=== PATIENT | male | born 1945 | race Caucasian/White ===

== ENCOUNTER 2016-07-21 07:38 | Emergency (ER) | payer MEDICARE, BC ==
[2016-07-21] MEDS ORDERED: OXYMETAZOLINE 0.05% NASL SPRAY 15 ML NASAL STA (08:21)
[2016-07-21] MEDS ORDERED: METOPROLOL TARTRATE 25 MG TAB PO STA (08:21)
[2016-07-21] MEDS: LIDOCAINE/EPINEPHR/TETRACAINE 5 ML BOTTLE TOPICAL ONE ×2 (08:22→08:25)
--- NOTE | 2016-07-21 08:29 | ED ---
ENT HPI - General Chief complaint: ENT Stated complaint: Nosebleed Time Seen by Provider: 07/21/16 08:16 Source: patient, RN notes reviewed Mode of arrival: wheelchair - History of Present Illness Initial comments: 71-year-old male presents to the emergency Department chief complaint epistaxis. Patient states he woke up this morning after starting hischest started bleeding. Mostly from the left they are. Patient denies any falls traumas or injuries. Patient states he had a bloody nose about a week ago but it stopped on its own. Patient states he didn't take his medications morning. Patient denies any pain. Patient denies any lightheadedness or dizziness. Patient states it is not currently having any other symptoms at this time. Patient denies any recent fever, chills, shortness of breath, chest pain, back pain, abdominal pain, nausea vomiting, numbness or tingling, dysuria or hematuria, constipation or diarrhea, headaches or visual changes, or any other current symptoms. - Related Data Home Medications Medication Instructions Recorded Confirmed Amitriptyline HCl [Elavil] 25 mg PO HS 05/12/14 07/21/16 Gabapentin [Neurontin] 400 mg PO BID 05/12/14 07/21/16 HYDROcodone/APAP 7.5-325MG [[place] 1 tab PO TID 05/12/14 07/21/16 7.5-325] Metoprolol Tartrate [Lopressor] 25 mg PO DAILY 05/12/14 07/21/16 Salsalate 750 mg PO BID 05/12/14 07/21/16 Sertraline [Zoloft] 100 mg PO DAILY 05/12/14 07/21/16 Mometasone Furoate [Mometasone 1 applic BOTH EARS DAILY PRN 07/21/16 07/21/16 Furoate 0.1%] Multivitamins, Thera [Multivitamin 1 tab PO DAILY 07/21/16 07/21/16 (formulary)] Previous Rx's Medication Instructions Recorded Amoxicillin/Potassium Clav 1 tab PO Q12HR #6 tab 07/21/16 [Augmentin 875-125 Tablet] Allergies Allergy/AdvReac Type Severity Reaction Status Date / Time No Known Allergies Allergy Verified 07/21/16 08:18 Review of Systems ROS Statement: Those systems with pertinent positive or pertinent negative responses have been documented in the HPI. ROS Other: All systems not noted in ROS Statement are negative. Past Medical History Past Medical History: Cancer, Hypertension, Osteoarthritis (OA) Additional Past Medical History / Comment(s): CHRONIC BACK PAIN, NEUROPATHY, HX OF RADIATION TO PROSTATE History of Any Multi-Drug Resistant Organisms: None Reported Past Surgical History: Hernia Repair, Prostate Surgery Additional Past Surgical History / Comment(s): UMBILICAL AND INGUINAL HERNIA, Past Anesthesia/Blood Transfusion Reactions: No Reported Reaction Past Psychological History: Anxiety Smoking Status: Current every day smoker Past Alcohol Use History: None Reported Additional Past Alcohol Use History / Comment(s): FORMER CIGARETTE SMOKER, DOES CHEW TOBACCO CURRENTLY Past Drug Use History: None Reported General Exam General appearance: alert, in no apparent distress Head exam: Present: atraumatic, normocephalic, normal inspection Eye exam: Present: normal appearance, PERRL, EOMI. Absent: scleral icterus, conjunctival injection, periorbital swelling ENT exam: Present: normal oropharynx, mucous membranes moist, other (Epistaxis noted from left naris) Neck exam: Present: normal inspection. Absent: tenderness, meningismus, lymphadenopathy Respiratory exam: Present: normal lung sounds bilaterally. Absent: respiratory distress, wheezes, rales, rhonchi, stridor Cardiovascular Exam: Present: regular rate, normal rhythm, normal heart sounds. Absent: systolic murmur, diastolic murmur, rubs, gallop, clicks Neurological exam: Present: alert, oriented X3, CN II-XII intact. Absent: motor sensory deficit Psychiatric exam: Present: normal affect, normal mood Skin exam: Present: warm, dry, intact, normal color. Absent: rash Course Vital Signs 07/21/16 07/21/16 07/21/16 07:43 07:59 08:46 Temperature 95.4 F L Pulse Rate 94 73 Respiratory 18 16 Rate Blood Pressure 188/95 162/92 144/91 O2 Sat by Pulse 97 97 Oximetry Medical Decision Making - Medical Decision Making 71-year-old male presents emergency Department chief complaint of epistaxis. At this time patient's nose was cleared and Afrin was sprayed into it. We was applied to the area. At this time the patient continued to have bleeding. Patient was double patch with Murocel. Patient tolerated this well. We discussed follow-up with ENT and given the number. We discussed return 3 days for packing removal if he cannot get in to ENT. Patient is in agreement with plan and questions have been answered. Disposition Clinical Impression: Anterior epistaxis Disposition: HOME SELF-CARE Condition: Stable Instructions: Nosebleed (ED) Additional Instructions: Please use medication as discussed. Please follow up with family doctor if symptoms have not improved over the next two days. Please return to the emergency room if your symptoms increase or worsen or for any other concerns. Patient needs to return the emergency room if packing has not been removed in 3 days. Use antibiotics to help prevent infection due to packing Prescriptions: Amoxicillin/Potassium Clav [Augmentin 875-125 Tablet] 1 tab PO Q12HR #6 tab Referrals: Kris Her MD [Primary Care Provider] - 1-2 days Chris Clemons MD [STAFF PHYSICIAN] - 1-2 days Time of Disposition: 10:06
[2016-07-21 09:18] VITALS: RESP 16
[2016-07-21 10:16] VITALS: BP 135/78; PULSE 60; TEMP 97.7
== END 2016-07-21 10:15 | disposition home or self-care (01) ==
LOC: EC 07:38
DX: R04.0 Epistaxis (principal); I10 Essential (primary) hypertension; F41.9 Anxiety disorder, unspecified; F17.200 Nicotine dependence, unspecified, uncomplicated; M19.90 Unspecified osteoarthritis, unspecified site; F17.220 Nicotine dependence, chewing tobacco, uncomplicated; Z85.9 Personal history of malignant neoplasm, unspecified; Z79.899 Other long term (current) drug therapy
CPT/HCPCS: 30901; 99283

== ENCOUNTER 2016-07-21 20:59 | Emergency (ER) | payer MEDICARE, BC ==
[2016-07-21 21:16] VITALS: RESP 18; TEMP 97.8
[2016-07-21] MEDS ORDERED: OXYMETAZOLINE 0.05% NASL SPRAY 15 ML NASAL STA (22:02)
--- NOTE | 2016-07-21 22:06 | ED ---
General Adult HPI - General Chief complaint: ENT Stated complaint: nose bleed Time Seen by Provider: 07/21/16 21:30 Source: patient, family, RN notes reviewed, old records reviewed Mode of arrival: wheelchair Limitations: no limitations - History of Present Illness Initial comments: Chief complaint and history of present illness a 71-year-old male who is here in the morning for left nares epistaxis. Was controlled that time with a Merocel tampon. He had one placed in both Nares. He was doing fine all day until this evening when he sneezed hard and started to bleed around the packing. No posterior bleeding. - Related Data Home Medications Medication Instructions Recorded Confirmed Amitriptyline HCl [Elavil] 25 mg PO HS 05/12/14 07/21/16 Gabapentin [Neurontin] 400 mg PO BID 05/12/14 07/21/16 HYDROcodone/APAP 7.5-325MG [[place] 1 tab PO TID 05/12/14 07/21/16 7.5-325] Metoprolol Tartrate [Lopressor] 25 mg PO DAILY 05/12/14 07/21/16 Salsalate 750 mg PO BID 05/12/14 07/21/16 Sertraline [Zoloft] 100 mg PO DAILY 05/12/14 07/21/16 Mometasone Furoate [Mometasone 1 applic BOTH EARS DAILY PRN 07/21/16 07/21/16 Furoate 0.1%] Multivitamins, Thera [Multivitamin 1 tab PO DAILY 07/21/16 07/21/16 (formulary)] Previous Rx's Medication Instructions Recorded Amoxicillin/Potassium Clav 1 tab PO Q12HR #6 tab 07/21/16 [Augmentin 875-125 Tablet] Allergies Allergy/AdvReac Type Severity Reaction Status Date / Time No Known Allergies Allergy Verified 07/21/16 21:56 Review of Systems ROS Statement: Those systems with pertinent positive or pertinent negative responses have been documented in the HPI. Review of systems patient denying any headache he is hard of hearing. He did have some blood coming out of the tear ducts of his eyes. This started after he sneezed. No nausea no vomiting no chest pain. All systems reviewed. Past medical problems significant for prostate cancer. Hypertension osteoarthritis. Also has a history of chronic back pain and chronic neuropathy. The patient' s surgeries include prostate surgery and hernia repair, patient has a past history psychological history of anxiety. Used to be a smoker stop his smoking does chew tobacco now. ROS Other: All systems not noted in ROS Statement are negative. Past Medical History Past Medical History: Cancer, Hypertension, Osteoarthritis (OA) Additional Past Medical History / Comment(s): CHRONIC BACK PAIN, NEUROPATHY, HX OF RADIATION TO PROSTATE History of Any Multi-Drug Resistant Organisms: None Reported Past Surgical History: Hernia Repair, Prostate Surgery Additional Past Surgical History / Comment(s): UMBILICAL AND INGUINAL HERNIA, Past Anesthesia/Blood Transfusion Reactions: No Reported Reaction Past Psychological History: Anxiety Smoking Status: Current every day smoker Past Alcohol Use History: None Reported Additional Past Alcohol Use History / Comment(s): FORMER CIGARETTE SMOKER, DOES CHEW TOBACCO CURRENTLY Past Drug Use History: None Reported General Exam - General Exam Comments Initial Comments: General: The patient is awake and alert, hard of hearing, bleeding from both nares. Patient had both nares packed this morning because of a left-sided epistaxis. Temp 97.8 pulse 97 respiratory rate 18 pulse ox 96% room air blood pressure 146/ 80. Eye: Pupils are equal, round and reactive to light, extra-ocular movements are intact ; there is normal conjunctiva bilaterally. No signs of icterus. She does have blood coming through the tear ducts because of obstruction caused by his nasal tampons for epistaxis. The blood stopped coming through the tear ducts when the tampons were removed from the nose. Ears, nose, mouth and throat: Epistaxis. Nasal tampons removed. Replaced with shorter marrow cells that were then soaked with Afrin nasal spray. Bleeding controlled. Neck: The neck is supple, there is no tenderness . Cardiovascular: There is a regular rate and rhythm. No murmur, rub or gallop is appreciated. Respiratory: Lungs are clear to auscultation, respirations are non-labored, breath sounds are equal. No wheezes, stridor, rales, or rhonchi. No complaint nausea vomiting or diarrhea. Limitations: no limitations Course Vital Signs 07/21/16 21:14 Temperature 97.8 F Pulse Rate 97 Respiratory 18 Rate Blood Pressure 146/80 O2 Sat by Pulse 96 Oximetry Procedures - Procedures Initial comment: Procedure; the 2 Merocel sponges had been placed this morning were dislodged by the patient's knees. He is bleeding around the sponges. They're both removed patient then blew his nose until all clots removed fresh blood was coming out. And then 2 shorter Merocel sponges were placed in the left and right nares. They're within so with Afrin nasal spray and the bleeding stopped. There is no evidence of any time a posterior bleeding. No anterior bleeding this time either. The patient be observed and then discharged home to continue with his antibiotics and then also advised to put several drops of the provided nasal spray on the sponges every several hours to keep them moist. If at any time the patient has posterior bleeding his return emergency room. Patient vital signs are stable blood pressure upon arrival was 146/80. Also noted the patient is taking an aspirin product to be told not to take this with the next several days. Dr. Mahajan Medical Decision Making - Medical Decision Making Medical decision-making. As noted in the procedure the patient's Merocel tampons or removed 2 more were replaced after being coated with bacitracin they were then saturated with Afrin nasal spray. Patient was also told not take his aspirin products until he talks his family physician in the next several days. Disposition Clinical Impression: Anterior epistaxis Disposition: HOME SELF-CARE Condition: Stable Instructions: Nosebleed (ED) Referrals: Kris Her MD [Primary Care Provider] - 1-2 days Time of Disposition: 22:57
[2016-07-21] MEDS ORDERED: cloNIDine HCL 0.1 MG TAB PO STA (23:10)
[2016-07-21 23:46] VITALS: BP 162/95; PULSE 79
== END 2016-07-21 23:45 | disposition home or self-care (01) ==
LOC: EC 20:59
DX: R04.0 Epistaxis (principal); I10 Essential (primary) hypertension; M19.90 Unspecified osteoarthritis, unspecified site; F41.9 Anxiety disorder, unspecified; F17.220 Nicotine dependence, chewing tobacco, uncomplicated; Z85.46 Personal history of malignant neoplasm of prostate; Z79.891 Long term (current) use of opiate analgesic
CPT/HCPCS: 30901; 99283

== ENCOUNTER → 2016-08-04 | Outpatient (CLI) | payer MEDICARE, BC ==
[2016-08-04 14:24] LABS: Basophils # (A) 0.1 k/uL (0-0.2); Basophils % (A) 1 %; CH 33.1; CHCM 33.6; Eosinophils # (A) 0.5 k/uL (0-0.7); Eosinophils % (A) 5 %; HCT 47.6 % (39.0-53.0); HDW 2.44; HGB 15.4 gm/dL (13.0-17.5); Luc # (Auto) 0.18; Luc % (Auto) 2; Lymphocytes # (A) 1.4 k/uL (1.0-4.8); Lymphocytes % (A) 15 %; MCH 32.1 pg (25.0-35.0); MCHC 32.4 g/dL (31.0-37.0); Mean Platelet Volume 9.8; Monocytes # (A) 0.7 k/uL (0-1.0); Monocytes % (A) 7 %; Neutrophils # (A) 6.8 k/uL (1.3-7.7); Neutrophils % (A) 71 %; RBC 4.81 m/uL (4.30-5.90); RDW 12.6 % (11.5-15.5); WBC 9.6 k/uL (3.8-10.6); WBC (Perox) 9.27
[2016-08-04 14:31] LABS: Partial Thromboplastin Time 23.4 sec (22.0-30.0); Prothrombin Time 10.5 sec (9.0-12.0)
--- NOTE | 2016-08-04 15:12 | CT ---
EXAMINATION TYPE: CT sinus wo con DATE OF EXAM: 08/04/2016 1:50 PM COMPARISON: NONE HISTORY: 71-year-old male sudden onset nose bleeds CT DLP: 219 mGycm Automated exposure control for dose reduction was used. TECHNIQUE: Noncontrast axial views of the paranasal sinuses were obtained. Coronal reconstructions pe rformed. FINDINGS: Moderate mucosal thickening scattered throughout the ethmoid air cells. Polyp or mucosal cysts along the inferior right maxillary sinus. Larger irregular area of partial opa cification in the left maxillary sinus could represent a polyp. There is no air-fluid level. Reactive royal- osteogenesis is not seen. There is no destruction of the osseous aggarwal of the paranasal sinuses. The osteomeatal complexes are patent. Prominent leftward nasal septal deviation The imaged brain shows mild generalized volume loss. Orbits are normal in appearance. Mastoid air cells and middle ear cavities are well pneumatized. Reformatted images confirm above findings. IMPRESSION: 1. Prominent leftward nasal septal deviation. 2. Moderate chronic ethmoid and maxillary sinus disease. 3. An irregular area of partial opacification within the left maxillary sinus could represent a polyp .
== END | disposition home or self-care (01) ==
LOC: RADCTMAIN 13:06
PROVIDERS: ATTEND Otolaryngology
DX: J32.0 Chronic maxillary sinusitis (principal); J32.2 Chronic ethmoidal sinusitis; J34.2 Deviated nasal septum; R04.0 Epistaxis
CPT/HCPCS: 36415; 70486; 85025; 85610; 85730

== ENCOUNTER → 2016-09-03 | Outpatient (CLI) | payer MEDICARE, BC ==
[2016-09-03 16:04] LABS: Basophils # (A) 0.1 k/uL (0-0.2); Basophils % (A) 0 %; CH 31.6; CHCM 32.5; Eosinophils # (A) 0.4 k/uL (0-0.7); Eosinophils % (A) 3 %; HCT 42.7 % (39.0-53.0); HDW 2.51; Luc # (Auto) 0.21; Luc % (Auto) 1; Lymphocytes # (A) 1.5 k/uL (1.0-4.8); Lymphocytes % (A) 10 %; MCHC 32.8 g/dL (31.0-37.0); MCV 97.7 fL (80.0-100.0); Mean Platelet Volume 9.4; Monocytes # (A) 0.8 k/uL (0-1.0); Monocytes % (A) 5 %; Neutrophils # (A) 12.2 k/uL (1.3-7.7); Neutrophils % (A) 81 %; RBC 4.37 m/uL (4.30-5.90); WBC 15.1 k/uL (3.8-10.6); WBC (Perox) 14.91
[2016-09-03 16:14] LABS: ALT 30 U/L (21-72); AST 37 U/L (17-59); Alkaline Phosphatase 136 U/L (38-126); Amylase 43 U/L (30-110); Anion Gap 12 mmol/L; Blood Urea Nitrogen 17 mg/dL (9-20); Calcium 9.5 mg/dL (8.4-10.2); Carbon Dioxide 26 mmol/L (22-30); Chloride 101 mmol/L (98-107); Glucose 164 mg/dL (74-99); Non-African American GFR(MDRD) >60 (>60 ml/min/1.73 sqM); Potassium 4.5 mmol/L (3.5-5.1); Sodium 139 mmol/L (137-145); Total Bilirubin 0.6 mg/dL (0.2-1.3)
--- NOTE | 2016-09-03 18:18 | CT ---
EXAMINATION TYPE: CT abdomen pelvis w con DATE OF EXAM: 09/03/2016 5:53 PM COMPARISON: 03/13/2016 HISTORY: Pain, food not going down CT DLP: 1882 mGycm Automated exposure control for dose reduction was used. TECHNIQUE: Helical acquisition of images was performed from the lung bases through the pelvis. CONTRAST: Performed with Oral Contrast and with IV Contrast, patient injected with 100 mL of Omnipaque 300. FINDINGS: There is mild subsegmental atelectasis at the left lung base. There is no pleural effusion. There are multiple subtle hypodense foci in the liver that measure up to the most 2 cm. Bile ducts are not dil ated. Gallbladder appears normal. There is no pancreatic mass. There are small calcified splenic gran ulomata. There are bilateral renal cortical cysts and the largest is on the upper pole left kidney po steriorly and measures 5 cm. There is no hydronephrosis. There is a 3 mm calcification in the lower p ole left kidney. There is a 1 cm splenic cyst. There is no adrenal mass. There is no retroperitoneal adenopathy. There is no ascites. There is a 9 x 3 cm fluid collection on the anterior abdominal wall in the midline consistent with a seroma. I see no pelvic mass. There are surgical clips at the floor the pelvis. There is mild thickening of the uri nary bladder wall and more noticeable on the anterior floor of the bladder on the left side of midlin e. There is no free fluid in the pelvis. Appendix appears normal. I see no bony destructive process. There is no compression fracture. IMPRESSION: SINCE THE LAST CT SCAN THERE IS APPEARANCE OF MULTIPLE SUBTLE HYPODENSE LIVER LESIONS THAT ARE SUSPIC IOUS FOR METASTATIC DISEASE. STABLE BILATERAL RENAL CORTICAL CYSTS. NONOBSTRUCTING SMALL LEFT RENAL CALCULUS. STABLE SUBCUTANEOUS FLUID COLLECTION OVER THE ANTERIOR LOWER ABDOMEN CONSISTENT WITH CHRONIC HEMATOMA OR SEROMA. ATHEROSCLEROTIC VASCULAR DISEASE. STABLE 4.6 CM LOWER ABDOMINAL AORTIC ANEURYSM. STABLE MILD ANEURYSM OF THE COMMON ILIAC ARTERIES. NORMAL APPENDIX. THERE IS NEW MILD SUBSEGMENTAL ATELECTASIS AT THE LEF T LUNG BASE. Surgery noted at the floor the pelvis consistent with prostate surgery. There is some bl adder wall thickening on the left side and recurrent tumor or primary bladder tumor cannot be exclude d.
== END | disposition home or self-care (01) ==
LOC: RADCTMAIN 15:24
PROVIDERS: ATTEND Family Medicine
DX: N20.0 Calculus of kidney (principal); I71.4 Abdominal aortic aneurysm, without rupture; N28.1 Cyst of kidney, acquired; I72.3 Aneurysm of iliac artery; K76.9 Liver disease, unspecified; I70.90 Unspecified atherosclerosis; R18.8 Other ascites; Z98.890 Other specified postprocedural states
CPT/HCPCS: 80053; 82150; 83690; 85025; 74177; Q9967

== ENCOUNTER 2016-09-16 12:05 | Day surgery (SDC) | payer MEDICARE, BC ==
[2016-09-12 11:17] VITALS: BMI 32.7
[~2016-09-16 12:05] MED LIST: LACTATED RINGERS 1,000 ML IV SCH
[2016-09-16] MEDS ORDERED: LIDOCAINE 1% 20 ML VIAL (10MG/ML) FOR IV START INTRADERMA ONE (13:01)
[2016-09-16 13:03] VITALS: RESP 16; TEMP 98.1
[2016-09-16] MEDS ORDERED: PROPOFOL 10 MG/ML 20 ML VIAL IV ONE (13:25)
[2016-09-16] MEDS ORDERED: LIDOCAINE 1% INJ 10MG/ML (20 ML MDV) ONE (13:25)
[2016-09-16 14:09] VITALS: BP 139/80; PULSE 74
--- NOTE | 2016-09-16 14:52 | P.PCN ---
Date of Procedure: 09/16/16 Preoperative Diagnosis: Postoperative Diagnosis: Procedure(s) Performed: Procedure: Esophagogastroduodenoscopy and biopsy. Preoperative diagnosis: Epigastric pain and weight loss. Postoperative diagnosis: 1. Ulcerated mass in the distal esophagus/cardia with some degree of obstruction, biopsies obtained. 2. Mild gastritis and duodenitis , biopsies obtained. Preparation and sedation: Was provided by anesthesia. Brief clinical history: The patient is a 71-year-old male who has been experiencing epigastric pain and early satiety and fullness after eating a few bites only and weight loss of around 30 pounds over the last month. CT of the abdomen performed last month showed hypodense lesions in the liver consistent with metastatic disease. This evaluation is requested to rule out esophageal or gastric pathology. Procedure: With the patient on his left lateral decubitus position and after informed consent and adequate sedation, I passed the Olympus-GIF 160 video upper endoscope through the cricopharyngeus down the esophagus. The esophagus did not show any proximal abnormalities. In the distal esophagus and extending into the cardia there was an ulcerated mass consistent with cancer. This was causing some degree obstruction but I was able to pass the endoscope without difficulty across the distal esophagus into the stomach. In the retroflex view in the cardia I could see the abnormal mass as well. GE junction was around 41 cm from the incisors and there was a hiatal hernia but no obvious Vanegas's esophagus. Pictures were taken in both the forward and retroflex view and I obtained biopsies in that area, in the distal esophagus/cardia, at the conclusion of the exam. The stomach was insufflated with air then the endoscope was passed through the pylorus into the duodenum. There was minimal mottling and erythema in the antrum and duodenum but no ulcers, bleeding, gastric outlet obstruction or other pathology. I obtained biopsies from the antrum then I obtained multiple biopsies from the esophageal/cardia mass then the endoscope was withdrawn. The patient tolerated the procedure well. Plan: I summarized the findings to the patient. He is scheduled for a liver biopsy on . I understand he will be following up with you after that. Further plans can be made based on his course and biopsy results. Implants: Indications for Procedure: Operative Findings: Description of Procedure:
== END 2016-09-16 14:21 | disposition home or self-care (01) ==
LOC: ORWHC2ENDO 12:05
DX: C16.0 Malignant neoplasm of cardia (principal); K29.50 Unspecified chronic gastritis without bleeding; K29.80 Duodenitis without bleeding; K76.9 Liver disease, unspecified; K44.9 Diaphragmatic hernia without obstruction or gangrene; I10 Essential (primary) hypertension; C61 Malignant neoplasm of prostate; Z88.1 Allergy status to other antibiotic agents; Z79.891 Long term (current) use of opiate analgesic; Z79.899 Other long term (current) drug therapy
CPT/HCPCS: 88305; 88342; 88341; 43239; J2001; J2704

== ENCOUNTER 2016-09-18 09:10 | Day surgery (SDC) | payer MEDICARE, BC ==
[2016-09-18 09:53] VITALS: RESP 14; TEMP 98.2
[2016-09-18 09:54] LABS: Mean Platelet Volume 9.6
[2016-09-18] MEDS ORDERED: ALPRAZolam 0.25 MG TAB PO STA (09:56)
[2016-09-18] MEDS ORDERED: HYDROmorphone 1 MG/ML 1 ML SYRINGE IVP STA (09:56)
[2016-09-18 09:58] LABS: INR 1.2 (<1.1)
--- NOTE | 2016-09-18 11:22 | US ---
EXAMINATION TYPE: US biopsy liver DATE OF EXAM: 09/18/2016 HISTORY: Liver masses. FINDINGS: Maximal barrier technique was utilized. The skin overlying a suitable path to the patient' s mass in the right lobe was localized with ultrasound and the overlying skin prepped and draped. Ul trasound was utilized with sterile technique. Lidocaine was used for local anesthesia. A skin leann was made with a scalpel. An 18-gauge needle was advanced under direct ultrasound guidance and core s pecimen obtained of the mass. Specimen submitted in formalin to Pathology. Following the procedure, hemostasis achieved and the patient is discharged in stable condition without complication. Impression: status POST ULTRASOUND GUIDED CORE BIOPSY OF right lobe liver MASS, PATHOLOGY IS PENDING. THIS PROCEDURE IS PERFORMED BY THE UNDERSIGNED. Multiple liver masses are present.
[2016-09-18 15:21] VITALS: BP 100/53; PULSE 62
== END 2016-09-18 15:10 | disposition home or self-care (01) ==
LOC: RADPROMAIN 09:10
PROVIDERS: ATTEND Internal Medicine Hematology & Oncology
DX: C78.7 Secondary malignant neoplasm of liver and intrahepatic bile duct (principal); C61 Malignant neoplasm of prostate
CPT/HCPCS: 85049; 85610; 88342; 88307; 88341; 96374; 47000; 76942; J1170

== ENCOUNTER 2016-09-25 14:36 | Inpatient (IN) | payer MEDICARE, BC ==
[2016-09-25] MEDS ORDERED: MOMETASONE FUROATE BOTH EARS PRN (15:43)
[2016-09-25] MEDS ORDERED: AMITRIPTYLINE HCL 25 MG TAB PO PRN (15:43)
[2016-09-25] MEDS ORDERED: ONDANSETRON 4 MG/2 ML VIAL IVP PRN (15:57)
[2016-09-25 16:29] LABS: Basophils % (A) 0 %; CH 30.8; CHCM 32.3; Eosinophils # (A) 0.2 k/uL (0-0.7); Eosinophils % (A) 1 %; HCT 37.9 % (39.0-53.0); HDW 2.39; Luc # (Auto) 0.26; Luc % (Auto) 1; Lymphocytes # (A) 0.9 k/uL (1.0-4.8); Lymphocytes % (A) 4 %; MCH 30.2 pg (25.0-35.0); MCHC 31.6 g/dL (31.0-37.0); MCV 95.6 fL (80.0-100.0); Mean Platelet Volume 9.8; Monocytes # (A) 1.3 k/uL (0-1.0); Monocytes % (A) 6 %; Neutrophils # (A) 18.7 k/uL (1.3-7.7); Neutrophils % (A) 88 %; RBC 3.96 m/uL (4.30-5.90); RDW 12.4 % (11.5-15.5); WBC 21.4 k/uL (3.8-10.6); WBC (Perox) 22.21
[2016-09-25 16:36] LABS: ALT 47 U/L (21-72); AST 56 U/L (17-59); Alkaline Phosphatase 309 U/L (38-126); Anion Gap 9 mmol/L; Blood Urea Nitrogen 18 mg/dL (9-20); Calcium 8.9 mg/dL (8.4-10.2); Carbon Dioxide 28 mmol/L (22-30); Chloride 97 mmol/L (98-107); Glucose 149 mg/dL (74-99); Non-African American GFR(MDRD) >60 (>60 ml/min/1.73 sqM); Potassium 4.6 mmol/L (3.5-5.1); Sodium 134 mmol/L (137-145); Total Bilirubin 0.8 mg/dL (0.2-1.3)
[2016-09-25 16:40] LABS: INR 1.2 (<1.1); Prothrombin Time 12.2 sec (9.0-12.0)
[2016-09-25] MEDS: HYDROcodone/APAP 7.5-325MG 1 EACH TAB PO PRN (17:06)
[2016-09-25] MEDS: SODIUM CHLORIDE 0.9% 1,000 ML IV SCH (17:07)
--- NOTE | 2016-09-25 17:08 | P.PN ---
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 He was being seen in office today and was evaluated as being dehydrated with significant dysphagia and odynophagia. He was admitted directly from office for hydration, consult Dr. Goldberg for PEG tube insertion and port placement-Dr. Millan spoke with him. Consults for Dietitian and PT. Orders entered, spoke with nursing. Formal H&P in AM. Objective - Vital Signs Vital signs: Vital Signs Temp 98.3 F 09/25/16 15:00 Pulse 85 09/25/16 15:00 Resp 20 09/25/16 15:00 BP 128/68 09/25/16 15:00 Pulse Ox 95 09/25/16 15:00 Intake & Output 09/24/16 09/25/16 09/25/16 18:59 06:59 18:59 Weight 106.594 kg - Labs CBC & Chem 7: 09/25/16 16:12 09/25/16 16:12 Labs: Abnormal Lab Results - Last 24 Hours (Table) 09/25/16 09/25/16 09/25/16 Range/Units 16:12 16:12 16:12 WBC 21.4 H (3.8-10.6) k/uL RBC 3.96 L (4.30-5.90) m/uL Hgb 12.0 L (13.0-17.5) gm/dL Hct 37.9 L (39.0-53.0) % Neutrophils # 18.7 H (1.3-7.7) k/uL Lymphocytes # 0.9 L (1.0-4.8) k/uL Monocytes # 1.3 H (0-1.0) k/uL PT 12.2 H (9.0-12.0) sec Sodium 134 L (137-145) mmol/L Chloride 97 L (98-107) mmol/L Glucose 149 H (74-99) mg/dL Alkaline Phosphatase 309 H (38-126) U/L Total Protein 6.0 L (6.3-8.2) g/dL Albumin 2.9 L (3.5-5.0) g/dL Assessment and Plan (1) Dehydration Narrative/Plan: IVF resuscitation initiated. Clear liquid diet until Sppech Therapy eval Status: Acute (2) Metastatic adenocarcinoma Narrative/Plan: New diagnosis, Port being placed for chemo Status: Acute (3) Dysphagia Status: Acute (4) Odynophagia Status: Acute Plan: PEG being placed for nutrition while on chemo. Surgery and Dietitian consulted. SCDs for DVT prophylaxis GI prophylaxis Pt seen in office, will see pt in hospital in AM Orders reviewed with nursing
[2016-09-25] MEDS: GABAPENTIN 400 MG CAP PO SCH (20:57)
[2016-09-26] MEDS: SODIUM CHLORIDE 0.9% 1,000 ML IV SCH ×3 (06:15→16:35)
[2016-09-26] MEDS: GABAPENTIN 400 MG CAP PO SCH ×2 (09:18→21:38)
[2016-09-26] MEDS: PANTOPRAZOLE 40 MG/10 ML VIAL IVP SCH (09:18)
[2016-09-26] MEDS: MULTIVITAMINS, THERA 1 EACH TAB PO SCH (09:18)
[2016-09-26] MEDS: METOPROLOL TARTRATE 25 MG TAB PO SCH (09:18)
[2016-09-26] MEDS: SERTRALINE 100 MG TAB PO SCH (09:18)
[2016-09-26] MEDS ORDERED: IV FLUID CONTINUATION 1,000 ML IV ONE (12:00)
[2016-09-26] MEDS ORDERED: DEXAMETHASONE SOD PHOSPHATE 10 MG/ML 1 ML VIAL IV ONE (12:31)
[2016-09-26] MEDS ORDERED: ONDANSETRON 4 MG/2 ML VIAL IVP ONE (12:32)
[2016-09-26] MEDS ORDERED: LIDOCAINE (PF) 10 MG/ML 2 ML VIAL SQ ONE (13:27)
[2016-09-26] MEDS ORDERED: HEPARIN SODIUM,PORCINE 100 UNIT/ML 5 ML VIAL IV ONE ×2 (13:27→14:30)
--- NOTE | 2016-09-26 13:40 | P.GSCN ---
History of Present Illness Consult date: 09/26/16 Reason for Consult: Esophageal cancer History of present illness: Patient was admitted yesterday with complaints of dysphagia and malnutrition. We were asked to see this patient for PEG tube placement and Port-A-Cath placement. He is to begin chemotherapy in the next several days. Describes progressive dysphasia over the last 2 months or so. He had an upper endoscopy performed by Dr. Limon showing a obstructing lesion. Workup has shown multiple liver metastasis. Past Medical History Past Medical History: Cancer, Hypertension, Osteoarthritis (OA) Additional Past Medical History / Comment(s): CHRONIC BACK PAIN, Hx prostate cancer 1995 HAD SX And radiation-pt incont of urien wears a pad.hepatitis as child. 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 "recently dx w esopaheal ca and mets to liver. History of Any Multi-Drug Resistant Organisms: None Reported Past Surgical History: Hernia Repair, Prostate Surgery Additional Past Surgical History / Comment(s): UMBILICAL AND INGUINAL HERNIA, surgery for nose bleeds, egd w/ bx, liver bx, prostatectomy Past Anesthesia/Blood Transfusion Reactions: No Reported Reaction Smoking Status: Former smoker - Past Family History Mother Family Medical History: CVA/TIA Additional Family Medical History / Comment(s): mom from a stroke when pt was 4 years old. Father Family Medical History: No Reported History Medications and Allergies Home Medications Medication Instructions Recorded Confirmed Type Amitriptyline HCl [Elavil] 25 mg PO HS PRN 05/12/14 09/25/16 History Gabapentin [Neurontin] 400 mg PO BID 05/12/14 09/25/16 History HYDROcodone/APAP 7.5-325MG [[place] 1 tab PO TID PRN 05/12/14 09/25/16 History 7.5-325] Metoprolol Tartrate [Lopressor] 25 mg PO DAILY 05/12/14 09/25/16 History Sertraline [Zoloft] 100 mg PO DAILY 05/12/14 09/25/16 History Mometasone Furoate [Mometasone 1 applic BOTH EARS DAILY PRN 07/21/16 09/25/16 History Furoate 0.1%] Multivitamins, Thera [Multivitamin 1 tab PO DAILY 07/21/16 09/25/16 History (formulary)] Allergies Allergy/AdvReac Type Severity Reaction Status Date / Time cephalexin [From Keflex] Allergy Rash/Hives Verified 09/25/16 15:31 Surgical - Exam Vital Signs Temp Pulse Resp BP Pulse Ox 98.3 F 85 20 128/68 95 09/25/16 15:00 09/25/16 15:00 09/25/16 15:00 09/25/16 15:00 09/25/16 15:00 Physical exam: General: Well-developed, well-nourished HEENT: Normocephalic, sclerae nonicteric Abdomen: Nontender, nondistended Extremities: No edema Neuro: Alert and oriented Results - Labs 09/25/16 16:12 09/25/16 16:12 Abnormal Lab Results - Last 24 Hours (Table) 09/25/16 09/25/16 09/25/16 Range/Units 16:12 16:12 16:12 WBC 21.4 H (3.8-10.6) k/uL RBC 3.96 L (4.30-5.90) m/uL Hgb 12.0 L (13.0-17.5) gm/dL Hct 37.9 L (39.0-53.0) % Neutrophils # 18.7 H (1.3-7.7) k/uL Lymphocytes # 0.9 L (1.0-4.8) k/uL Monocytes # 1.3 H (0-1.0) k/uL PT 12.2 H (9.0-12.0) sec Sodium 134 L (137-145) mmol/L Chloride 97 L (98-107) mmol/L Glucose 149 H (74-99) mg/dL Alkaline Phosphatase 309 H (38-126) U/L Total Protein 6.0 L (6.3-8.2) g/dL Albumin 2.9 L (3.5-5.0) g/dL Diabetes panel 09/25/16 Range/Units 16:12 Sodium 134 L (137-145) mmol/L Potassium 4.6 (3.5-5.1) mmol/L Chloride 97 L (98-107) mmol/L Carbon Dioxide 28 (22-30) mmol/L BUN 18 (9-20) mg/dL Creatinine 0.78 (0.66-1.25) mg/dL Glucose 149 H (74-99) mg/dL Calcium 8.9 (8.4-10.2) mg/dL AST 56 (17-59) U/L ALT 47 (21-72) U/L Alkaline Phosphatase 309 H (38-126) U/L Total Protein 6.0 L (6.3-8.2) g/dL Albumin 2.9 L (3.5-5.0) g/dL Calcium panel 09/25/16 Range/Units 16:12 Calcium 8.9 (8.4-10.2) mg/dL Albumin 2.9 L (3.5-5.0) g/dL Pituitary panel 09/25/16 Range/Units 16:12 Sodium 134 L (137-145) mmol/L Potassium 4.6 (3.5-5.1) mmol/L Chloride 97 L (98-107) mmol/L Carbon Dioxide 28 (22-30) mmol/L BUN 18 (9-20) mg/dL Creatinine 0.78 (0.66-1.25) mg/dL Glucose 149 H (74-99) mg/dL Calcium 8.9 (8.4-10.2) mg/dL Adrenal panel 09/25/16 Range/Units 16:12 Sodium 134 L (137-145) mmol/L Potassium 4.6 (3.5-5.1) mmol/L Chloride 97 L (98-107) mmol/L Carbon Dioxide 28 (22-30) mmol/L BUN 18 (9-20) mg/dL Creatinine 0.78 (0.66-1.25) mg/dL Glucose 149 H (74-99) mg/dL Calcium 8.9 (8.4-10.2) mg/dL Total Bilirubin 0.8 (0.2-1.3) mg/dL AST 56 (17-59) U/L ALT 47 (21-72) U/L Alkaline Phosphatase 309 H (38-126) U/L Total Protein 6.0 L (6.3-8.2) g/dL Albumin 2.9 L (3.5-5.0) g/dL Assessment and Plan (1) Metastatic adenocarcinoma Narrative/Plan: Port-A-Cath placement and EGD with PEG tube placement today. Risks of bleeding infection and catheter malfunction discussed. They understand and wish to proceed. Status: Acute
[2016-09-26] MEDS ORDERED: fentaNYL (PF) 50 MCG/ML 2 ML AMP ONE (14:09)
[2016-09-26] MEDS ORDERED: PROPOFOL 10 MG/ML 20 ML VIAL IV ONE (14:09)
[2016-09-26] MEDS ORDERED: MIDAZOLAM 2 MG/2 ML VIAL ONE (14:09)
[2016-09-26] MEDS ORDERED: LIDOCAINE 1% (PF) 10MG/ML VIAL SQ ONE (14:30)
[2016-09-26] MEDS ORDERED: LACTATED RINGERS 1,000 ML IV ONE (14:47)
--- NOTE | 2016-09-26 15:04 | P.PCN ---
Date of Procedure: 09/26/16 Preoperative Diagnosis: Postoperative Diagnosis: Procedure(s) Performed: PREOPERATIVE DIAGNOSIS: Esophageal cancer POSTOPERATIVE DIAGNOSIS: Same PROCEDURE: Port-A-Cath placement, EGD with PEG tube placement SURGEON: Ashlyn EBL: Minimal ANESTHESIA: Sedation COMPLICATIONS: None OPERATIVE PROCEDURE: Patient was brought and placed on the operative table in the supine position. The patient was sedated per anesthesia that time. The chest and neck were prepped and draped in usual sterile fashion. The ultrasound probe was used to identify the location of the right internal jugular vein. The skin was localized with lidocaine. The Seldinger needle was advanced into the IJ under ultrasound guidance. The wire was advanced through the needle under fluoroscopic guidance into the superior vena cava. A port pocket was created in the right infraclavicular location. The catheter was tunneled from the wire entrance site to the port pocket. The port was then connected to the catheter. The dilator introducer was threaded over the guidewire. The guidewire and dilator were then removed. The catheter was advanced through the introducer and introducer was then removed. The tip was seen to be in the right atrial junction. Port was flushed with both saline and a Hep-Lock solution. There was good flow both in and out of the port. The port was sutured in underlying tissues using 3-0 silk sutures. The subcutaneous tissues were reapproximated using 3-0 Vicryl sutures and the skin at both locations using 4-0 Monocryl sutures. Steri-Strips and sterile dressings then applied. The Olympus gastroscope was inserted into the oropharynx and passed under direct visualization to the region of the duodenum. The patient's esophageal mass did not obstruct the passage of our scope. The pylorus was widely patent. The stomach was carefully inspected. The stomach was fully insufflated with air. The abdominal wall was inspected. The light was seen shining through the abdominal wall in the left upper quadrant. This site was chosen for PEG tube placement. The area was prepped in the usual sterile fashion. This area was then localized with lidocaine. A small vertical incision was made using the scalpel. The Seldinger needle was advanced into the lumen of the stomach the wire was advanced. The wire was grasped with an endoscopic snare. The wire was pulled through the oropharynx. The catheter was then threaded over the guidewire and the guidewire and catheter were pulled anteriorly until the hub of the PEG tube catheter was seated against the anterior wall the stomach. The circular bolster was applied and tightened down. The endoscope was then readvanced into the stomach. There was no evidence of any bleeding and there was appropriate tightness on the bolster. The catheter was cut appropriately. The dual port feeding adapter was applied. DISPOSITION: Stable to recovery room Implants: Indications for Procedure: Operative Findings: Description of Procedure:
--- NOTE | 2016-09-26 15:28 | XR ---
EXAMINATION TYPE: XR chest 1V confirm line [facility] DATE OF EXAM: 09/26/2016 COMPARISON: NONE HISTORY: Status post central venous catheter placement TECHNIQUE: Single frontal view of the chest is obtained. FINDINGS: Right-sided central venous catheter is present via jugular approach, distal tip is overlyi ng the region of the cavoatrial junction, port is in the right pectoral region. There is no evident p neumothorax or pleural effusion. IMPRESSION: No evident complication status post central venous catheter placement.
[2016-09-26] MEDS: HYDROcodone/APAP 7.5-325MG 1 EACH TAB PO PRN ×2 (15:57→21:37)
--- NOTE | 2016-09-26 15:59 | FL ---
Fluoroscopy HISTORY: Pain 4 seconds fluoroscopy time supplied to the referring clinician. 1 intraoperative C-arm images docume nt the procedure. See dictated report from general surgery.
--- NOTE | 2016-09-26 17:10 | P.HPIM ---
History of Present Illness H&P Date: 09/26/16 Chief Complaint: anorexia Mr. Luke is a very pleasant male pt of Dr. Millan who was referred by Dr. Her for evaluation of possible malignancy, 1st seen 09/10/16. Pt had c/ o progressive epigastric pain, onset 10-20 min after meals resulting in nausea, rare vomiting, symptoms alleviated by laying in supine position X 30 min. He had negative Colonoscopy by Dr. Arnold in May 2016 other then a cecal polyp. CT AP 09/03 revealed multiple small liver lesions that were new compared to study of Feb 2016. CBC revealed leukocytosis and minimally increased ALK-P. Pt has been progressively anorexic and lost 26 LBS in last 3 months. Pt had EGD with biopsy with Dr. 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 Pt was seen in office for results and plan of care on 09/25/16 when he noted to be progressively declining , pt in general not feeling well, progressive dysphagia, inability to sustain any solids/liquids. Decision was made to admit pt for hydration, PEG insertion for nutrition and port placement as pt is interested in palliative chemotherapy. Pt seen today post op, he is tired and sore but otherwise he is tolerating sips of water, no nausea, SOB, need to go to the bathroom, pt is ambulating. Review of Systems All systems: negative Constitutional: Reports as per HPI Past Medical History Past Medical History: Cancer, Hypertension, Osteoarthritis (OA) Additional Past Medical History / Comment(s): CHRONIC BACK PAIN, Hx prostate cancer 1995 HAD SX And radiation-pt incont of urien wears a pad.hepatitis as child. 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 "recently dx w esopaheal ca and mets to liver. History of Any Multi-Drug Resistant Organisms: None Reported Past Surgical History: Hernia Repair, Prostate Surgery Additional Past Surgical History / Comment(s): UMBILICAL AND INGUINAL HERNIA, surgery for nose bleeds, egd w/ bx, liver bx, prostatectomy Past Anesthesia/Blood Transfusion Reactions: No Reported Reaction Smoking Status: Former smoker - Past Family History Mother Family Medical History: CVA/TIA Additional Family Medical History / Comment(s): mom from a stroke when pt was 4 years old. Father Family Medical History: No Reported History Medications and Allergies Home Medications Medication Instructions Recorded Confirmed Type Amitriptyline HCl [Elavil] 25 mg PO HS PRN 05/12/14 09/25/16 History Gabapentin [Neurontin] 400 mg PO BID 05/12/14 09/25/16 History HYDROcodone/APAP 7.5-325MG [[place] 1 tab PO TID PRN 05/12/14 09/25/16 History 7.5-325] Metoprolol Tartrate [Lopressor] 25 mg PO DAILY 05/12/14 09/25/16 History Sertraline [Zoloft] 100 mg PO DAILY 05/12/14 09/25/16 History Mometasone Furoate [Mometasone 1 applic BOTH EARS DAILY PRN 07/21/16 09/25/16 History Furoate 0.1%] Multivitamins, Thera [Multivitamin 1 tab PO DAILY 07/21/16 09/25/16 History (formulary)] Allergies Allergy/AdvReac Type Severity Reaction Status Date / Time cephalexin [From Keflex] Allergy Rash/Hives Verified 09/25/16 15:31 Physical Exam Vitals: Vital Signs Temp Pulse Resp BP Pulse Ox 09/26/16 12:14 98.2 F 58 L 16 124/67 94 L 09/26/16 07:00 98.3 F 61 20 117/66 96 09/26/16 00:00 66 18 09/25/16 22:36 98.5 F 66 18 96/53 92 L 09/25/16 15:00 98.3 F 85 20 128/68 95 Intake and Output 09/25/16 09/26/16 09/26/16 22:59 06:59 14:59 Intake Total 490 Balance 490 Intake: Intake, IV Titration 250 Amount Sodium Chloride 0.9% 1, 250 000 ml @ 125 mls/hr IV . Q8H [facility] Rx#:[id number] Oral 240 Other: Voiding Method Toilet Toilet # Voids 2 Weight 106.594 kg - Constitutional General appearance: cooperative, no acute distress, obese - EENT Eyes: anicteric sclerae, EOMI, PERRLA, normal appearance ENT: hearing grossly normal, normal oropharynx - Neck Neck: no lymphadenopathy - Respiratory Respiratory: bilateral: CTA - Cardiovascular Rhythm: regular Heart sounds: normal: S1, S2 leg Peripheral Edema: bilateral: None - Gastrointestinal left abd PEG tube noted General gastrointestinal: normal bowel sounds, soft - Integumentary Integumentary: pale - Neurologic Neurologic: CNII-XII intact - Musculoskeletal Musculoskeletal: strength equal bilaterally - Psychiatric Psychiatric: A&O x's 3, appropriate affect, intact judgment & insight Results CBC & Chem 7: 09/25/16 16:12 09/25/16 16:12 Labs: Abnormal Lab Results - Last 24 Hours (Table) 09/25/16 09/25/16 09/25/16 Range/Units 16:12 16:12 16:12 WBC 21.4 H (3.8-10.6) k/uL RBC 3.96 L (4.30-5.90) m/uL Hgb 12.0 L (13.0-17.5) gm/dL Hct 37.9 L (39.0-53.0) % Neutrophils # 18.7 H (1.3-7.7) k/uL Lymphocytes # 0.9 L (1.0-4.8) k/uL Monocytes # 1.3 H (0-1.0) k/uL PT 12.2 H (9.0-12.0) sec Sodium 134 L (137-145) mmol/L Chloride 97 L (98-107) mmol/L Glucose 149 H (74-99) mg/dL Alkaline Phosphatase 309 H (38-126) U/L Total Protein 6.0 L (6.3-8.2) g/dL Albumin 2.9 L (3.5-5.0) g/dL Chest x-ray: report reviewed Thrombosis Risk Factor Assmnt - DVT/VTE Prophylaxis DVT/VTE Prophylaxis: Mechanical Prophylaxis ordered - Choose All That Apply Each Factor Represents 1 point: Obesity (BMI >25) Other Risk Factors: Yes Each Risk Factor Represents 2 Points: Age 61-74 years, Malignancy Other congenital or acquired thrombophilia - If yes, enter type in comment: No Thrombosis Risk Factor Assessment Total Risk Factor Score: 5 Thrombosis Risk Factor Assessment Level: High Risk Assessment and Plan (1) Dehydration Narrative/Plan: Awaiting Speech Therapy eval and recommendations for oral intake, clear liquids to tolerance for now Status: Acute (2) Metastatic adenocarcinoma Narrative/Plan: Port has been placed with intention for chemotherapy, plan is to start out patient. Pt and family informed of plan Status: Acute (3) Dysphagia Narrative/Plan: PEG placed to supplement nutrition, awaiting swallow eval as we encourage pt to continue oral intake as tolerated. Dietitian consulted for type of feeding and number of cans for nutritional needs Status: Acute (4) Odynophagia Narrative/Plan: PEG tube inserted. Status: Acute Plan: SCDs for DVT prophylaxis GI prophylaxis
[2016-09-27] MEDS: SODIUM CHLORIDE 0.9% 1,000 ML IV SCH ×4 (05:00→23:10)
[2016-09-27] MEDS: MULTIVITAMINS, THERA 1 EACH TAB PO SCH (08:25)
[2016-09-27] MEDS: METOPROLOL TARTRATE 25 MG TAB PO SCH (08:25)
[2016-09-27] MEDS: SERTRALINE 100 MG TAB PO SCH (08:25)
[2016-09-27] MEDS: GABAPENTIN 400 MG CAP PO SCH ×2 (08:25→21:12)
[2016-09-27] MEDS: PANTOPRAZOLE 40 MG/10 ML VIAL IVP SCH (08:25)
[2016-09-27] MEDS: HYDROcodone/APAP 7.5-325MG 1 EACH TAB PO PRN ×4 (08:31→23:10)
--- NOTE | 2016-09-27 09:48 | P.PN ---
Progress Note - Text Patient had the placement of PEG tube yesterday. Stable from that standpoint. No excessive abdominal pain. On examination he is afebrile and in no acute distress. Abdomen is soft with no significant tenderness. PEG tube is in place and intact. Her graft impression stable postop per. History of esophageal CA. Re Commendation : patient is to be started on tube feeding today.
--- NOTE | 2016-09-27 12:51 | P.PN ---
Subjective Principal diagnosis: Dehydration, due to dysphagia The patient to feel has been started. So far he is tolerating it well. He is having some soreness at the insertion site, which is tolerable Objective - Vital Signs Vital signs: Vital Signs Temp 97.7 F 09/27/16 07:00 Pulse 64 09/27/16 07:00 Resp 18 09/27/16 07:00 BP 121/71 09/27/16 07:00 Pulse Ox 96 09/27/16 07:00 Intake & Output 09/26/16 09/27/16 09/27/16 18:59 06:59 18:59 Intake Total 1900 1250 50 Output Total 3 Balance 1897 1250 50 Weight 106.594 kg 106.594 kg Intake: IV 1150 Intake, IV Titration 750 1250 Amount Sodium Chloride 0.9% 1, 750 1250 000 ml @ 125 mls/hr IV . Q8H [facility] Rx#:[id number] Tube Feeding 50 Output: Estimated Blood Loss 3 Other: Voiding Method Toilet Toilet Toilet # Voids 2 2 1 - Constitutional General appearance: Present: no acute distress - EENT Eyes: Present: EOMI, PERRLA ENT: Present: hearing grossly normal, normal oropharynx - Respiratory Respiratory: bilateral: CTA - Cardiovascular Rhythm: regular - Gastrointestinal Gastrointestinal Comment(s): PEG site appears clean General gastrointestinal: Present: normal bowel sounds, soft - Integumentary Integumentary: Present: normal - Neurologic Neurologic: Present: CNII-XII intact - Musculoskeletal Musculoskeletal: Present: strength equal bilaterally - Psychiatric Psychiatric: Present: A&O x's 3, appropriate affect - Labs CBC & Chem 7: 09/25/16 16:12 09/25/16 16:12 Assessment and Plan (1) Dysphagia Narrative/Plan: The patient is status post PEG placement. He has started to phase in his so far tolerating it well. Advanced tube feeds per surgery. Status: Acute (2) Dehydration Narrative/Plan: Clinically improved with IV hydration. As noted, tube feeds have also been started. Status: Acute Plan: Check labs
[2016-09-27] MEDS: ENOXAPARIN 40 MG/0.4 ML SYRINGE SQ SCH (14:06)
--- NOTE | 2016-09-27 15:08 | CONS ---
DATE OF CONSULTATION: REASON FOR ADMISSION: Odynophagia. 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 Patient has been losing weight. Patient was brought into the hospital for IV hydration. Thereafter, a discussion was made and a PEG tube placement was discussed. Patient also had a Mediport placed for palliative chemotherapy. The patient is status post PEG tube placement. Currently started on tube feeding. States that he has some tenderness at the site of the PEG tube insertion, however, denies having fevers, chills, nausea, vomiting, diarrhea, abdominal pain or chest pain. REVIEW OF SYSTEMS: Fourteen-point review of system was done; none pertinent other than what was mentioned above. Past medical history includes: 1. Prostate cancer, status post surgical resection and radiation. 2. Hypertension. 3. Osteoarthritis. 4. Umbilical hernia repair. 5. Prostate surgery. 6. Hernia repair. SOCIAL HISTORY: Former smoker. Denies alcohol or illicit drug use. FAMILY HISTORY: Not pertinent to the current admission. Home medications were reviewed on H&P. ALLERGIES: KEFLEX. PHYSICAL EXAM: VITALS: Temperature 97.4, heart rate 72, respiratory rate 17, blood pressure 130/70, saturating 96% on room air. GENERAL APPEARANCE: Alert and oriented x3. He is a pleasant gentleman. Neck is supple. No JVD. CHEST: A right-sided Med-a-Port is noted. S1, S2, regular rate and rhythm. No murmurs appreciated. LUNGS: Clear to auscultation. No rhonchi, wheezing or crackles. ABDOMEN: PEG tube insertion site is noted on the left henrry-abdomen, appears appropriate. No associated erythema. Bowel sounds are intact. LOWER EXTREMITIES: No edema noted. NEURO: No focal motor or sensory deficits noted. Laboratory data on day of admission was noted. ASSESSMENT AND PLAN: 1. Dysphagia and odynophagia secondary to metastatic, poorly differentiated cancer of the gastroesophageal origin. 2. History of prostate cancer. 3. Peripheral neuropathy. 4. Hypertension. 5. Reactive airway disease. PLAN: Continue ongoing care. Patient's vitals were stable. Once patient reaches target PEG tube intake could likely be discharged home with home care depending on the support system at home. Thank you for letting me participating in his care. Will follow the patient.
[2016-09-28] MEDS: HYDROcodone/APAP 7.5-325MG 1 EACH TAB PO PRN ×3 (05:54→21:28)
[2016-09-28] MEDS: METOPROLOL TARTRATE 25 MG TAB PO SCH (09:21)
[2016-09-28] MEDS: MULTIVITAMINS, THERA 1 EACH TAB PO SCH (09:21)
[2016-09-28] MEDS: SERTRALINE 100 MG TAB PO SCH (09:21)
[2016-09-28] MEDS: PANTOPRAZOLE 40 MG/10 ML VIAL IVP SCH (09:21)
[2016-09-28] MEDS: GABAPENTIN 400 MG CAP PO SCH ×2 (09:22→21:29)
[2016-09-28] MEDS: ENOXAPARIN 40 MG/0.4 ML SYRINGE SQ SCH (09:22)
[2016-09-28] MEDS: SODIUM CHLORIDE 0.9% 1,000 ML IV SCH ×3 (10:23→22:29)
--- NOTE | 2016-09-28 13:13 | P.PN ---
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 Patient has been losing weight. Patient was brought into the hospital for IV hydration. Thereafter, a discussion was made and a PEG tube placement was discussed. Patient also had a Mediport placed for palliative chemotherapy. The patient is status post PEG tube placement. Currently started on tube feeding. States that he has some tenderness at the site of the PEG tube insertion, however, denies having fevers, chills, nausea, vomiting, diarrhea, abdominal pain or chest pain. 09/28/2016 No fevers chills nausea vomiting chest pain reported Patient complains of pain at the PEG tube site insertion States he has some fullness during feeding has refused feeding this morning Due to the severe tenderness Objective - Vital Signs Vital signs: Vital Signs Temp 98.3 F 09/28/16 07:00 Pulse 67 09/28/16 07:00 Resp 16 09/28/16 07:00 BP 122/66 09/28/16 07:00 Pulse Ox 93 L 09/28/16 07:00 Intake & Output 09/27/16 09/28/16 09/28/16 18:59 06:59 18:59 Intake Total 300 540 Balance 300 540 Weight 106.594 kg 107 kg Intake: Oral 240 Tube Feeding 300 300 Other: Voiding Method Toilet Toilet Toilet # Voids 1 - Exam Physical exam Gen. appearance oriented 3 in no distress Neck is supple no JVD Lungs good air entry clear to auscultation no rhonchi or wheezing Heart S1-S2 heard regular rate and rhythm no murmurs appreciated Abdomen is soft nontender no organomegaly bowel sounds are intact site of PEG tube insertion appears appropriate slightly encroaching on the skin Placed a gauze which is improved his discomfort significantly Neurologically cranial nerves II-12 grossly intact no focal motor or sensory deficits noted Skin no abnormalities appreciated - Labs CBC & Chem 7: 09/25/16 16:12 09/25/16 16:12 Assessment and Plan Plan: #1 dysphagia and odynophagia status post PEG tube placement #2 poorly differentiated metastatic adenocarcinoma #3 history of prostate cancer #4 peripheral neuropathy #5 hypertension #6 reactive airway disease Plan Patient's pain is resolved Continue tube feeding patient can likely be discharged in the next 24 hours
--- NOTE | 2016-09-29 00:11 | P.PN ---
Subjective The patient did develop some bloating and mild nausea with increase in rate of the tube feeds. Tube feeds were held with the plan to resume at a slower rate, per surgery. He denied any overt fever or chills or actual vomiting. Objective - Vital Signs Vital signs: Vital Signs Temp 99.4 F 09/28/16 20:50 Pulse 75 09/28/16 20:50 Resp 16 09/28/16 20:50 BP 128/69 09/28/16 20:50 Pulse Ox 92 L 09/28/16 20:50 Intake & Output 09/28/16 09/28/16 09/29/16 06:59 18:59 06:59 Intake Total 540 350 Balance 540 350 Weight 107 kg Intake: Oral 240 Tube Feeding 300 350 Other: Voiding Method Toilet Toilet - Constitutional General appearance: Present: no acute distress - EENT Eyes: Present: PERRLA ENT: Present: hearing grossly normal, normal oropharynx - Respiratory Respiratory: bilateral: CTA - Cardiovascular Rhythm: regular Heart sounds: normal: S1, S2 - Gastrointestinal Gastrointestinal Comment(s): PEG site is clean General gastrointestinal: Present: normal bowel sounds, soft - Integumentary Integumentary: Present: normal - Neurologic Neurologic: Present: CNII-XII intact - Musculoskeletal Musculoskeletal: Present: strength equal bilaterally - Psychiatric Psychiatric: Present: A&O x's 3, appropriate affect - Labs CBC & Chem 7: 09/25/16 16:12 09/25/16 16:12 Assessment and Plan (1) Dysphagia Narrative/Plan: The patient is status post PEG tube. As noted, but it is being adjusted for tolerance. Defer to surgery for continued management. Status: Acute (2) Dehydration Narrative/Plan: Improved with IV hydration and PEG feed Status: Acute
[2016-09-29 05:54] LABS: CH 30.7; CHCM 31.7; HCT 36.1 % (39.0-53.0); HDW 2.44; HGB 11.3 gm/dL (13.0-17.5); MCH 30.6 pg (25.0-35.0); MCHC 31.4 g/dL (31.0-37.0); MCV 97.4 fL (80.0-100.0); Mean Platelet Volume 9.1; RDW 12.5 % (11.5-15.5); WBC 19.6 k/uL (3.8-10.6)
[2016-09-29 06:13] LABS: ALT 42 U/L (21-72); AST 47 U/L (17-59); Alkaline Phosphatase 296 U/L (38-126); Anion Gap 7 mmol/L; Blood Urea Nitrogen 12 mg/dL (9-20); Calcium 8.1 mg/dL (8.4-10.2); Carbon Dioxide 27 mmol/L (22-30); Chloride 103 mmol/L (98-107); Glucose 125 mg/dL (74-99); Non-African American GFR(MDRD) >60 (>60 ml/min/1.73 sqM); Potassium 4.1 mmol/L (3.5-5.1); Sodium 137 mmol/L (137-145); Total Bilirubin 0.5 mg/dL (0.2-1.3); Total Protein 4.7 g/dL (6.3-8.2)
[2016-09-29] MEDS: SODIUM CHLORIDE 0.9% 1,000 ML IV SCH ×2 (08:24→16:24)
[2016-09-29] MEDS: ENOXAPARIN 40 MG/0.4 ML SYRINGE SQ SCH (08:24)
[2016-09-29] MEDS: PANTOPRAZOLE 40 MG/10 ML VIAL IVP SCH (08:25)
[2016-09-29] MEDS: METOPROLOL TARTRATE 25 MG TAB PO SCH (08:25)
[2016-09-29] MEDS: MULTIVITAMINS, THERA 1 EACH TAB PO SCH (08:25)
[2016-09-29] MEDS: SERTRALINE 100 MG TAB PO SCH (08:25)
[2016-09-29] MEDS: GABAPENTIN 400 MG CAP PO SCH ×2 (08:25→21:02)
--- NOTE | 2016-09-29 14:58 | CDI ---
In responding to this query, please exercise your independent professional judgment. The [facility] Coding Staff and Clinical Documentation Specialists appreciate your assistance in clarifying documentation, maintaining compliance with coding guidelines, accurately documenting patients condition and capturing severity of illness. The fact that a question is asked does not imply that any particular answer is desired or expected. Communication forms are a method of clarifying documentation and are not made part of the Legal Health Record. Thank you in advance for your clarification. Last Revision, February 2015 Viviana Carver [address] [facility] [place] [address] Documentation Clarification Form Date: 09/29/2016 2:40:00 PM From: Anay Cele Admit Date: 09/25/2016 2:36:00 PM Patient Name: Eleuteiro Luke Visit Number: [id number] Discharge Date: Dr. Julio Lundberg Malnutrition has been documented in the consult on . History/Risk Factors: Metastatic Adenocarcinoma, Dysphagia, Odynophagia, Hypertension Clinical Indicators: Patient complains of progressive epigastric pain after meals resulting in nausea and some vomiting, inability to sustain any solids, only to take liquids. Nutrition intake poor. Labs: Albumin 4.7, Total Protein 2.3 Current BMI: 31.8 Insufficient energy intake: yes Weight Loss: 15 % BW IN 3 months Treatment: Dietary Consult: Yes PEG insertion with tube feeding per orders Lab monitoring: In your professional opinion, can you please clarify if these findings signify one of the following conditions? Mild Protein Malnutrition Mild Protein-Calorie Malnutrition Moderate Protein Malnutrition Moderate Protein-Calorie Malnutrition Severe Protein Malnutrition Severe Protein-Calorie Malnutrition Other condition, please specify Unable to determine Please document in your progress notes order to capture severity of illness and risk of mortality. Include clinical findings that support your diagnosis. FYI: Press F11 to launch patient chart. Place X here if this finding has no clinical significance, is not applicable or if you are not able to provide any additional documentation. MTDD
--- NOTE | 2016-09-29 15:34 | P.PN ---
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 Patient has been losing weight. Patient was brought into the hospital for IV hydration. Thereafter, a discussion was made and a PEG tube placement was discussed. Patient also had a Mediport placed for palliative chemotherapy. The patient is status post PEG tube placement. Currently started on tube feeding. States that he has some tenderness at the site of the PEG tube insertion, however, denies having fevers, chills, nausea, vomiting, diarrhea, abdominal pain or chest pain. 09/28/2016 No fevers chills nausea vomiting chest pain reported Patient complains of pain at the PEG tube site insertion States he has some fullness during feeding has refused feeding this morning Due to the severe tenderness 09/29/16 no additonal complaints repoted doing well tolerating peg feeds Objective - Vital Signs Vital signs: Vital Signs Temp 98.6 F 09/29/16 07:00 Pulse 75 09/29/16 08:00 Resp 16 09/29/16 08:00 BP 121/72 09/29/16 07:00 Pulse Ox 94 L 09/29/16 07:00 Intake & Output 09/28/16 09/29/16 09/29/16 18:59 06:59 18:59 Intake Total 350 Balance 350 Weight 109.5 kg 109.5 kg Intake: Tube Feeding 350 Other: Voiding Method Toilet Toilet Toilet # Voids 1 - Labs CBC & Chem 7: 09/29/16 05:45 09/29/16 05:45 Labs: Abnormal Lab Results - Last 24 Hours (Table) 09/29/16 09/29/16 Range/Units 05:45 05:45 WBC 19.6 H (3.8-10.6) k/uL RBC 3.70 L (4.30-5.90) m/uL Hgb 11.3 L (13.0-17.5) gm/dL Hct 36.1 L (39.0-53.0) % Glucose 125 H (74-99) mg/dL Calcium 8.1 L (8.4-10.2) mg/dL Alkaline Phosphatase 296 H (38-126) U/L Total Protein 4.7 L (6.3-8.2) g/dL Albumin 2.3 L (3.5-5.0) g/dL Assessment and Plan Plan: #1 dysphagia and odynophagia status post PEG tube placement #2 poorly differentiated metastatic adenocarcinoma #3 history of prostate cancer #4 peripheral neuropathy #5 hypertension #6 reactive airway disease Plan Patient's pain is resolved Continue tube feeding patient can likely be discharged in the next 24 hours No malnutrition PEG was placed for odynophagia
--- NOTE | 2016-09-29 17:51 | P.PN ---
Subjective Principal diagnosis: Dehydration secondary to dysphagia, odynophagia, metastatic GE junction adenocarcinoma Pt seen today in follow up, he is doing well, he is finding that if the feedings run over and hour or 2 then he feels bloated, he denies vomiting, diarrhea. His port is placed, he denies any unrealistic pain in the area, neck or chest swelling, SOB or cough, he is ambulating and wants to go home. Objective - Vital Signs Vital signs: Vital Signs Temp 98.6 F 09/29/16 07:00 Pulse 75 09/29/16 16:00 Resp 16 09/29/16 16:00 BP 121/72 09/29/16 07:00 Pulse Ox 94 L 09/29/16 07:00 Intake & Output 09/28/16 09/29/16 09/29/16 18:59 06:59 18:59 Intake Total 350 Balance 350 Weight 109.5 kg 109.5 kg Intake: Tube Feeding 350 Other: Voiding Method Toilet Toilet Toilet # Voids 1 - Constitutional General appearance: Present: average body habitus, cooperative, no acute distress - EENT ENT: Present: normal oropharynx - Respiratory Respiratory: bilateral: CTA - Cardiovascular Rhythm: regular Heart sounds: normal: S1, S2 - Gastrointestinal Gastrointestinal Comment(s): mild lower quadrant distension, no pain with palpation, PEG insertion site no redness or drainage General gastrointestinal: Present: normal bowel sounds - Integumentary Integumentary: Present: normal - Neurologic Neurologic: Present: CNII-XII intact - Musculoskeletal Musculoskeletal: Present: strength equal bilaterally - Psychiatric Psychiatric: Present: A&O x's 3, appropriate affect, intact judgment & insight - Labs CBC & Chem 7: 09/29/16 05:45 09/29/16 05:45 Labs: Abnormal Lab Results - Last 24 Hours (Table) 09/29/16 09/29/16 Range/Units 05:45 05:45 WBC 19.6 H (3.8-10.6) k/uL RBC 3.70 L (4.30-5.90) m/uL Hgb 11.3 L (13.0-17.5) gm/dL Hct 36.1 L (39.0-53.0) % Glucose 125 H (74-99) mg/dL Calcium 8.1 L (8.4-10.2) mg/dL Alkaline Phosphatase 296 H (38-126) U/L Total Protein 4.7 L (6.3-8.2) g/dL Albumin 2.3 L (3.5-5.0) g/dL Assessment and Plan (1) Dehydration Narrative/Plan: Improved with IV fluids, pt has PEG Status: Acute (2) Dysphagia Status: Acute (3) Metastatic adenocarcinoma Narrative/Plan: Port placed, treatment will begin in the office in the next week, pt will be contacted with appt time Status: Acute (4) Odynophagia Narrative/Plan: Secondary to GE junction mass, persistent, pt has no mechanical difficulties swallowing per Speech therapy with recommendation for pureed diet, encouraged pt to try and tolerate at least some liquids/very soft foods PRN Status: Acute Plan: Surgery cleared pt Awaiting home care and tube feeding to be delivered, pt should be discharged in AM.
[2016-09-29] MEDS: HYDROcodone/APAP 7.5-325MG 1 EACH TAB PO PRN (21:02)
[2016-09-30] MEDS: SODIUM CHLORIDE 0.9% 1,000 ML IV SCH ×2 (02:26→08:07)
[2016-09-30 08:05] VITALS: BP 115/54; PULSE 90; RESP 20; TEMP 97.5
[2016-09-30] MEDS: PANTOPRAZOLE 40 MG/10 ML VIAL IVP SCH (08:06)
[2016-09-30] MEDS: ENOXAPARIN 40 MG/0.4 ML SYRINGE SQ SCH (08:06)
[2016-09-30] MEDS: GABAPENTIN 400 MG CAP PO SCH (08:11)
[2016-09-30] MEDS: METOPROLOL TARTRATE 25 MG TAB PO SCH (08:11)
[2016-09-30] MEDS: SERTRALINE 100 MG TAB PO SCH (08:11)
[2016-09-30] MEDS: MULTIVITAMINS, THERA 1 EACH TAB PO SCH (08:11)
[2016-09-30] MEDS: HYDROcodone/APAP 7.5-325MG 1 EACH TAB PO PRN (08:15)
--- NOTE | 2016-09-30 08:49 | P.DS ---
Providers Date of admission: 09/25/16 14:36 Expected date of discharge: 09/30/16 Attending physician: Srinivas Millan Consults: 09/25/16 15:47 Consult Physician Routine Consulting Provider: Adam Goldberg Consult Reason/Comments: PEG or J-tube placement and infusaport placement Do you want consulting provider notified?: Already Contacted 09/26/16 16:09 Consult Physician Routine Consulting Provider: Kris Her Consult Reason/Comments: medical management Do you want consulting provider notified?: Yes Primary care physician: Kris Her - Discharge Diagnosis(es) (1) Dehydration Current Visit: Yes Status: Acute Priority: High (2) Dysphagia Current Visit: Yes Status: Acute Priority: High (3) Metastatic adenocarcinoma Current Visit: Yes Status: Acute Priority: High (4) Odynophagia Current Visit: Yes Status: Acute Priority: High Hospital Course: Pt admitted from office for dehydration and weakness. He was unable to tolerate oral intake due to dysphagia and odynophagia. Pt recently diagnosed with metastatic GE junction adenocarcinoma. Pt and family had discussed palliative treatment so pt was admitted for PEG tube and port placement. Dr. Goldberg performed both procedures. Pt is near feeding goal. When seen today he is anxious to go home. He still has mild abd fullness post feeding but he denies nausea, vomiting, cough or diarrhea, he is fully ambulatory independently. Pertinent Studies: Swallow evaluation-no mechanical dysfunction Procedures: Port placement PEG tube placement Patient Condition at Discharge: Stable Plan - Discharge Summary New Discharge Prescriptions: No Action Sertraline [Zoloft] 100 mg PO DAILY Metoprolol Tartrate [Lopressor] 25 mg PO DAILY HYDROcodone/APAP 7.5-325MG [[place] 7.5-325] 1 tab PO TID PRN PRN Reason: Pain Gabapentin [Neurontin] 400 mg PO BID Amitriptyline HCl [Elavil] 25 mg PO HS PRN PRN Reason: anxiety/sleep Multivitamins, Thera [Multivitamin (formulary)] 1 tab PO DAILY Mometasone Furoate [Mometasone Furoate 0.1%] 1 applic BOTH EARS DAILY PRN PRN Reason: itchy ears Discharge Medication List Amitriptyline HCl [Elavil] 25 mg PO HS PRN 05/12/14 [History] Gabapentin [Neurontin] 400 mg PO BID 05/12/14 [History] HYDROcodone/APAP 7.5-325MG [[place] 7.5-325] 1 tab PO TID PRN 05/12/14 [History] Metoprolol Tartrate [Lopressor] 25 mg PO DAILY 05/12/14 [History] Sertraline [Zoloft] 100 mg PO DAILY 05/12/14 [History] Mometasone Furoate [Mometasone Furoate 0.1%] 1 applic BOTH EARS DAILY PRN [History] Multivitamins, Thera [Multivitamin (formulary)] 1 tab PO DAILY 07/21/16 [History ] Follow up Appointment(s)/Referral(s): [facility] Visiting Nurse, [NON-STAFF] - 1 Week Srinivas Millan MD [STAFF PHYSICIAN] - 1 Week (Staff will call pt with appt date and time for chemotherapy) Activity/Diet/Wound Care/Special Instructions: Activity as tolerated PEG tube feeding. 5 cans a day, bolus feed, flush with 50cc water before and after feedings. Sips of water, ice chips, very soft foods/liquids orally to tolerance Discharge Disposition: HOME WITH HOME HEALTH SERVICES
[2016-09-30 11:21] VITALS: BMI 31.7
--- NOTE | 2016-09-30 11:35 | CDI ---
In responding to this query, please exercise your independent professional judgment. The [facility] Coding Staff and Clinical Documentation Specialists appreciate your assistance in clarifying documentation, maintaining compliance with coding guidelines, accurately documenting patients condition and capturing severity of illness. The fact that a question is asked does not imply that any particular answer is desired or expected. Communication forms are a method of clarifying documentation and are not made part of the Legal Health Record. Thank you in advance for your clarification. Last Revision, February 2015 Viviana Carver [address] [facility] [place] [address] Documentation Clarification Form Date: 09/29/2016 2:40:00 PM From: Anay Oakley Admit Date: 09/25/2016 2:36:00 PM Patient Name: Eleuterio Luke Visit Number: [id number] Discharge Date: Dr. Julio Lundberg Malnutrition has been documented in the consult on History/Risk Factors: Metastatic Adenocarcinoma, Dysphagia, Odynophagia, Hypertension Clinical Indicators: Patient complains of progressive epigastric pain after meals resulting in nausea and some vomiting, inability to sustain any solids, only to take liquids. Nutrition, intake poor. Labs: Albumin 4.7, Total Protein 2.3 Current BMI: 31.8 Insufficient energy intake: yes Weight Loss: 15 % BW IN 3 months (severe) Treatment: Dietary Consult: Yes PEG insertion with tube feeding per orders Lab monitoring: In your professional opinion, can you please clarify if these findings signify one of the following conditions? Mild Protein Malnutrition Mild Protein-Calorie Malnutrition Moderate Protein Malnutrition Moderate Protein-Calorie Malnutrition Severe Protein Malnutrition Severe Protein-Calorie Malnutrition Other condition, please specify Unable to determine Please document in your progress notes order to capture severity of illness and risk of mortality. Include clinical findings that support your diagnosis. FYI: Press F11 to launch patient chart. __x__ Place X here if this finding has no clinical significance, is not applicable or if you are not able to provide any additional documentation. MTDD
--- NOTE | 2016-09-30 17:15 | P.PN ---
Subjective Date of service 09/30/2016. Progress note being dictated for Dr. Boudreaux. Interval history: This a 71-year-old gentleman admitted with esophageal CA with metastatic adenocarcinoma, dehydration, dysphagia and odynophagia, status post PEG tube placement and multiple other medical issues. Tube feeds have advanced to goal, tolerating with minimal to no residuals. Patient also had a Mediport placed for palliative chemotherapy. Denies chest pain, palpitations or increasing shortness of breath. Patient eager for discharge home. Afebrile, WBC improving down to 19.6. Objective - Vital Signs Vital signs: Vital Signs Temp 97.5 F L 09/30/16 07:00 Pulse 90 09/30/16 08:00 Resp 20 09/30/16 08:00 BP 115/54 09/30/16 07:00 Pulse Ox 95 09/30/16 07:00 Intake & Output 09/29/16 09/30/16 09/30/16 18:59 06:59 18:59 Weight 109.5 kg 109.13 kg 109.13 kg Other: Voiding Method Toilet Toilet Toilet # Voids 1 - Exam PHYSICAL EXAM: VITAL SIGNS: As above GENERAL: [Sitting up in bed, no acute distress] HEENT: [Pupils equal conjunctiva normal.] NECK: [Supple, no JVD] RESPIRATORY EFFORT:[ Normal] LUNGS: [Diminished, no wheezes rhonchi or crackles.] CARDIOVASCULAR[ regular S1 and S2, no murmurs rubs or gallops, no edema] GI: [Abdomen soft, status post PEG tube placement, minimal tenderness,positive bowel sounds.] PSYCH: [Alert and oriented -3, mood and affect normal.] NEURO: [No focal deficits] - Labs CBC & Chem 7: 09/29/16 05:45 09/29/16 05:45 Assessment and Plan Plan: #1 dysphagia and odynophagia status post PEG tube placement #2 poorly differentiated metastatic adenocarcinoma #3 history of prostate cancer #4 peripheral neuropathy #5 hypertension #6 reactive airway disease Plan: Continue on current medication regime ,monitoring and symptomatic treatment. As mentioned above palliative treatment with placement of both port and PEG tube. Maintain aspiration precautions. Discharge planning in progress as per oncology for today. Follow-up with PCP in 3 days. Prognosis guarded, given multiple complex medical issues. The impression and plan of care has been dictated as directed. : I performed a H&P examination of this patient and discussed the same with the dictator. I agree with the dictator's note. Any additional findings/opinions/ etc. will be noted.
== END 2016-09-30 11:15 | disposition home health service (06) | DRG 641 ==
LOC: 5ONC 14:36
PROVIDERS: ADMIT Internal Medicine Hematology & Oncology; ATTEND Internal Medicine Hematology & Oncology
PROC: 02HV33Z Insertion of Infusion Device into Superior Vena Cava, Percutaneous Approach (ICD-10-PCS; 2016-09-26)
PROC: 3E0G76Z Introduction of Nutritional Substance into Upper GI, Via Natural or Artificial Opening (ICD-10-PCS; 2016-09-26)
PROC: 0JH63WZ Insertion of Totally Implantable Vascular Access Device into Chest Subcutaneous Tissue and Fascia, Percutaneous Approach (ICD-10-PCS; principal; 2016-09-26 07:30)
PROC: 0DH63UZ Insertion of Feeding Device into Stomach, Percutaneous Approach (ICD-10-PCS; 2016-09-26 07:30)
DX: E86.0 Dehydration (principal); C78.7 Secondary malignant neoplasm of liver and intrahepatic bile duct; G62.9 Polyneuropathy, unspecified; C16.0 Malignant neoplasm of cardia; R13.10 Dysphagia, unspecified; Z43.1 Encounter for attention to gastrostomy; E44.1 Mild protein-calorie malnutrition; I10 Essential (primary) hypertension; G89.29 Other chronic pain; R47.02 Dysphasia; M19.90 Unspecified osteoarthritis, unspecified site; M54.9 Dorsalgia, unspecified; F32.9 Major depressive disorder, single episode, unspecified; R53.1 Weakness; R32 Unspecified urinary incontinence; D72.829 Elevated white blood cell count, unspecified; J45.909 Unspecified asthma, uncomplicated; I71.4 Abdominal aortic aneurysm, without rupture; Z86.010 Personal history of colon polyps; Z68.31 Body mass index [BMI] 31.0-31.9, adult; Z82.3 Family history of stroke; Z90.79 Acquired absence of other genital organ(s); Z79.891 Long term (current) use of opiate analgesic; Z71.3 Dietary counseling and surveillance; Z87.19 Personal history of other diseases of the digestive system; Z92.3 Personal history of irradiation; Z88.1 Allergy status to other antibiotic agents; Z87.891 Personal history of nicotine dependence; Z79.899 Other long term (current) drug therapy; Z85.46 Personal history of malignant neoplasm of prostate
CPT/HCPCS: 43246; 77001; 80053; 85025; 85027; 85610

== ENCOUNTER 2016-11-28 10:09 | Day surgery (SDC) | payer MEDICARE, BC ==
[2016-11-27 14:11] VITALS: BMI 30.4
[2016-11-28 10:36] VITALS: TEMP 97.9
[2016-11-28 11:02] LABS: Glucose,Whole Blood 211 mg/dL (75-99)
[2016-11-28] MEDS ORDERED: PROPOFOL 10 MG/ML 20 ML VIAL IV ONE (11:11)
[2016-11-28] MEDS ORDERED: LIDOCAINE 1% INJ 10MG/ML (20 ML MDV) ONE (11:11)
--- NOTE | 2016-11-28 11:41 | P.PCN ---
Date of Procedure: 11/28/16 Preoperative Diagnosis: Postoperative Diagnosis: Procedure(s) Performed: PREOPERATIVE DIAGNOSIS: Malnutrition, malfunctioning gastrostomy tube POSTOPERATIVE DIAGNOSIS: Same PROCEDURE: EGD with PEG tube placement replacement SURGEON: Ashlyn EBL: Minimal ANESTHESIA: Sedation COMPLICATIONS: None OPERATIVE PROCEDURE: The patient was placed in the supine position on the endoscopy table. The patient was sedated per anesthesia that time. The Olympus gastroscope was inserted into the oropharynx and passed under direct visualization to the region of the duodenum. No obstruction was seen. The pylorus was widely patent. The stomach was carefully inspected. The stomach was fully insufflated with air. The previous gastrostomy site was able to be identified the body of the stomach however the hub of the PEG catheter had pulled into the subcutaneous tissues. The PEG tube was removed without difficulty and one piece. Following that a 20-Greek Ponsky replacement tube was readvanced into the stomach. The bolster was tightened down to 5 cm. The previously identified esophageal cancer appeared much improved. DISPOSITION: Stable to recovery room Implants: Indications for Procedure: Operative Findings: Description of Procedure:
[2016-11-28 11:59] VITALS: BP 129/60; PULSE 73; RESP 18
== END 2016-11-28 12:09 | disposition home or self-care (01) ==
LOC: ORWHC2ENDO 10:09
PROVIDERS: ATTEND Surgery
DX: K94.23 Gastrostomy malfunction (principal); I10 Essential (primary) hypertension; E46 Unspecified protein-calorie malnutrition; Z88.1 Allergy status to other antibiotic agents; Z79.899 Other long term (current) drug therapy
CPT/HCPCS: 43246; J2001; J2704

== ENCOUNTER 2016-12-17 09:51 | Emergency (ER) | payer MEDICARE, BC ==
[2016-12-17] MEDS ORDERED: METOCLOPRAMIDE 5 MG/ML 2 ML VIAL IVP STA (10:18)
[2016-12-17] MEDS ORDERED: SODIUM CHLORIDE 0.9% 1,000 ML IV STA (10:18)
[2016-12-17] MEDS ORDERED: HYDROmorphone 1 MG/ML 1 ML SYRINGE IVP STA ×2 (10:18→13:06)
--- NOTE | 2016-12-17 10:26 | ED ---
Abdominal Pain HPI - General Chief Complaint: Abdominal Pain Stated Complaint: RT SIDE ABDOMINAL PAIN Time Seen by Provider: 12/17/16 10:04 Source: patient, RN notes reviewed, old records reviewed Mode of arrival: ambulatory Limitations: no limitations - History of Present Illness Initial Comments: This is a pleasant 71-year-old male with a history of gastric cancer presenting to emergency department with increased right-sided abdominal pain for the past 4 days. Patient reports that occasionally radiates towards his back and right flank. Patient states that he was supposed to have a chemo treatment today but then was encouraged to come to the emergency department. Patient also is currently tolerating oral intake the patient also has a PEG tube in place. He does receive nutrition through that as well. Patient denies any urinary symptoms. Denies any abnormal bowel movements. He did have a bowel movement earlier today. No blood noted. States that he occasionally feels nauseated. He is unsure if he still has a gallbladder or appendix. He does report multiple hernia surgeries. Patient states no noted fevers or chills. - Related Data Home Medications Medication Instructions Recorded Confirmed Amitriptyline HCl [Elavil] 25 mg PO HS PRN 05/12/14 12/17/16 Gabapentin [Neurontin] 400 mg PO BID 05/12/14 12/17/16 HYDROcodone/APAP 7.5-325MG [[place] 1 tab PO TID PRN 05/12/14 12/17/16 7.5-325] Metoprolol Tartrate [Lopressor] 25 mg PO DAILY 05/12/14 12/17/16 Sertraline [Zoloft] 100 mg PO DAILY 05/12/14 12/17/16 Mometasone Furoate [Mometasone 1 applic BOTH EARS DAILY PRN 07/21/16 12/17/16 Furoate 0.1%] Multivitamins, Thera [Multivitamin 1 tab PO DAILY 07/21/16 12/17/16 (formulary)] Previous Rx's Medication Instructions Recorded Ciprofloxacin HCl [Cipro] 500 mg PO Q12HR 7 Days 12/17/16 HYDROcodone/APAP 10-325MG [[place] 1 tab PO Q6H PRN #20 tab 12/17/16 10-325] Allergies Allergy/AdvReac Type Severity Reaction Status Date / Time cephalexin [From Keflex] Allergy Rash/Hives Verified 12/17/16 10:11 Review of Systems ROS Statement: Those systems with pertinent positive or pertinent negative responses have been documented in the HPI. ROS Other: All systems not noted in ROS Statement are negative. Past Medical History Past Medical History: Cancer, Hypertension, Osteoarthritis (OA) Additional Past Medical History / Comment(s): CHRONIC BACK PAIN, Hx prostate cancer 1995 HAD SX And radiation-pt incont of urine wears a pad.hepatitis as child. aaa pt unsure of size, "borderline dm- no meds and does'nt check blood sugars. "recently dx stomach ca and mets to liver currently receiving chemotherapy History of Any Multi-Drug Resistant Organisms: None Reported Past Surgical History: Hernia Repair, Prostate Surgery Additional Past Surgical History / Comment(s): UMBILICAL AND INGUINAL HERNIA, surgery for nose bleeds, egd w/ bx, liver bx, prostatectomy Past Anesthesia/Blood Transfusion Reactions: No Reported Reaction Past Psychological History: Anxiety, Depression Smoking Status: Former smoker Past Alcohol Use History: None Reported Past Drug Use History: None Reported - Past Family History Mother Family Medical History: CVA/TIA Additional Family Medical History / Comment(s): mom from a stroke when pt was 4 years old. Father Family Medical History: No Reported History General Exam - General Exam Comments Initial Comments: This is a 71-year-old male. Patient does not appear to be in any acute distress. Limitations: no limitations General appearance: alert, in no apparent distress Head exam: Present: atraumatic, normocephalic, normal inspection Eye exam: Present: normal appearance, PERRL, EOMI. Absent: scleral icterus, conjunctival injection, periorbital swelling ENT exam: Present: normal exam, mucous membranes moist Neck exam: Present: normal inspection. Absent: tenderness, meningismus, lymphadenopathy Respiratory exam: Present: normal lung sounds bilaterally. Absent: respiratory distress, wheezes, rales, rhonchi, stridor Cardiovascular Exam: Present: regular rate, normal rhythm, normal heart sounds. Absent: systolic murmur, diastolic murmur, rubs, gallop, clicks GI/Abdominal exam: Present: soft, tenderness (Right lower quadrant and right upper quadrant tenderness.), normal bowel sounds. Absent: distended, guarding, rebound, rigid Extremities exam: Present: normal inspection, full ROM, normal capillary refill. Absent: tenderness, pedal edema, joint swelling, calf tenderness Back exam: Present: normal inspection, CVA tenderness (R) Neurological exam: Present: alert, oriented X3, CN II-XII intact Psychiatric exam: Present: normal affect, normal mood Skin exam: Present: warm, dry, intact, normal color. Absent: rash Course Vital Signs 12/17/16 12/17/16 12/17/16 09:52 11:29 13:39 Temperature 98.5 F Pulse Rate 70 64 65 Respiratory 18 18 18 Rate Blood Pressure 110/55 108/57 108/57 O2 Sat by Pulse 97 95 94 L Oximetry - Reevaluation(s) Reevaluation #1: 12/17/16 13:44 Patient was reevaluated by myself and Dr. Clarke. Patient is complaining of continued abdominal pain. Patient's lab work was reviewed negative for any significant abnormalities. CT abdomen and pelvis was performed. Patient has evidence of aortic aneurysm. No evidence of perforation. There is also evidence of aortic ulcer. Dr. Dobson discussed this with Dr. Winter the vascular surgeon. At that time he said there is nothing to besides the continuing to monitor it. Reevaluation #2: 12/17/16 14:05 She was reevaluated. He is resting comfortably in bed. Patient was offered admission but states that he would like to go home. Patient relates that he did miss his chemo claiming he plans to go up there to have that rescheduled. Medical Decision Making - Medical Decision Making 8-year-old male with history of gastric cancer presents emergency department increased right-sided abdominal pain for the past 4 days. Patient was given IV pain medication lab work reviewed. Evidence of a urinary tract infection. Culture obtained. Patient started on Levaquin. Patient's did have some mild leukocytosis. Patient CT abdomen and pelvis was performed. Evidence of metastases of the liver. Patient was unaware of this. Patient CT also showed evidence of an abdominal aortic aneurysm measuring 4.8 cm. Also questionable aortic ulcer. At that time we discussed the case with Dr. Winter vascular surgeon on-call. He reports that he just needs close follow-up with his primary care provider but there is no intervention that will be needed to be done at this time. Patient was informed about this. Discussed close follow-up She was offered admission for pain control and further evaluation. Patient elects that he needs to go home. He does have caregivers at home will help him. Patient will be discharged with Cipro, and further pain medication. Discussed she is follow-up with his primary care provider or oncologist regards to appropriate pain management. agrees to treatment plan will comply. Return parameters were discussed. - Lab Data Result diagrams: 12/17/16 10:07 12/17/16 10:07 Lab Results 12/17/16 12/17/16 12/17/16 Range/Units 10:07 10:07 10:07 WBC 12.6 H (3.8-10.6) k/uL RBC 3.83 L (4.30-5.90) m/uL Hgb 11.8 L (13.0-17.5) gm/dL Hct 36.2 L (39.0-53.0) % MCV 94.5 (80.0-100.0) fL MCH 31.0 (25.0-35.0) pg MCHC 32.8 (31.0-37.0) g/dL RDW 18.3 H (11.5-15.5) % Plt Count 208 (150-450) k/uL Neutrophils % 90 % Lymphocytes % 5 % Monocytes % 4 % Eosinophils % 0 % Basophils % 0 % Neutrophils # 11.3 H (1.3-7.7) k/uL Lymphocytes # 0.6 L (1.0-4.8) k/uL Monocytes # 0.5 (0-1.0) k/uL Eosinophils # 0.0 (0-0.7) k/uL Basophils # 0.0 (0-0.2) k/uL Anisocytosis Slight Macrocytosis Slight PT (9.0-12.0) sec INR (<1.2) APTT (22.0-30.0) sec Sodium 131 L (137-145) mmol/L Potassium 4.7 (3.5-5.1) mmol/L Chloride 95 L (98-107) mmol/L Carbon Dioxide 27 (22-30) mmol/L Anion Gap 9 mmol/L BUN 13 (9-20) mg/dL Creatinine 0.64 L (0.66-1.25) mg/dL Est GFR (MDRD) Af Amer >60 (>60 ml/min/1.73 sqM) Est GFR (MDRD) Non-Af >60 (>60 ml/min/1.73 sqM) Glucose 270 H (74-99) mg/dL Plasma Lactic Acid [place] (0.7-2.0) mmol/L Calcium 8.9 (8.4-10.2) mg/dL Total Bilirubin 0.4 (0.2-1.3) mg/dL AST 31 (17-59) U/L ALT 45 (21-72) U/L Alkaline Phosphatase 200 H (38-126) U/L Total Protein 6.2 L (6.3-8.2) g/dL Albumin 2.9 L (3.5-5.0) g/dL Amylase <30 L (30-110) U/L Lipase 184 (23-300) U/L Urine Color Dark Yellow Urine Appearance Cloudy (Clear) Urine pH 5.5 (5.0-8.0) Ur Specific [place] 1.023 (1.001-1.035) Urine Protein 1+ H (Negative) Urine Glucose (UA) Negative (Negative) Urine Ketones Negative (Negative) Urine Blood Negative (Negative) Urine Nitrite Negative (Negative) Urine Bilirubin Negative (Negative) Urine Urobilinogen 2.0 (<2.0) mg/dL Ur Leukocyte Esterase Moderate H (Negative) Urine WBC 37 H (0-5) /hpf Urine Bacteria Rare H (None) /hpf Urine Mucus Many H (None) /hpf 12/17/16 12/17/16 Range/Units 10:07 10:07 WBC (3.8-10.6) k/uL RBC (4.30-5.90) m/uL Hgb (13.0-17.5) gm/dL Hct (39.0-53.0) % MCV (80.0-100.0) fL MCH (25.0-35.0) pg MCHC (31.0-37.0) g/dL RDW (11.5-15.5) % Plt Count (150-450) k/uL Neutrophils % % Lymphocytes % % Monocytes % % Eosinophils % % Basophils % % Neutrophils # (1.3-7.7) k/uL Lymphocytes # (1.0-4.8) k/uL Monocytes # (0-1.0) k/uL Eosinophils # (0-0.7) k/uL Basophils # (0-0.2) k/uL Anisocytosis Macrocytosis PT 11.2 (9.0-12.0) sec INR 1.1 (<1.2) APTT 28.1 (22.0-30.0) sec Sodium (137-145) mmol/L Potassium (3.5-5.1) mmol/L Chloride (98-107) mmol/L Carbon Dioxide (22-30) mmol/L Anion Gap mmol/L BUN (9-20) mg/dL Creatinine (0.66-1.25) mg/dL Est GFR (MDRD) Af Amer (>60 ml/min/1.73 sqM) Est GFR (MDRD) Non-Af (>60 ml/min/1.73 sqM) Glucose (74-99) mg/dL Plasma Lactic Acid [place] 1.8 (0.7-2.0) mmol/L Calcium (8.4-10.2) mg/dL Total Bilirubin (0.2-1.3) mg/dL AST (17-59) U/L ALT (21-72) U/L Alkaline Phosphatase (38-126) U/L Total Protein (6.3-8.2) g/dL Albumin (3.5-5.0) g/dL Amylase (30-110) U/L Lipase (23-300) U/L Urine Color Urine Appearance (Clear) Urine pH (5.0-8.0) Ur Specific [place] (1.001-1.035) Urine Protein (Negative) Urine Glucose (UA) (Negative) Urine Ketones (Negative) Urine Blood (Negative) Urine Nitrite (Negative) Urine Bilirubin (Negative) Urine Urobilinogen (<2.0) mg/dL Ur Leukocyte Esterase (Negative) Urine WBC (0-5) /hpf Urine Bacteria (None) /hpf Urine Mucus (None) /hpf - Radiology Data Radiology results: report reviewed Abdominal aortic aneurysm is again noted measuring 4.8 cm in the greatest transverse dimension. Suggestion of ulcer associated with a near he small dilation. Remove the aorta measures 4.7 cm. Heart size is stable. Coronary artery calcifications. Multiple hypodensities again noted in the liver with him during size. They are to numerous to count. Overall impression metastatic disease to the liver, postoperative changes. Aortic aneurysm within the abdomen and chest suspecting aortic ulcer. Probable postop seroma. There is a low density fluid collection present along the scar in as on prior exam compatible with a seroma within the subcu fat. Measuring 9 cm x 4 cm x 6 cm. Disposition Clinical Impression: UTI (urinary tract infection), Liver metastases, Abdominal aortic aneurysm Disposition: HOME SELF-CARE Condition: Good Instructions: Urinary Tract Infection in Men (ED), Abdominal Aortic Aneurysm ( DC) Additional Instructions: Patient advised to follow up promptly with your primary care physician. Return to the emergency department if any alarming signs or symptoms occur. Take the antibiotics as prescribed. Return to the emergency department if any alarming signs or symptoms occur. Prescriptions: Ciprofloxacin HCl [Cipro] 500 mg PO Q12HR 7 Days HYDROcodone/APAP 10-325MG [[place] 10-325] 1 tab PO Q6H PRN #20 tab PRN Reason: Pain Referrals: Kris Her MD [Primary Care Provider] - 1-2 days Time of Disposition: 14:18
[2016-12-17] MEDS ORDERED: SODIUM CHLORIDE 0.9% 1,000 ML IV SCH (10:30)
[2016-12-17] MEDS: diphenhydrAMINE 50 MG/ML 1 ML VIAL IVP STA ×2 (10:36→10:42)
[2016-12-17 11:08] LABS: Anisocytosis Slight; Basophils % (A) 0 %; CH 30.4; CHCM 32.3; Eosinophils % (A) 0 %; HCT 36.2 % (39.0-53.0); HDW 2.87; HGB 11.8 gm/dL (13.0-17.5); Luc # (Auto) 0.18; Luc % (Auto) 1; Lymphocytes # (A) 0.6 k/uL (1.0-4.8); Lymphocytes % (A) 5 %; MCHC 32.8 g/dL (31.0-37.0); MCV 94.5 fL (80.0-100.0); Macrocytosis Slight; Mean Platelet Volume 8.4; Monocytes # (A) 0.5 k/uL (0-1.0); Monocytes % (A) 4 %; Neutrophils # (A) 11.3 k/uL (1.3-7.7); Neutrophils % (A) 90 %; RBC 3.83 m/uL (4.30-5.90); RDW 18.3 % (11.5-15.5); WBC 12.6 k/uL (3.8-10.6); WBC (Perox) 12.88
[2016-12-17 11:11] LABS: Appearance,Urine Cloudy (Clear); Bacteria,Urine Rare /hpf; Bilirubin,Urine Negative (Negative); Glucose,Urine (UA) Negative (Negative); Ketones,Urine Negative (Negative); Leukocyte Esterase,Urine Moderate (Negative); Mucus,Urine Many /hpf; Nitrite,Urine Negative (Negative); PH, Urine 5.5 (5.0-8.0); Particle Count 17695; Protein,Urine 1+ (Negative); Specific Gravity,Urine 1.023 (1.001-1.035); UA Billing (MACRO vs. MICRO) MICRO; WBC,Urine 37 /hpf (0-5)
[2016-12-17] MEDS ORDERED: RX INFO: IV CONTRAST WAS GIVEN 1 EACH MISC MISCELLANE PRN (11:28)
[2016-12-17 11:31] LABS: ALT 45 U/L (21-72); AST 31 U/L (17-59); Alkaline Phosphatase 200 U/L (38-126); Amylase <30 U/L (30-110); Anion Gap 9 mmol/L; Blood Urea Nitrogen 13 mg/dL (9-20); Calcium 8.9 mg/dL (8.4-10.2); Carbon Dioxide 27 mmol/L (22-30); Chloride 95 mmol/L (98-107); Glucose 270 mg/dL (74-99); Non-African American GFR(MDRD) >60 (>60 ml/min/1.73 sqM); Potassium 4.7 mmol/L (3.5-5.1); Sodium 131 mmol/L (137-145); Total Bilirubin 0.4 mg/dL (0.2-1.3); Total Protein 6.2 g/dL (6.3-8.2)
[2016-12-17 11:49] LABS: INR 1.1 (<1.2); Partial Thromboplastin Time 28.1 sec (22.0-30.0); Prothrombin Time 11.2 sec (9.0-12.0)
--- NOTE | 2016-12-17 12:52 | CT ---
EXAMINATION TYPE: CT abdomen pelvis w con DATE OF EXAM: 12/17/2016 COMPARISON: Prior CT abdomen pelvis 09/03/2016 HISTORY: Right side abdominal pain for past [address] DLP: 1523.4 mGycm Automated exposure control for dose reduction was used. TECHNIQUE: Helical acquisition of images from the lung bases through the pelvis have been completed. CONTRAST: Performed without Oral Contrast and with IV Contrast, patient injected with 100 mL of Omnipaque 300. FINDINGS: LUNG BASES: There are calcified right hilar nodes. Calcified granuloma present in the right lower lob e. AORTA: Abdominal aortic aneurysm is again noted measuring approximately 4.8 cm in greatest transvers e dimension. There is suggestion of an ulcer associated with the aneurysmal dilation. Root of the aor ta measures 4.7 cm. Heart size is stable. There are coronary artery calcifications. LIVER/GB: Multiple hypodensities are again noted within the liver of varying sizes, there are too num erous to count lesions. Gallbladder is mildly distended. PANCREAS: No significant abnormality is seen. SPLEEN: Multiple calcifications compatible with old granulomatous disease. ADRENALS: No significant abnormality is seen. KIDNEYS: Bilateral renal cysts are present as on previous exam, some calcification present within the wall of the cyst on the left at the upper pole. Nonobstructive renal calculus at the lower pole of l eft kidney is stable. No ureteral calcifications. REPRODUCTIVE ORGANS: Suspect post prostatectomy change. BOWEL: Gastric feeding tube is present. Suspect some thickening at the gastroesophageal junction. FREE AIR: No Free Air visible. ASCITES: None visible. PELVIC ADENOPATHY: None visualized. RETROPERITONEAL ADENOPATHY: No Retroperitoneal Adenopathy visible. URINARY BLADDER: Thickened wall similar to prior exam. Low dense fluid collection present along the scar as on prior exam compatible with a seroma in the padilla bcutaneous fat anteriorly along the inferior aspect of the abdomen measuring approximately 9 cm x 4 c m x 6 cm, correlate to exclude infection. OSSEOUS STRUCTURES: Arthropathy again noted within the hips. Degenerative disc changes in the visual ized spine.. IMPRESSION: METASTATIC DISEASE TO THE LIVER. POSTOP CHANGES. AORTIC ANEURYSM WITHIN THE ABDOMEN AND CHEST, SUSPEC T AORTIC ULCER. PROBABLE POSTOP SEROMA. ADDITIONAL FINDINGS ABOVE.
[2016-12-17] MEDS ORDERED: LEVOFLOXACIN 750MG-D5W PMX 750 MG in DEXTROSE/WATER 1 150ML.BAG IVPB STA (13:13)
[2016-12-17] MEDS ORDERED: MORPHINE SULFATE 4 MG/ML SYRINGE IVP STA (13:40)
[2016-12-17 14:58] VITALS: BP 119/60; PULSE 88; RESP 17; TEMP 98.3
== END 2016-12-17 15:05 | disposition home or self-care (01) ==
LOC: EC 09:51
DX: N39.0 Urinary tract infection, site not specified (principal); I71.4 Abdominal aortic aneurysm, without rupture; C16.9 Malignant neoplasm of stomach, unspecified; C78.7 Secondary malignant neoplasm of liver and intrahepatic bile duct; R11.0 Nausea; I10 Essential (primary) hypertension; M19.90 Unspecified osteoarthritis, unspecified site; F32.9 Major depressive disorder, single episode, unspecified; F41.9 Anxiety disorder, unspecified; Z87.891 Personal history of nicotine dependence; Z79.899 Other long term (current) drug therapy; Z88.1 Allergy status to other antibiotic agents
CPT/HCPCS: 36415; 80053; 82150; 83605; 83690; 85025; 85610; 85730; 81001; 87040; 87086; 74177; 99285; 96365; 96375 ×2; 96376; 96361 ×3; J2765; J1170; J1956; Q9967

== ENCOUNTER 2016-12-20 09:19 | Inpatient (IN) | payer MEDICARE, BC ==
[2016-12-20] MEDS ORDERED: SODIUM CHLORIDE 0.9% 1,000 ML IV STA (10:20)
[2016-12-20] MEDS ORDERED: HYDROmorphone 1 MG/ML 1 ML SYRINGE IVP STA (10:32)
--- NOTE | 2016-12-20 10:35 | ED ---
Abdominal Pain HPI <Gideon Culver - Last Filed: 12/20/16 11:57> - General Source: patient, RN notes reviewed Mode of arrival: wheelchair Limitations: no limitations <Ana May - Last Filed: 12/20/16 12:09> - General Chief Complaint: Abdominal Pain Stated Complaint: side pain, cancer pt Time Seen by Provider: 12/20/16 10:05 - History of Present Illness Initial Comments: Patient is a 71-year-old male presents to the emergency room for evaluation of abdominal pain. Patient is currently going through chemotherapy for gastric cancer. Patient is following up with Dr. Millan for his treatment. Patient states that on Thursday during chemo he began having right-sided pain. Patient states he was sent down to the emergency room and missed his chemotherapy treatment. Patient states that they did lab work and a computed tomography scan. Patient states they found aortic aneurysm, aortic ulcer and mets to his liver. Patient states that he was offered admission but wanted to go home. Patient states he's been taking [place] for pain. Patient states the [place] has not been helping. Patient states the right-sided pain is worse. Patient states he has history of hernia repair. Patient also states he has a PEG tube in place. Patient denies nausea, vomiting, constipation or diarrhea. Patient states his last bowel movement was about 3 days ago. Patient states this is normal for him ever since starting chemotherapy. Patient denies fevers or chills. Patient denies headache or dizziness. Patient states having constant right upper quadrant and right lower quadrant throbbing pain. Patient denies chest pain. Patient states the pain does make him short of breath. ( Ana May) - Related Data Home Medications Medication Instructions Recorded Confirmed Amitriptyline HCl [Elavil] 25 mg PO HS PRN 05/12/14 12/20/16 Gabapentin [Neurontin] 400 mg PO BID 05/12/14 12/20/16 Metoprolol Tartrate [Lopressor] 25 mg PO DAILY 05/12/14 12/20/16 Sertraline [Zoloft] 100 mg PO DAILY 05/12/14 12/20/16 Mometasone Furoate [Mometasone 1 applic BOTH EARS DAILY PRN 07/21/16 12/20/16 Furoate 0.1%] Multivitamins, Thera [Multivitamin 1 tab PO DAILY 07/21/16 12/20/16 (formulary)] Previous Rx's Medication Instructions Recorded Ciprofloxacin HCl [Cipro] 500 mg PO Q12HR 7 Days 12/17/16 HYDROcodone/APAP 10-325MG [[place] 1 tab PO Q6H PRN #20 tab 12/17/16 10-325] Allergies Allergy/AdvReac Type Severity Reaction Status Date / Time cephalexin [From Keflex] Allergy Rash/Hives Verified 12/20/16 11:40 Review of Systems ROS Other: All systems not noted in ROS Statement are negative. <Gideon Culver - Last Filed: 12/20/16 11:57> ROS Other: All systems not noted in ROS Statement are negative. <Ana May - Last Filed: 12/20/16 12:09> ROS Statement: Those systems with pertinent positive or pertinent negative responses have been documented in the HPI. Past Medical History Past Medical History: Cancer, Hypertension, Osteoarthritis (OA) Additional Past Medical History / Comment(s): CHRONIC BACK PAIN, Hx prostate cancer 1995 HAD SX And radiation-pt incont of urine wears a pad.hepatitis as child. aaa pt unsure of size, "borderline dm- no meds and does'nt check blood sugars. "recently dx stomach ca and mets to liver currently receiving chemotherapy History of Any Multi-Drug Resistant Organisms: None Reported Past Surgical History: Hernia Repair, Prostate Surgery Additional Past Surgical History / Comment(s): UMBILICAL AND INGUINAL HERNIA, surgery for nose bleeds, egd w/ bx, liver bx, prostatectomy Past Anesthesia/Blood Transfusion Reactions: No Reported Reaction Past Psychological History: Anxiety, Depression Smoking Status: Former smoker Past Alcohol Use History: None Reported Past Drug Use History: None Reported - Past Family History Mother Family Medical History: CVA/TIA Additional Family Medical History / Comment(s): mom from a stroke when pt was 4 years old. Father Family Medical History: No Reported History <Ana May - Last Filed: 12/20/16 12:09> General Exam <Gideon Culver - Last Filed: 12/20/16 11:57> Limitations: no limitations General appearance: alert, in no apparent distress Head exam: Present: atraumatic, normocephalic, normal inspection Eye exam: Present: normal appearance ENT exam: Present: normal exam Neck exam: Present: normal inspection Respiratory exam: Present: normal lung sounds bilaterally. Absent: respiratory distress Cardiovascular Exam: Present: regular rate, normal rhythm, normal heart sounds GI/Abdominal exam: Present: soft, tenderness (Right upper quadrant, right lower quadrant), normal bowel sounds, other (PEG tube in place. No surrounding erythema, edema or drainage). Absent: distended, guarding, rebound, rigid Extremities exam: Present: normal inspection Back exam: Present: normal inspection Neurological exam: Present: alert, oriented X3, CN II-XII intact Psychiatric exam: Present: normal affect, normal mood Skin exam: Present: warm, dry, intact, normal color. Absent: rash <Ana May - Last Filed: 12/20/16 12:09> - General Exam Comments Initial Comments: Laying in exam room, no acute distress. (Ana May) Course <Gideon Culver - Last Filed: 12/20/16 11:57> <Ana May - Last Filed: 12/20/16 12:09> Vital Signs 12/20/16 12/20/16 09:21 11:31 Temperature 97.4 F L 97.6 F Pulse Rate 89 73 Respiratory 20 18 Rate Blood Pressure 138/83 121/66 O2 Sat by Pulse 98 96 Oximetry - Reevaluation(s) Reevaluation #1: 12/20/16 11:57 I did personally do a [id number] evaluation the patient did discuss findings with him and his family. Patient does demonstrate intractable pain and failure to thrive he will be admitted I did discuss case with Dr. More. Patient does demonstrate tenderness palpation of the right upper quadrant right flank area. No overt CVA tenderness. No pulsatile masses no bruits. (Gideon Culver) Medical Decision Making - Lab Data Result diagrams: 12/20/16 10:55 12/20/16 10:55 <Gideon Culver - Last Filed: 12/20/16 11:57> - Lab Data Result diagrams: 12/20/16 10:55 12/20/16 10:55 <Ana May - Last Filed: 12/20/16 12:09> - Lab Data Lab Results 12/20/16 12/20/16 12/20/16 Range/Units 10:55 10:55 10:55 WBC 17.2 H (3.8-10.6) k/uL RBC 3.03 L (4.30-5.90) m/uL Hgb 9.3 L D (13.0-17.5) gm/dL Hct 28.8 L (39.0-53.0) % MCV 95.0 (80.0-100.0) fL MCH 30.6 (25.0-35.0) pg MCHC 32.2 (31.0-37.0) g/dL RDW 18.0 H (11.5-15.5) % Plt Count 266 (150-450) k/uL Neutrophils % 91 % Lymphocytes % 3 % Monocytes % 4 % Eosinophils % 0 % Basophils % 0 % Neutrophils # 15.7 H (1.3-7.7) k/uL Lymphocytes # 0.6 L (1.0-4.8) k/uL Monocytes # 0.7 (0-1.0) k/uL Eosinophils # 0.0 (0-0.7) k/uL Basophils # 0.0 (0-0.2) k/uL Hypochromasia Slight Anisocytosis Slight Macrocytosis Slight PT 11.4 (9.0-12.0) sec INR 1.1 (<1.2) APTT 25.6 (22.0-30.0) sec Sodium 132 L (137-145) mmol/L Potassium 4.3 (3.5-5.1) mmol/L Chloride 98 (98-107) mmol/L Carbon Dioxide 28 (22-30) mmol/L Anion Gap 6 mmol/L BUN 10 (9-20) mg/dL Creatinine 0.61 L (0.66-1.25) mg/dL Est GFR (MDRD) Af Amer >60 (>60 ml/min/1.73 sqM) Est GFR (MDRD) Non-Af >60 (>60 ml/min/1.73 sqM) Glucose 235 H (74-99) mg/dL Calcium 8.9 (8.4-10.2) mg/dL Total Bilirubin 0.4 (0.2-1.3) mg/dL AST 25 (17-59) U/L ALT 40 (21-72) U/L Alkaline Phosphatase 203 H (38-126) U/L Total Protein 6.1 L (6.3-8.2) g/dL Albumin 2.8 L (3.5-5.0) g/dL Amylase <30 L (30-110) U/L Lipase 98 (23-300) U/L Urine Color Urine Appearance (Clear) Urine pH (5.0-8.0) Ur Specific [place] (1.001-1.035) Urine Protein (Negative) Urine Glucose (UA) (Negative) Urine Ketones (Negative) Urine Blood (Negative) Urine Nitrite (Negative) Urine Bilirubin (Negative) Urine Urobilinogen (<2.0) mg/dL Ur Leukocyte Esterase (Negative) 12/20/16 Range/Units 11:14 WBC (3.8-10.6) k/uL RBC (4.30-5.90) m/uL Hgb (13.0-17.5) gm/dL Hct (39.0-53.0) % MCV (80.0-100.0) fL MCH (25.0-35.0) pg MCHC (31.0-37.0) g/dL RDW (11.5-15.5) % Plt Count (150-450) k/uL Neutrophils % % Lymphocytes % % Monocytes % % Eosinophils % % Basophils % % Neutrophils # (1.3-7.7) k/uL Lymphocytes # (1.0-4.8) k/uL Monocytes # (0-1.0) k/uL Eosinophils # (0-0.7) k/uL Basophils # (0-0.2) k/uL Hypochromasia Anisocytosis Macrocytosis PT (9.0-12.0) sec INR (<1.2) APTT (22.0-30.0) sec Sodium (137-145) mmol/L Potassium (3.5-5.1) mmol/L Chloride (98-107) mmol/L Carbon Dioxide (22-30) mmol/L Anion Gap mmol/L BUN (9-20) mg/dL Creatinine (0.66-1.25) mg/dL Est GFR (MDRD) Af Amer (>60 ml/min/1.73 sqM) Est GFR (MDRD) Non-Af (>60 ml/min/1.73 sqM) Glucose (74-99) mg/dL Calcium (8.4-10.2) mg/dL Total Bilirubin (0.2-1.3) mg/dL AST (17-59) U/L ALT (21-72) U/L Alkaline Phosphatase (38-126) U/L Total Protein (6.3-8.2) g/dL Albumin (3.5-5.0) g/dL Amylase (30-110) U/L Lipase (23-300) U/L Urine Color Yellow Urine Appearance Clear (Clear) Urine pH 5.5 (5.0-8.0) Ur Specific [place] 1.008 (1.001-1.035) Urine Protein Negative (Negative) Urine Glucose (UA) Negative (Negative) Urine Ketones Negative (Negative) Urine Blood Negative (Negative) Urine Nitrite Negative (Negative) Urine Bilirubin Negative (Negative) Urine Urobilinogen <2.0 (<2.0) mg/dL Ur Leukocyte Esterase Negative (Negative) Disposition <Gideon Culver - Last Filed: 12/20/16 11:57> Decision Date: 12/20/16 <Ana May - Last Filed: 12/20/16 12:09> Clinical Impression: Abdominal pain, Failure to thrive Disposition: ADMITTED IP TO THIS [facility] Condition: Stable Referrals: Kris Her MD [Primary Care Provider] - 1-2 days
--- NOTE | 2016-12-20 11:12 | XR ---
EXAMINATION TYPE: XR chest 2V DATE OF EXAM: 12/20/2016 HISTORY: Pain. REFERENCE: Previous study dated 09/26/2016. FINDINGS: There is a MediPort in place on the right. The lungs are clear. Pleural space are clear. Heart size is upper limits of normal. IMPRESSION: BORDERLINE CARDIOMEGALY.
[2016-12-20 11:19] LABS: ALT 40 U/L (21-72); AST 25 U/L (17-59); Alkaline Phosphatase 203 U/L (38-126); Amylase <30 U/L (30-110); Anion Gap 6 mmol/L; Blood Urea Nitrogen 10 mg/dL (9-20); Calcium 8.9 mg/dL (8.4-10.2); Carbon Dioxide 28 mmol/L (22-30); Chloride 98 mmol/L (98-107); Glucose 235 mg/dL (74-99); Non-African American GFR(MDRD) >60 (>60 ml/min/1.73 sqM); Potassium 4.3 mmol/L (3.5-5.1); Sodium 132 mmol/L (137-145); Total Bilirubin 0.4 mg/dL (0.2-1.3); Total Protein 6.1 g/dL (6.3-8.2)
[2016-12-20 11:21] LABS: Anisocytosis Slight; Basophils % (A) 0 %; CH 30.6; CHCM 32.3; Eosinophils % (A) 0 %; HCT 28.8 % (39.0-53.0); HDW 2.93; HGB 9.3 gm/dL (13.0-17.5); Hypochromasia Slight; Luc # (Auto) 0.21; Luc % (Auto) 1; Lymphocytes # (A) 0.6 k/uL (1.0-4.8); Lymphocytes % (A) 3 %; MCH 30.6 pg (25.0-35.0); MCHC 32.2 g/dL (31.0-37.0); Macrocytosis Slight; Mean Platelet Volume 7.9; Monocytes # (A) 0.7 k/uL (0-1.0); Monocytes % (A) 4 %; Neutrophils # (A) 15.7 k/uL (1.3-7.7); Neutrophils % (A) 91 %; RBC 3.03 m/uL (4.30-5.90); WBC 17.2 k/uL (3.8-10.6)
[2016-12-20 11:31] LABS: INR 1.1 (<1.2); Partial Thromboplastin Time 25.6 sec (22.0-30.0); Prothrombin Time 11.4 sec (9.0-12.0)
[2016-12-20 11:42] LABS: Appearance,Urine Clear (Clear); Bilirubin,Urine Negative (Negative); Glucose,Urine (UA) Negative (Negative); Ketones,Urine Negative (Negative); Leukocyte Esterase,Urine Negative (Negative); Nitrite,Urine Negative (Negative); PH, Urine 5.5 (5.0-8.0); Protein,Urine Negative (Negative); Specific Gravity,Urine 1.008 (1.001-1.035); UA Billing (MACRO vs. MICRO) CHEM; Urobilinogen,Urine <2.0 mg/dL (<2.0)
[2016-12-20] MEDS ORDERED: HYDROmorphone 1 MG/ML 1 ML SYRINGE IV PRN (11:55)
[2016-12-20] MEDS ORDERED: NALOXONE 0.4 MG/ML 1 ML VIAL IV PRN (11:55)
[2016-12-20] MEDS ORDERED: ONDANSETRON 4 MG/2 ML VIAL IVP PRN (11:55)
[2016-12-20] MEDS ORDERED: AMITRIPTYLINE HCL 25 MG TAB PO PRN (11:57)
[2016-12-20] MEDS ORDERED: MOMETASONE FUROATE BOTH EARS PRN (11:57)
[2016-12-20] MEDS ORDERED: SODIUM CHLORIDE 0.9% 1,000 ML IV SCH (12:00)
[2016-12-20 14:35] VITALS: BMI 29.7
[2016-12-20] MEDS: HYDROmorphone 1 MG/ML 1 ML SYRINGE IV PRN ×3 (15:21→20:26)
[2016-12-20] MEDS ORDERED: IOHEXOL 350 MG/ML 25 ML BOTTLE (ORAL USE) PO PRN (16:24)
[2016-12-20] MEDS ORDERED: RX INFO: IV CONTRAST WAS GIVEN 1 EACH MISC MISCELLANE PRN (16:24)
[2016-12-20] MEDS ORDERED: ALPRAZolam 0.25 MG TAB PO PRN (16:26)
[2016-12-20] MEDS ORDERED: TEMAZEPAM 15 MG CAP PO PRN (16:26)
[2016-12-20] MEDS: HYDROcodone/APAP 15 ML SOLUTION PEG/G-TUBE PRN (17:31)
[2016-12-20 17:51] LABS: Glucose,Whole Blood 168 mg/dL (75-99)
--- NOTE | 2016-12-20 19:03 | CT ---
EXAMINATION TYPE: CT ChestAbdPelvis w con DATE OF EXAM: 12/20/2016 COMPARISON: Prior CT abdomen pelvis 12/17/2016 HISTORY: Abdominal pain and history of aortic ulcer. CT DLP: 2005.80 mGycm Automated exposure control for dose reduction was used. CONTRAST: CT scan of the chest, abdomen and pelvis is performed with Oral Contrast and with IV Contrast, patien t injected with 100 mL of Omnipaque 300. FINDINGS: There is motion on the exam. This may limit sensitivity. LUNGS: The lungs are remarkable for dependent atelectatic changes. There is evidence of granulomatous disease, there is no concerning parenchymal mass or nodule identified. There is no pleural effusio n or pneumothorax seen. The tracheobronchial tree is patent. MEDIASTINUM: There are no greater than 1 cm hilar or mediastinal lymph nodes. No pericardial effusi on is seen. AORTA: Aortic root is dilated to approximately 5 cm. Aortic ulcer again noted with associated aneury smal dilation. OTHER: There are coronary artery calcifications present. LIVER/GB: Stable findings, multiple hypoechoic dense foci compatible with metastasis within the liver , gallbladder is unremarkable. PANCREAS: No significant abnormality is seen. SPLEEN: Multiple calcifications compatible with old granulomatous disease. ADRENALS: No significant abnormality is seen. KIDNEYS: Stable, nonobstructing calcification lower pole left kidney, cystic foci associated with bot h kidneys as on prior exam. REPRODUCTIVE ORGANS: Stable appearance in the pelvis, post prostatectomy suspected. BOWEL: No significant abnormality is seen. FREE AIR: No Free Air visible. ASCITES: None seen. RETROPERITONEAL ADENOPATHY: No retroperitoneal adenopathy is seen. LYMPH NODES: No greater than 1 cm abdominal or pelvic lymph nodes are appreciated. URINARY BLADDER: Able. PELVIC ADENOPATHY: None visualized. OSSEOUS STRUCTURES: No significant abnormality is seen. IMPRESSION: Findings are similar to prior exam. Metastatic disease. Aortic aneurysm at the aortic david t, penetrating aortic ulcer in infrarenal abdominal aorta.
[2016-12-20] MEDS: INSULIN LISPRO (humaLOG) 300 UNIT/3 ML VIAL SQ SCH ×2 (19:17→22:24)
[2016-12-20] MEDS: HEPARIN SODIUM,PORCINE 5,000 UNIT/ML 1 ML VIAL SQ SCH (20:18)
[2016-12-20] MEDS: GABAPENTIN 400 MG CAP PO SCH (20:19)
[2016-12-20] MEDS: PANTOPRAZOLE 40 MG/10 ML VIAL IVP SCH (20:19)
[2016-12-20 22:33] LABS: Glucose,Whole Blood 226 mg/dL (75-99)
[2016-12-21] MEDS: HYDROmorphone 1 MG/ML 1 ML SYRINGE IV PRN ×2 (06:12→15:46)
[2016-12-21 06:33] VITALS: RESP 18
[2016-12-21 06:34] LABS: Anisocytosis Slight; Basophils % (A) 0 %; CH 30.9; CHCM 32.5; Eosinophils # (A) 0.1 k/uL (0-0.7); Eosinophils % (A) 1 %; HCT 28.5 % (39.0-53.0); HDW 2.94; HGB 9.3 gm/dL (13.0-17.5); Luc # (Auto) 0.17; Luc % (Auto) 1; Lymphocytes # (A) 0.7 k/uL (1.0-4.8); Lymphocytes % (A) 4 %; MCHC 32.5 g/dL (31.0-37.0); MCV 95.5 fL (80.0-100.0); Macrocytosis Slight; Mean Platelet Volume 8.5; Monocytes # (A) 0.7 k/uL (0-1.0); Monocytes % (A) 4 %; Neutrophils # (A) 15.5 k/uL (1.3-7.7); Neutrophils % (A) 90 %; RBC 2.99 m/uL (4.30-5.90); RDW 18.7 % (11.5-15.5); WBC 17.2 k/uL (3.8-10.6); WBC (Perox) 18.35
[2016-12-21 06:46] LABS: ALT 44 U/L (21-72); AST 32 U/L (17-59); Alkaline Phosphatase 219 U/L (38-126); Anion Gap 6 mmol/L; Blood Urea Nitrogen 8 mg/dL (9-20); Calcium 8.7 mg/dL (8.4-10.2); Carbon Dioxide 28 mmol/L (22-30); Chloride 99 mmol/L (98-107); Glucose 185 mg/dL (74-99); Non-African American GFR(MDRD) >60 (>60 ml/min/1.73 sqM); Potassium 4.3 mmol/L (3.5-5.1); Sodium 133 mmol/L (137-145); Total Bilirubin 0.3 mg/dL (0.2-1.3)
[2016-12-21 07:46] LABS: Hemoglobin A1C 9.4 % (4.2-6.1)
[2016-12-21 07:54] LABS: Glucose,Whole Blood 201 mg/dL (75-99)
[2016-12-21] MEDS: PANTOPRAZOLE 40 MG/10 ML VIAL IVP SCH (07:56)
[2016-12-21] MEDS: HEPARIN SODIUM,PORCINE 5,000 UNIT/ML 1 ML VIAL SQ SCH (07:57)
[2016-12-21] MEDS: GABAPENTIN 400 MG CAP PO SCH (07:57)
[2016-12-21] MEDS: INSULIN LISPRO (humaLOG) 300 UNIT/3 ML VIAL SQ SCH ×2 (07:57→12:51)
[2016-12-21] MEDS ORDERED: METOPROLOL TARTRATE 25 MG TAB PO SCH (09:00)
[2016-12-21] MEDS ORDERED: SERTRALINE 100 MG TAB PO SCH (09:00)
--- NOTE | 2016-12-21 09:05 | P.GSCN ---
History of Present Illness Consult date: 12/21/16 Reason for Consult: Abdominal pain History of present illness: This is a 21-year-old male who has a diagnosis of metastatic gastric cancer with liver metastases. Patient was admitted to the hospital for severe abdominal pain. He has had a PEG tube and Port-A-Cath placement Dr. Goldberg recently. He describes crampy intermittent abdominal pain. Past Medical History Past Medical History: Cancer, Hypertension, Osteoarthritis (OA) Additional Past Medical History / Comment(s): CHRONIC BACK PAIN, Hx prostate cancer 1995 HAD SX And radiation-pt incont of urine wears a pad.hepatitis as child. aaa pt unsure of size, "borderline dm- no meds and does'nt check blood sugars. "recently dx stomach ca and mets to liver currently receiving chemotherapy History of Any Multi-Drug Resistant Organisms: None Reported Past Surgical History: Hernia Repair, Prostate Surgery Additional Past Surgical History / Comment(s): UMBILICAL AND INGUINAL HERNIA, surgery for nose bleeds, egd w/ bx, liver bx, prostatectomy Past Anesthesia/Blood Transfusion Reactions: No Reported Reaction Past Psychological History: Anxiety, Depression Smoking Status: Former smoker Past Alcohol Use History: None Reported Past Drug Use History: None Reported - Past Family History Mother Family Medical History: CVA/TIA Additional Family Medical History / Comment(s): mom from a stroke when pt was 4 years old. Father Family Medical History: No Reported History Medications and Allergies Home Medications Medication Instructions Recorded Confirmed Type Amitriptyline HCl [Elavil] 25 mg PO HS PRN 05/12/14 12/20/16 History Gabapentin [Neurontin] 400 mg PO BID 05/12/14 12/20/16 History Metoprolol Tartrate [Lopressor] 25 mg PO DAILY 05/12/14 12/20/16 History Sertraline [Zoloft] 100 mg PO DAILY 05/12/14 12/20/16 History Mometasone Furoate [Mometasone 1 applic BOTH EARS DAILY PRN 07/21/16 12/20/16 History Furoate 0.1%] Multivitamins, Thera [Multivitamin 1 tab PO DAILY 07/21/16 12/20/16 History (formulary)] Ciprofloxacin HCl [Cipro] 500 mg PO Q12HR 7 Days 12/17/16 12/20/16 Rx HYDROcodone/APAP 10-325MG [[place] 1 tab PO Q6H PRN #20 tab 12/17/16 12/20/16 Rx 10-325] Allergies Allergy/AdvReac Type Severity Reaction Status Date / Time cephalexin [From Keflex] Allergy Rash/Hives Verified 12/20/16 11:40 Surgical - Exam Vital Signs Temp Pulse Resp BP Pulse Ox 97.4 F L 89 20 138/83 98 12/20/16 09:21 12/20/16 09:21 12/20/16 09:21 12/20/16 09:21 12/20/16 09:21 - General well developed, no distress - Eyes PERRL - ENT normal pinna - Neck no masses - Respiratory normal expansion - Cardiovascular Rhythm: regular - Abdomen Mildly distended. There is a PEG tube in the left upper quadrant. There is no rebound or guarding Abdomen: soft Results - Labs 12/21/16 06:15 12/21/16 06:15 Abnormal Lab Results - Last 24 Hours (Table) 12/20/16 12/20/16 12/20/16 Range/Units 10:55 10:55 16:57 WBC 17.2 H (3.8-10.6) k/uL RBC 3.03 L (4.30-5.90) m/uL Hgb 9.3 L D (13.0-17.5) gm/dL Hct 28.8 L (39.0-53.0) % RDW 18.0 H (11.5-15.5) % Neutrophils # 15.7 H (1.3-7.7) k/uL Lymphocytes # 0.6 L (1.0-4.8) k/uL Sodium 132 L (137-145) mmol/L BUN (9-20) mg/dL Creatinine 0.61 L (0.66-1.25) mg/dL Glucose 235 H (74-99) mg/dL POC Glucose (mg/dL) (75-99) mg/dL Hemoglobin A1c 9.4 H (4.2-6.1) % Alkaline Phosphatase 203 H (38-126) U/L Total Protein 6.1 L (6.3-8.2) g/dL Albumin 2.8 L (3.5-5.0) g/dL Amylase <30 L (30-110) U/L 12/20/16 12/20/16 12/21/16 Range/Units 17:50 22:23 06:15 WBC 17.2 H (3.8-10.6) k/uL RBC 2.99 L (4.30-5.90) m/uL Hgb 9.3 L (13.0-17.5) gm/dL Hct 28.5 L (39.0-53.0) % RDW 18.7 H (11.5-15.5) % Neutrophils # 15.5 H (1.3-7.7) k/uL Lymphocytes # 0.7 L (1.0-4.8) k/uL Sodium (137-145) mmol/L BUN (9-20) mg/dL Creatinine (0.66-1.25) mg/dL Glucose (74-99) mg/dL POC Glucose (mg/dL) 168 H 226 H (75-99) mg/dL Hemoglobin A1c (4.2-6.1) % Alkaline Phosphatase (38-126) U/L Total Protein (6.3-8.2) g/dL Albumin (3.5-5.0) g/dL Amylase (30-110) U/L 12/21/16 12/21/16 Range/Units 06:15 07:29 WBC (3.8-10.6) k/uL RBC (4.30-5.90) m/uL Hgb (13.0-17.5) gm/dL Hct (39.0-53.0) % RDW (11.5-15.5) % Neutrophils # (1.3-7.7) k/uL Lymphocytes # (1.0-4.8) k/uL Sodium 133 L (137-145) mmol/L BUN 8 L (9-20) mg/dL Creatinine 0.60 L (0.66-1.25) mg/dL Glucose 185 H (74-99) mg/dL POC Glucose (mg/dL) 201 H (75-99) mg/dL Hemoglobin A1c (4.2-6.1) % Alkaline Phosphatase 219 H (38-126) U/L Total Protein 6.0 L (6.3-8.2) g/dL Albumin 2.6 L (3.5-5.0) g/dL Amylase (30-110) U/L Microbiology - Last 24 Hours (Table) 12/20/16 11:14 Urine Culture - Preliminary Urine,Voided Diabetes panel 12/20/16 12/20/16 12/21/16 Range/Units 10:55 16:57 06:15 Sodium 132 L 133 L (137-145) mmol/L Potassium 4.3 4.3 (3.5-5.1) mmol/L Chloride 98 99 (98-107) mmol/L Carbon Dioxide 28 28 (22-30) mmol/L BUN 10 8 L (9-20) mg/dL Creatinine 0.61 L 0.60 L (0.66-1.25) mg/dL Glucose 235 H 185 H (74-99) mg/dL Hemoglobin A1c 9.4 H (4.2-6.1) % Calcium 8.9 8.7 (8.4-10.2) mg/dL AST 25 32 (17-59) U/L ALT 40 44 (21-72) U/L Alkaline Phosphatase 203 H 219 H (38-126) U/L Total Protein 6.1 L 6.0 L (6.3-8.2) g/dL Albumin 2.8 L 2.6 L (3.5-5.0) g/dL Calcium panel 12/20/16 12/21/16 Range/Units 10:55 06:15 Calcium 8.9 8.7 (8.4-10.2) mg/dL Albumin 2.8 L 2.6 L (3.5-5.0) g/dL Pituitary panel 12/20/16 12/21/16 Range/Units 10:55 06:15 Sodium 132 L 133 L (137-145) mmol/L Potassium 4.3 4.3 (3.5-5.1) mmol/L Chloride 98 99 (98-107) mmol/L Carbon Dioxide 28 28 (22-30) mmol/L BUN 10 8 L (9-20) mg/dL Creatinine 0.61 L 0.60 L (0.66-1.25) mg/dL Glucose 235 H 185 H (74-99) mg/dL Calcium 8.9 8.7 (8.4-10.2) mg/dL Adrenal panel 12/20/16 12/21/16 Range/Units 10:55 06:15 Sodium 132 L 133 L (137-145) mmol/L Potassium 4.3 4.3 (3.5-5.1) mmol/L Chloride 98 99 (98-107) mmol/L Carbon Dioxide 28 28 (22-30) mmol/L BUN 10 8 L (9-20) mg/dL Creatinine 0.61 L 0.60 L (0.66-1.25) mg/dL Glucose 235 H 185 H (74-99) mg/dL Calcium 8.9 8.7 (8.4-10.2) mg/dL Total Bilirubin 0.4 0.3 (0.2-1.3) mg/dL AST 25 32 (17-59) U/L ALT 40 44 (21-72) U/L Alkaline Phosphatase 203 H 219 H (38-126) U/L Total Protein 6.1 L 6.0 L (6.3-8.2) g/dL Albumin 2.8 L 2.6 L (3.5-5.0) g/dL Assessment and Plan Plan: Abdominal pain most likely due to metastatic gastric cancer. Patient receiving IV Dilaudid. Dr. Goldberg will reevaluate the patient in the morning.
--- NOTE | 2016-12-21 09:31 | HP ---
HISTORY AND PHYSICAL CHIEF COMPLAINT: Abdominal pain. HISTORY: This is a 71-year-old gentleman with a past history of esophageal metastatic adenocarcinoma being followed by Dr. Millan as well as Dr. Kris Her in the outpatient setting. He had started on chemotherapy recently. The patient also had PEG tube placement because of dysphagia. The patient is complaining of severe abdominal pain which is on the right side and the patient came to [facility] and was admitted because of no relief from the pain medication at home. There is no history of fever, rigors or chills. No history of headache, loss consciousness or seizures at this time. past medical history of hypertension, CAD history and patient PAST MEDICAL HISTORY: History of hypertension, history of DJD. Recently diagnosed with malignancy, PEG tube placement. HOME MEDICATIONS: 1. Zoloft 100 mg p.o. daily. 2. Multivitamins one p.o. daily. 4. Lopressor 25 mg a day. 5. [place] 1 tab q.6 hours p.r.n. 6. Neurontin 400 mg p.o. b.i.d. 7. Cipro 500 mg p.o. b.i.d. ALLERGIES: KEFLEX. FAMILY HISTORY: History of CVA and TIA in the family. SOCIAL HISTORY: Previous history of smoking. No history of alcohol. REVIEW OF SYSTEMS: ENT: No diminished hearing or vision. CARDIOVASCULAR; No angina or palpation. GI: As mentioned earlier. : No dysuria.. NERVOUS SYSTEM: As mentioned earlier. MUSCULOSKELETAL: As mentioned earlier. HEMATOLOGY: As mentioned earlier. ENDOCRINE: No history of diabetes or hypothyroidism. CONSTITUTIONAL: As mentioned earlier. PSYCHIATRIC: As mentioned earlier. PHYSICAL EXAMINATION: Alert and oriented x3. Pulse is 73, blood pressure 120/60, respiration 18, temperature 97.6, pulse ox 96% on room air. EYES: Conjunctivae normal. NECK; No jugular venous distention. No carotid bruit. No lymph node enlargement. CARDIOVASCULAR: S1, S2. RESPIRATORY: Diminished breath sounds especially at the bases. A few scattered rhonchi. No crackles. ABDOMEN: Soft. PEG tube in situ. Mild diffuse tenderness present. No guarding. No mass palpable. LEGS: No edema. No swelling. NERVOUS SYSTEM: Higher functions as mentioned. Moves all four limbs. LYMPHATICS: No lymph nodes in the neck or axilla. SKIN: No rash. LAB STUDIES: WBC 17.2, hemoglobin 9.3. Sodium 132. Alk phos is 203 and glucose 235. ASSESSMENT: 1. Intractable abdominal pain with failure of outpatient treatment. 2. Aortic aneurysm, aortic ulcer. 3. 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 4. Increased WBC. 5. Anemia, normocytic anemia of malignancy. 6. Hyponatremia. 7. Hypertension. 8. History of degenerative joint disease. 9. History of chronic back pain. 10.History of prostate cancer. 11.History of anxiety and depression. RECOMMENDATIONS AND DISCUSSION: In this 71-year-old gentleman who presented with multiple complex medical issues , we will monitor the patient closely, continue the current medication, continue symptomatic treatment. Otherwise, at this time I recommend symptomatic treatment. If the patient is not improving I recommend a CT scan of the abdomen. Abdomen is soft at this time. Otherwise, aortic aneurysm and aortic ulcer was suspected also. Guarded prognosis because of multiple complex medical issues. Further recommendations to follow. I recommend CT scan of abdomen and pelvis with contrast currently. MMODL / IJN: [id number] / PETRA
--- NOTE | 2016-12-21 10:12 | P.CONS ---
History of Present Illness - Reason for Consult Consult date: 12/21/16 Intractable pain. Metastatic gastric cancer - History of Present Illness The patient is a 71-year-old gentleman, well known to our service. He is followed by Dr. Millan in the office. He was diagnosed with gastric cancer in early 09/27. Unfortunately the patient had metastatic disease to the liver at that time, which was documented with liver biopsy. The patient is currently on chemotherapy (details of the exact regimen are not available to me at this time) . Last chemotherapy was about 18 days ago. He was supposed to have a cycle on 12/17/16. However he did call the office stating that he was having severe pain in the right side of the abdomen. This was started about 2 weeks ago and was fairly mild, but had progressed significantly. It into the emergency room, where he had a computed tomography scan of the abdomen and pelvis done. This again showed evidence of liver metastasis, with no change mentioned in comparison to his previous scan in 09/27. Urinalysis showed the possibility of a UTI. The patient was started on antibiotics and subsequently discharged. However the pain continued to get worse, due to which she came back to the emergency room and was admitted for further management. On the patient denies any change in the pain with eating, urination or bowel movements. He has had some mild nausea but no overt vomiting. He has not noted any change in his bowel habits or blood in the stool. The patient does not appear to be associated with change in position either. Her Dilaudid, on which she is on currently appears to provide good pain control as long as he does not move around too much Review of Systems Constitutional: Reports poor appetite (Status post PEG placement in 11/27), Reports weakness, Reports weight loss Eyes: denies blurred vision, denies pain Ears: deny: decreased hearing, ear discharge, earache, tinnitus Ears, nose, mouth and throat: Denies headache, Denies sore throat Cardiovascular: Reports decreased exercise tolerance Respiratory: Denies cough Gastrointestinal: Reports abdominal pain Genitourinary: Reports as per HPI Musculoskeletal: Denies myalgias Integumentary: Denies pruritus, Denies rash Neurological: Reports weakness, Denies numbness Psychiatric: Denies anxiety, Denies depression Endocrine: Reports weight change Hematologic/Lymphatic: Reports as per HPI Past Medical History Past Medical History: Cancer, Hypertension, Osteoarthritis (OA) Additional Past Medical History / Comment(s): CHRONIC BACK PAIN, Hx prostate cancer 1995 HAD SX And radiation-pt incont of urine wears a pad.hepatitis as child. aaa pt unsure of size, "borderline dm- no meds and does'nt check blood sugars. "recently dx stomach ca and mets to liver currently receiving chemotherapy History of Any Multi-Drug Resistant Organisms: None Reported Past Surgical History: Hernia Repair, Prostate Surgery Additional Past Surgical History / Comment(s): UMBILICAL AND INGUINAL HERNIA, surgery for nose bleeds, egd w/ bx, liver bx, prostatectomy Past Anesthesia/Blood Transfusion Reactions: No Reported Reaction Past Psychological History: Anxiety, Depression Smoking Status: Former smoker Past Alcohol Use History: None Reported Past Drug Use History: None Reported - Past Family History Mother Family Medical History: CVA/TIA Additional Family Medical History / Comment(s): mom from a stroke when pt was 4 years old. Father Family Medical History: No Reported History Medications and Allergies Home Medications Medication Instructions Recorded Confirmed Type Amitriptyline HCl [Elavil] 25 mg PO HS PRN 05/12/14 12/20/16 History Gabapentin [Neurontin] 400 mg PO BID 05/12/14 12/20/16 History Metoprolol Tartrate [Lopressor] 25 mg PO DAILY 05/12/14 12/20/16 History Sertraline [Zoloft] 100 mg PO DAILY 05/12/14 12/20/16 History Mometasone Furoate [Mometasone 1 applic BOTH EARS DAILY PRN 07/21/16 12/20/16 History Furoate 0.1%] Multivitamins, Thera [Multivitamin 1 tab PO DAILY 07/21/16 12/20/16 History (formulary)] Ciprofloxacin HCl [Cipro] 500 mg PO Q12HR 7 Days 12/17/16 12/20/16 Rx HYDROcodone/APAP 10-325MG [[place] 1 tab PO Q6H PRN #20 tab 12/17/16 12/20/16 Rx 10-325] Allergies Allergy/AdvReac Type Severity Reaction Status Date / Time cephalexin [From Keflex] Allergy Rash/Hives Verified 12/20/16 11:40 Physical Exam Vitals: Vital Signs Temp Pulse Pulse Resp BP BP Pulse Ox 12/21/16 06:33 99.3 F 81 18 136/69 91 L 12/20/16 21:39 98.2 F 61 16 102/48 94 L 12/20/16 16:00 69 18 12/20/16 15:00 98.4 F 84 150/72 94 L 12/20/16 12:22 97.9 F 67 18 104/61 12/20/16 11:31 97.6 F 73 18 121/66 96 Intake and Output 12/20/16 12/21/16 12/21/16 22:59 06:59 14:59 Other: Voiding Method Toilet Toilet Toilet # Voids 2 Weight 102.058 kg - Constitutional General appearance: no acute distress - EENT Eyes: PERRLA ENT: hearing grossly normal, normal oropharynx - Neck Neck: no lymphadenopathy Thyroid: bilateral: normal size - Respiratory Respiratory: bilateral: CTA - Cardiovascular Rhythm: regular Heart sounds: normal: S1, S2 - Gastrointestinal General gastrointestinal: normal bowel sounds, soft - Integumentary Integumentary: normal - Neurologic Neurologic: CNII-XII intact - Musculoskeletal Musculoskeletal: generalized weakness, strength equal bilaterally - Psychiatric Psychiatric: A&O x's 3, appropriate affect Results CBC & Chem 7: 12/21/16 06:15 12/21/16 06:15 Labs: Abnormal Lab Results - Last 24 Hours (Table) 12/20/16 12/20/16 12/20/16 Range/Units 10:55 10:55 16:57 WBC 17.2 H (3.8-10.6) k/uL RBC 3.03 L (4.30-5.90) m/uL Hgb 9.3 L D (13.0-17.5) gm/dL Hct 28.8 L (39.0-53.0) % RDW 18.0 H (11.5-15.5) % Neutrophils # 15.7 H (1.3-7.7) k/uL Lymphocytes # 0.6 L (1.0-4.8) k/uL Sodium 132 L (137-145) mmol/L BUN (9-20) mg/dL Creatinine 0.61 L (0.66-1.25) mg/dL Glucose 235 H (74-99) mg/dL POC Glucose (mg/dL) (75-99) mg/dL Hemoglobin A1c 9.4 H (4.2-6.1) % Alkaline Phosphatase 203 H (38-126) U/L Total Protein 6.1 L (6.3-8.2) g/dL Albumin 2.8 L (3.5-5.0) g/dL Amylase <30 L (30-110) U/L 12/20/16 12/20/16 12/21/16 Range/Units 17:50 22:23 06:15 WBC 17.2 H (3.8-10.6) k/uL RBC 2.99 L (4.30-5.90) m/uL Hgb 9.3 L (13.0-17.5) gm/dL Hct 28.5 L (39.0-53.0) % RDW 18.7 H (11.5-15.5) % Neutrophils # 15.5 H (1.3-7.7) k/uL Lymphocytes # 0.7 L (1.0-4.8) k/uL Sodium (137-145) mmol/L BUN (9-20) mg/dL Creatinine (0.66-1.25) mg/dL Glucose (74-99) mg/dL POC Glucose (mg/dL) 168 H 226 H (75-99) mg/dL Hemoglobin A1c (4.2-6.1) % Alkaline Phosphatase (38-126) U/L Total Protein (6.3-8.2) g/dL Albumin (3.5-5.0) g/dL Amylase (30-110) U/L 12/21/16 12/21/16 Range/Units 06:15 07:29 WBC (3.8-10.6) k/uL RBC (4.30-5.90) m/uL Hgb (13.0-17.5) gm/dL Hct (39.0-53.0) % RDW (11.5-15.5) % Neutrophils # (1.3-7.7) k/uL Lymphocytes # (1.0-4.8) k/uL Sodium 133 L (137-145) mmol/L BUN 8 L (9-20) mg/dL Creatinine 0.60 L (0.66-1.25) mg/dL Glucose 185 H (74-99) mg/dL POC Glucose (mg/dL) 201 H (75-99) mg/dL Hemoglobin A1c (4.2-6.1) % Alkaline Phosphatase 219 H (38-126) U/L Total Protein 6.0 L (6.3-8.2) g/dL Albumin 2.6 L (3.5-5.0) g/dL Amylase (30-110) U/L Microbiology - Last 24 Hours (Table) 12/20/16 11:14 Urine Culture - Preliminary Urine,Voided Chest x-ray: report reviewed CT scan - abdomen: report reviewed CT scan - pelvis: report reviewed Assessment and Plan (1) Abdominal pain Narrative/Plan: This is of new onset, with progression over the last 2 weeks leading to this admission. The etiology is not immediately clear. The patient does have known liver metastasis. His recent CAT scans not appear to show any specific changes or progression. No new lesions or fluid collection is noted in the abdomen either. There is no evidence of any hemorrhage. Liver enzymes have not shown any significant change. Currently the patient's pain is reasonably controlled with Dilaudid as long as he does not move around too much. CAT scan incidentally showed an aortic aneurysm with a possibility of ulcerated plaque. I will check a Doppler to rule out any leak, and also consult thoracic surgery to evaluate this as a possible cause. Other possibilities include progression of the cancer in the peritoneum, which may not be visible on CT scans. Shingles were also present in this way, with the sometimes the pain occurring several days before the rash becomes apparent. If a vascular cause can be ruled out, I will discuss with surgery about further workup to try to determine the etiology. The patient did have a possible UTI, but the abdominal pain has not really changed with treatment for the same. Therefore this appears to be less likely to be the cause Status: Acute (2) Metastatic adenocarcinoma Narrative/Plan: Chemotherapy is currently on hold, to the acute situation can be controlled. Blood counts are satisfactory. Continue to monitor. Status: Acute
[2016-12-21 11:07] LABS: Glucose,Whole Blood 254 mg/dL (75-99)
[2016-12-21] MEDS ORDERED: MULTIVITAMINS, THERA 1 EACH TAB PO SCH (12:00)
--- NOTE | 2016-12-21 12:33 | US ---
EXAMINATION TYPE: US duplex aorta DATE OF EXAM: 12/21/2016 COMPARISON: Previous 12/17/2016 the aneurysm measured 4.[address] cm[address] On a previous CT dated 03/13/2016 dated 02/[address] scan of the chest, abdomen and pelvis from yesterday. CLINICAL HISTORY: AAA. Possible ulcer/leak, Abdominal pain. EXAM MEASUREMENTS: Abdominal Aorta: Proximal: 2.4 x 2.8 cm Mid: 2.1 x 2.9 cm Distal: 1.7 x 2.1 cm Bifurcation: Right- 1.3 x 1.6 cm Left- 1.3 x 1.4 cm Suboptimal visualization due to overlying bowel gas AAA seen in mid/distal region with internal echogenic debris = 4.7 x 4.6 x 5.7 cm. Suboptimal visual ization due to bowel gas. No free fluid seen. The patient's CT from yesterday showed maximal transverse diameter of the aneurysm to the 5.[address] cm[address] On a previous CT dated 12/17/2016,the aneurysm measured 4.7 cm. On a previous CT dated 03/13/2016 the aneur ysm measured 4.7 cm. 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 Both lumen opacified . IMPRESSION: SLOWLY ENLARGING INFRARENAL ABDOMINAL AORTIC ANEURYSM.
[2016-12-21] MEDS: HYDROcodone/APAP 15 ML SOLUTION PEG/G-TUBE PRN (12:49)
--- NOTE | 2016-12-21 15:33 | CONS ---
DATE OF CONSULTATION: 12/21/2016 This is a 71-year-old pleasant gentleman who is known to me from the past from the office with history of aortic aneurysm. The patient has a history of gastric cancer with liver mets under care for oncology. Patient has discomfort and pain for the last 2 weeks and most of the right lower quadrant. The patient had a CT scan, which showed infected abdominal aortic aneurysm which was 4.7 dated 12/17/[address] scan done today which showed a 5.5 cm infrarenal abdominal aortic aneurysm with chronic dissection. The patient has a pain mostly in the right lower quadrant. According the patient, his pain is 10/10. No nausea, vomiting. MEDICAL HISTORY: History of hypertension, history of CA of the stomach with liver mets and the patient has is under care of Dr. Millan for chemotherapy. EXAMINATION: Patient was seen in his room. His vital signs are stable. NECK: Supple. No bruit appreciated. CHEST: Clear to auscultation. First and second sounds normal. Abdomen is soft, but tenderness in the right lower quadrant. Patient has a gastrostomy tube. Vascular examination: Brachial, radial and femoral pulses are present. IMPRESSION: Infrarenal aortic aneurysm which is expanding from 4.7 to 5.5. PLAN: Patient will need aortic stent graft. We will discuss with Wan Flores. Patient will be transferred. I discussed with Dr. Mason and with Dr. More. They agree. Patient wants to be done everything at this point. Thank you very much. MMODL / IJN: [id number] / PETRA
--- NOTE | 2016-12-21 16:04 | P.DS ---
Providers Date of admission: 12/20/16 11:56 Attending physician: Kris Her Consults: 12/20/16 11:56 Consult Physician Urgent Consulting Provider: Srinivas Millan Consult Reason/Comments: abdominal pain Do you want consulting provider notified?: Yes 12/21/16 10:15 Consult Physician Routine Consulting Provider: Minesh Winter Consult Reason/Comments: AAA with ulcer, abd pain. ? leak Do you want consulting provider notified?: Yes Primary care physician: Kris Her Hospital Course: This 71-year-old gentleman with a past medical history multiple medical problems including history of esophageal carcinoma had a PEG tube placement. Patient is admitted abdominal pain. Abdominal pain was located in the low part of the abdomen and radiate to the back also. Patient had 2 CAT scans of. The most recent CAT scan showed abdominal aortic aneurysm with evolution from 4.6 mm. In the most recent the CAT scan showed aneurysm of 5.4 indicating a significant elevation of abdominal aneurysm. Infrarenal aortic Also showed a dissection which was thought to be chronic in nature. Patient was evaluated by Dr. Winter the vascular surgeon. The patient be referred transferred to tertiary care center in a stable condition With guarded prognosis with above- mentioned medical problems. Stent grafting as an option per Dr. Winter. He will be be transferred to [facility] for Dr. Winter's recommendations. Total time taken 35 minutes. On exam vitals stable. Cardio system S1-S2 normal. Chest is clear to auscultation. Abdomen soft obese and diffuse tenderness. No guarding or rigidity. Final diagnoses 1. Intractable abdominal pain with the failure of outpatient treatment possibly secondary to abdominal aneurysm. 2. Abdominal aneurysm with the significant evolution. 3. Possible chronic Dissection. 4. History of recent esophageal carcinoma status post of chemotherapy is less PEG tube placement. 5. Increased WBC. 6. Anemia normocytic anemia of malignancy 7. Hyponatremia 8. Hypertension 89. History of DJD 10. History of chronic back pain 11. History of prostate cancer 4. History of anxiety depression. Patient Condition at Discharge: Stable Plan - Discharge Summary New Discharge Prescriptions: No Action Sertraline [Zoloft] 100 mg PO DAILY Metoprolol Tartrate [Lopressor] 25 mg PO DAILY Gabapentin [Neurontin] 400 mg PO BID Amitriptyline HCl [Elavil] 25 mg PO HS PRN PRN Reason: anxiety/sleep Multivitamins, Thera [Multivitamin (formulary)] 1 tab PO DAILY Mometasone Furoate [Mometasone Furoate 0.1%] 1 applic BOTH EARS DAILY PRN PRN Reason: itchy ears Ciprofloxacin HCl [Cipro] 500 mg PO Q12HR 7 Days HYDROcodone/APAP 10-325MG [[place] 10-325] 1 tab PO Q6H PRN #20 tab PRN Reason: Pain Discharge Medication List Amitriptyline HCl [Elavil] 25 mg PO HS PRN 05/12/14 [History] Gabapentin [Neurontin] 400 mg PO BID 05/12/14 [History] Metoprolol Tartrate [Lopressor] 25 mg PO DAILY 05/12/14 [History] Sertraline [Zoloft] 100 mg PO DAILY 05/12/14 [History] Mometasone Furoate [Mometasone Furoate 0.1%] 1 applic BOTH EARS DAILY PRN [History] Multivitamins, Thera [Multivitamin (formulary)] 1 tab PO DAILY 07/21/16 [History ] Ciprofloxacin HCl [Cipro] 500 mg PO Q12HR 7 Days 12/17/16 [Rx] HYDROcodone/APAP 10-325MG [[place] 10-325] 1 tab PO Q6H PRN #20 tab 12/17/16 [Rx] Follow up Appointment(s)/Referral(s): Kris Her MD [Primary Care Provider] - 1-2 days
[2016-12-21 16:25] VITALS: BP 120/63; PULSE 67; TEMP 98.4
== END 2016-12-21 17:38 | disposition short-term general hospital (02) | DRG 300 ==
LOC: EC 09:19 → 5ONC 11:56
PROVIDERS: ADMIT Family Medicine; ATTEND Family Medicine
DX: I71.4 Abdominal aortic aneurysm, without rupture (principal); C16.9 Malignant neoplasm of stomach, unspecified; C78.7 Secondary malignant neoplasm of liver and intrahepatic bile duct; D63.0 Anemia in neoplastic disease; E87.1 Hypo-osmolality and hyponatremia; R13.10 Dysphagia, unspecified; Z93.1 Gastrostomy status; I10 Essential (primary) hypertension; E66.9 Obesity, unspecified; I25.10 Atherosclerotic heart disease of native coronary artery without angina pectoris; R62.7 Adult failure to thrive; Z79.899 Other long term (current) drug therapy; Z82.3 Family history of stroke; Z85.01 Personal history of malignant neoplasm of esophagus; Z85.46 Personal history of malignant neoplasm of prostate; Z87.891 Personal history of nicotine dependence; Z88.1 Allergy status to other antibiotic agents; F32.9 Major depressive disorder, single episode, unspecified
CPT/HCPCS: 36415; 71020; 71260; 74177; 80053; 81003; 82150; 83036; 83690; 85025; 85610; 85730; 87040; 87086; 93979; 96361; 96374; 99285

== ENCOUNTER → 2017-01-22 | Outpatient (CLI) | payer MEDICARE, BC ==
--- NOTE | 2017-01-23 08:04 | ECHOF ---
Referral Reason:C16.1 Gastric Ca Z01.818 Pre chemo MEASUREMENTS -------- HEIGHT: 188.0 cm WEIGHT: 102.1 kg BP: 125/75 RVIDd: 4.3 cm (< 3.3) IVSd: 1.5 cm (0.6 - 1.1) LVIDd: 4.6 cm (3.9 - 5.3) LVPWd: 1.5 cm (0.6 - 1.1) IVSs: 1.8 cm LVIDs: 4.0 cm LVPWs: 1.5 cm LA Diam: 3.3 cm (2.7 - 3.8) LAESV Index (A-L): 19.66 ml/m Ao Diam: 4.8 cm (2.0 - 3.7) AV Cusp: 3.0 cm (1.5 - 2.6) MV EXCURSION: 14.924 mm (> 18.000) MV EF SLOPE: 94 mm/s (70 - 150) EPSS: 1.4 cm MV E Chandra: 0.71 m/s MV DecT: 136 ms MV A Chandra: 0.82 m/s MV E/A Ratio: 0.87 FINDINGS -------- Sinus rhythm. This was a technically good study. The left ventricular size is normal. There is moderate concentric left ventricular hypertrophy. Overall left ventricular systolic function is low-normal with, an EF between 50 - 55 %. Basal inferior LV wall motion is hypokinetic. Basal inferoseptal LV wall motion is hypokinetic. The right ventricle is severely enlarged. Normal LA size by volume 22+/-6 ml/m2. The right atrium is normal in size. There is mild aortic valve sclerosis. Trace to mild aortic regurgitation. Mild mitral regurgitation is present. Trace tricuspid regurgitation present. The pulmonic valve was not well visualized. The aortic root is dilated measuring 4.8cm. The pericardium is normal. CONCLUSIONS -------- 1. Sinus rhythm. 2. The right atrium is normal in size. 3. There is mild aortic valve sclerosis. 4. Trace to mild aortic regurgitation. 5. Mild mitral regurgitation is present. 6. Trace tricuspid regurgitation present. 7. The pulmonic valve was not well visualized. 8. The aortic root is dilated measuring 4.8cm. 9. The pericardium is normal. 10. This was a technically good study. 11. The left ventricular size is normal. 12. There is moderate concentric left ventricular hypertrophy. 13. Overall left ventricular systolic function is low-normal with, an EF between 50 - 55 %. 14. Basal inferior LV wall motion is hypokinetic. 15. Basal inferoseptal LV wall motion is hypokinetic. 16. The right ventricle is severely enlarged. [place] is hypokinetic 17. Normal LA size by volume 22+/-6 ml/m2. ENGRAVER TIRE MOLD: Sheyla James RDCS
== END | disposition home or self-care (01) ==
LOC: RADECHMAIN 16:20
PROVIDERS: ATTEND Internal Medicine Hematology & Oncology
DX: C16.1 Malignant neoplasm of fundus of stomach (principal); I08.3 Combined rheumatic disorders of mitral, aortic and tricuspid valves
CPT/HCPCS: 93306

== ENCOUNTER 2017-02-12 10:11 | Inpatient (IN) | payer MEDICARE, BC ==
[2017-02-12] MEDS ORDERED: HYDROmorphone 2 MG/ML 1 ML SYRINGE IVP PRN (12:08)
[2017-02-12] MEDS ORDERED: RX INFO: IV CONTRAST WAS GIVEN 1 EACH MISC MISCELLANE PRN (12:18)
[2017-02-12] MEDS: SODIUM CHLORIDE 0.9% 1,000 ML IV SCH ×2 (12:38→13:14)
[2017-02-12] MEDS: IOHEXOL 350 MG/ML 25 ML BOTTLE (ORAL USE) PO PRN ×2 (12:39→13:45)
[2017-02-12 14:48] VITALS: BMI 26.9
--- NOTE | 2017-02-12 15:13 | CT ---
EXAMINATION TYPE: CT abdomen pelvis w con DATE OF EXAM: 02/12/2017 COMPARISON: Prior CT 12/20/2016 HISTORY: Pain, gastric CA CT DLP: 1853 mGycm Automated exposure control for dose reduction was used. TECHNIQUE: Helical acquisition of images from the lung bases through the pelvis have been completed. CONTRAST: Performed with Oral Contrast and with IV Contrast, patient injected with 100 mL of Omnipaque 300. FINDINGS: LUNG BASES: Some basilar atelectatic changes are suspected on the right, calcification present in the right hilar region. Coronary calcifications are present. AORTA: Infrarenal abdominal aortic aneurysm measures 5.1 cm probable associated ulcer. Ascending aor ta also aneurysmal at 4.6 cm. LIVER/GB: The number and size of the hepatic lesions has increased in the interval. PANCREAS: No significant abnormality is seen. SPLEEN: Similar findings, there are calcifications compatible with old granulomatous disease, spleen is enlarged and there is likely a splenic cyst which is stable and fairly ADRENALS: No significant abnormality is seen. KIDNEYS: Stable appearance, multiple cystic foci again noted, nonobstructive renal calculus seen at t he lower pole of the left kidney on prior exam is no longer seen REPRODUCTIVE ORGANS: No interval change, surgical clips are noted likely post prostatectomy BOWEL: No significant abnormality is seen. PEG tube remains in place. Abdominal wall seroma again no miriam. FREE AIR: No Free Air visible. ASCITES: None visible. PELVIC ADENOPATHY: None visualized. RETROPERITONEAL ADENOPATHY: No Retroperitoneal Adenopathy visible. 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 HEPATOSPLENOMEGALY. POSTOP CHANGES. THORACI C AND ABDOMINAL AORTIC ANEURYSM.
[2017-02-12] MEDS ORDERED: AMITRIPTYLINE HCL 25 MG TAB PO PRN (16:56)
[2017-02-12] MEDS ORDERED: TRIAMCINOLONE 0.1% CREAM 80 GM TUBE TOPICAL PRN (16:56)
[2017-02-12] MEDS ORDERED: PROCHLORPERAZINE 10 MG TAB PO PRN (16:56)
[2017-02-12] MEDS ORDERED: HYDROmorphone 0.5 MG/0.5 ML SYRINGE IVP PRN (17:01)
[2017-02-12 17:51] LABS: CH 28.7; CHCM 29.4; HCT 29.1 % (39.0-53.0); HDW 2.48; HGB 8.4 gm/dL (13.0-17.5); Hypochromasia Marked; INR 1.3 (<1.2); MCH 28.1 pg (25.0-35.0); MCHC 28.8 g/dL (31.0-37.0); MCV 97.6 fL (80.0-100.0); Mean Platelet Volume 8.5; Prothrombin Time 12.4 sec (9.0-12.0); RBC 2.98 m/uL (4.30-5.90); RDW 15.4 % (11.5-15.5); WBC (Perox) 31.12
[2017-02-12 17:53] LABS: WBC 31.2 k/uL (3.8-10.6)
[2017-02-12 17:59] LABS: ALT 33 U/L (21-72); AST 25 U/L (17-59); Alkaline Phosphatase 441 U/L (38-126); Amylase <30 U/L (30-110); Anion Gap 8 mmol/L; Blood Urea Nitrogen 15 mg/dL (9-20); Calcium 8.6 mg/dL (8.4-10.2); Carbon Dioxide 26 mmol/L (22-30); Chloride 96 mmol/L (98-107); Glucose 288 mg/dL (74-99); Magnesium 1.8 mg/dL (1.6-2.3); Non-African American GFR(MDRD) >60 (>60 ml/min/1.73 sqM); Potassium 5.2 mmol/L (3.5-5.1); Sodium 130 mmol/L (137-145); Total Bilirubin 0.4 mg/dL (0.2-1.3); Total Protein 5.4 g/dL (6.3-8.2)
--- NOTE | 2017-02-12 17:59 | HP ---
HISTORY AND PHYSICAL DATE OF SERVICE: 02/12/2017. CHIEF COMPLAINT: Abdominal pain. HISTORY OF PRESENT ILLNESS: This 71-year-old gentleman with a past history of multiple medical problems including history of carcinoma with METS, history of abdominal aortic aneurysm, history of hyponatremia, hypertension, being followed by Dr. Kris Her in the outpatient setting was recently admitted to [facility] with abdominal pain and the patient was found to have aortic aneurysm with suspicion of dissection. Patient was transferred to [facility] and apparently no active procedure was done and patient went home and currently patient complaining of severe abdominal pain which is in the anterior part of the chest, history of bandlike sensation going to the back. The patient was seen in Dr. Millan's office and Dr. Millan directed the patient with increase in dose of and the patient being closely monitored at this time. There is no history of any fever, rigors, or chills. No history of headache, loss of consciousness or seizures. The patient is on gabapentin. The patient was on Cipro also. There is no history of fever, rigors. No history of any headache, loss of consciousness, seizures. Otherwise, basic labs are not available at this time. PAST MEDICAL HISTORY: History of carcinoma, history of abdominal aortic aneurysm, history of anemia, hypertension, hyperlipidemia, history of degenerative joint disease. MEDICATIONS: Prior to admission home medications are reviewed and include: 1. Fentanyl patch 50 mg q.72h hours. 2. Zoloft 100 mg. 3. Compazine 10 mg q.6h p.r.n. 4. Mometasone. 5. Lopressor 25 mg b.i.d. 6. Megace 8 mg. 7. Lesage 10 mg q.6h p.r.n. 8. Neurontin 400 mg p.o. daily. 9. Cipro 500 mg daily. 10.Xeloda 2 tablets p.o. b.i.d. 11.Elavil 25 mg q.h.s. p.r.n. ALLERGIES: CEPHALEXIN. FAMILY HISTORY: History of CVA, TIA and stroke in the family. SOCIAL HISTORY: No smoking and no history of alcohol. REVIEW OF SYSTEMS: ENT diminished vision and diminished hearing. Cardiovascular: S1, S2 muffled. Respirations: As mentioned earlier. : No dysuria or hematuria. Nervous system: No numbness or weakness. Allergy/Immunology: As mentioned earlier. Hematology/Oncology: As mentioned earlier. Musculoskeletal: As mentioned earlier. Endocrine: History of diabetes. Constitutional: As mentioned earlier. Dermatology: Negative. Rheumatology: Negative. Psychiatric: As mentioned earlier. PHYSICAL EXAMINATION: The patient is alert and oriented times three. Pulse 75, blood pressure 96/50, respiration 18, temperature 97.6, pulse ox 98% on room air. HEENT: Conjunctivae normal. Oral mucosa moist. Neck is no jugular venous distention. No carotid bruit. No lymph node enlargement. Cardiovascular S1, S2 muffled. No S3, no S4. Respirations: Breath sounds diminished in the bases. No rhonchi and no crackles. ABDOMEN: Soft, mild diffuse tenderness present in the epigastrium. No mass palpable. Legs are no edema. No swelling. central nervous system: Higher functions as mentioned earlier. Moves all four limbs. No focal motor deficits. Lymphatics: No lymph nodes palpable in the neck, axillae or groin. Skin: no ulcer, rash or bleeding. LABS: Not available at this time. ASSESSMENT: 1. Severe epigastric and abdominal pain possibly secondary to metastatic malignancy, esophageal gastric cancer. 2. Aortic abdominal aneurysm with chronic dissection recently evaluated in [facility] with no intervention. 3. Hypertension. 4. History of degenerative joint disease. 5. Recurrent urinary tract infection. 6. Anxiety and depression. 7. Chronic back pain. 8. History of prostate cancer. 9. History of hypertension. 10.Recommendation. 11.NO CODE, NO CPR, AND NO VENT. RECOMMENDATIONS AND DISCUSSION: This 71-year-old gentleman who presented with multiple complex medical issues, will monitor the patient closely, continue the current management and symptomatic treatment. The pain patch Fentanyl has been increased to [address] Millan, I would recommend hydromorphone and as well as p.r.n. and as well as DVT prophylaxis. Continue the rest of the home medications. I also had detailed discussions with the daughter who is awaiting the CT scan of the abdomen and pelvis. CAT scan of the abdomen and pelvis was done this morning which is reported as showing progression of the patient's mental status, metastatic to the liver hepatosplenomegaly, possibly changes. Once again, the prognosis extremely guarded because of multiple complex medical issues. We will follow the patient closely with Hematology/Oncology. Currently the patient is NO CODE. Further recommendations to follow. MMODL / IJN: [id number] / MTDJd
[2017-02-12 18:28] LABS: Add Differential Manual Differential
[2017-02-12 18:29] LABS: Band Neutrophils % 1 %; Nucleated Red Blood Cells 0 /100 WBC (0-0); Polychromasia Present; Total Cells Counted 100
[2017-02-12] MEDS: HYDROcodone/APAP 10-325MG 1 EACH TAB PO PRN (20:45)
[2017-02-12] MEDS: PANTOPRAZOLE 40 MG/10 ML VIAL IVP SCH (20:48)
[2017-02-12] MEDS: HEPARIN SODIUM,PORCINE 5,000 UNIT/ML 1 ML VIAL SQ SCH (20:49)
[2017-02-12 20:57] LABS: Appearance,Urine Clear (Clear); Bilirubin,Urine Negative (Negative); Glucose,Urine (UA) Negative (Negative); Ketones,Urine Negative (Negative); Leukocyte Esterase,Urine Negative (Negative); Nitrite,Urine Negative (Negative); Particle Count 4109; Protein,Urine 1+ (Negative); RBC,Urine 2 /hpf (0-5); UA Billing (MACRO vs. MICRO) MICRO; WBC,Urine 2 /hpf (0-5)
[2017-02-12] MEDS: LEVOFLOXACIN 500MG-D5W PMX 500 MG in DEXTROSE/WATER 1 100ML.BAG IVPB SCH (21:00)
[2017-02-13] MEDS: SODIUM CHLORIDE 0.9% 1,000 ML IV SCH ×3 (06:04→17:59)
[2017-02-13 06:43] LABS: Anisocytosis Slight; Basophils % (A) 0 %; CH 28.3; CHCM 29.7; Eosinophils % (A) 0 %; HCT 26.4 % (39.0-53.0); HDW 2.32; HGB 7.9 gm/dL (13.0-17.5); Hypochromasia Marked; Luc % (Auto) 1; Lymphocytes # (A) 0.7 k/uL (1.0-4.8); Lymphocytes % (A) 3 %; MCH 28.5 pg (25.0-35.0); MCHC 29.8 g/dL (31.0-37.0); MCV 95.5 fL (80.0-100.0); Mean Platelet Volume 9.6; Monocytes # (A) 0.8 k/uL (0-1.0); Monocytes % (A) 3 %; Neutrophils # (A) 24.9 k/uL (1.3-7.7); Neutrophils % (A) 93 %; RBC 2.76 m/uL (4.30-5.90); RDW 16.7 % (11.5-15.5); WBC (Perox) 29.02
[2017-02-13 07:01] LABS: Anion Gap 5 mmol/L; Blood Urea Nitrogen 12 mg/dL (9-20); Calcium 8.3 mg/dL (8.4-10.2); Carbon Dioxide 25 mmol/L (22-30); Chloride 100 mmol/L (98-107); Cholesterol 59 mg/dL (<200); Glucose 202 mg/dL (74-99); HDL Cholesterol 17 mg/dL (40-60); Non-African American GFR(MDRD) >60 (>60 ml/min/1.73 sqM); Potassium 4.5 mmol/L (3.5-5.1); Sodium 130 mmol/L (137-145)
[2017-02-13 07:15] LABS: WBC 26.7 k/uL (3.8-10.6)
[2017-02-13] MEDS: HEPARIN SODIUM,PORCINE 5,000 UNIT/ML 1 ML VIAL SQ SCH ×2 (08:45→20:24)
[2017-02-13] MEDS: PANTOPRAZOLE 40 MG/10 ML VIAL IVP SCH ×2 (08:45→20:23)
[2017-02-13] MEDS: SERTRALINE 100 MG TAB PO SCH (08:45)
[2017-02-13] MEDS: GABAPENTIN 400 MG CAP PO SCH (08:45)
[2017-02-13] MEDS: MEGESTROL 400 MG/10 ML CUP PO SCH (08:45)
[2017-02-13] MEDS: METOPROLOL TARTRATE 25 MG TAB PO SCH (08:45)
[2017-02-13] MEDS: HYDROcodone/APAP 10-325MG 1 EACH TAB PO PRN (08:59)
--- NOTE | 2017-02-13 12:15 | P.PN ---
Subjective 71-year-old gentleman with history of gastric and esophageal cancer metastatic disease given with abdominal pain secondary to cancer patient is probably with pain patient is being treated for urinary tract infection with levofloxacin. And the patient does have leukocytosis patient the is more appropriate for hospice and thing was discussed with the patient.. Patient will be followed by oncology and they will discuss regarding further options. Constitutional: Denied any fatigue denied any fever. Cardio vascular: denied any chest pain, palpitations Gastrointestinal denied any nausea vomiting Pulmonary: Denied any shortness of breath cough Neurologic denied any new focal deficits Objective - Vital Signs Vital signs: Vital Signs Temp 99.1 F 02/13/17 07:00 Pulse 89 02/13/17 07:00 Resp 16 02/13/17 07:00 BP 112/65 02/13/17 07:00 Pulse Ox 96 02/13/17 07:00 Intake & Output 02/12/17 02/13/17 02/13/17 18:59 06:59 18:59 Intake Total 2240 Output Total 250 Balance 1989 Weight 92.5 kg 92.5 kg Intake: Intake, IV Titration 1650 Amount Sodium Chloride 0.9% 1, 1650 000 ml @ 150 mls/hr IV . Q6H40M [facility] Rx#:[id number] Oral 590 Output: Urine 250 Other: Voiding Method Toilet Toilet Toilet Urinal Urinal # Voids 1 - Exam PHYSICAL EXAMINATION: GENERAL: The patient is alert and oriented x3, not in any acute distress. Well developed, well nourished. HEENT: Pupils are round and equally reacting to light. EOMI. No scleral icterus. No conjunctival pallor. Normocephalic, atraumatic. No pharyngeal erythema. No thyromegaly. CARDIOVASCULAR: S1 and S2 present. No murmurs, rubs, or gallops. PULMONARY: Chest is clear to auscultation, no wheezing or crackles. ABDOMEN: Soft, minimal suprapubic tenderness was appreciated no rebound or rigidity., nondistended, normoactive bowel sounds. No palpable organomegaly. MUSCULOSKELETAL: No joint swelling or deformity. EXTREMITIES: No cyanosis, clubbing, or pedal edema. NEUROLOGICAL: Gross neurological examination did not reveal any focal deficits. SKIN: No rashes. - Labs CBC & Chem 7: 02/13/17 06:35 02/13/17 06:35 Labs: Abnormal Lab Results - Last 24 Hours (Table) 02/12/17 02/12/17 02/12/17 Range/Units 17:21 17:21 17:21 WBC 31.2 H* (3.8-10.6) k/uL RBC 2.98 L (4.30-5.90) m/uL Hgb 8.4 L (13.0-17.5) gm/dL Hct 29.1 L (39.0-53.0) % MCHC 28.8 L (31.0-37.0) g/dL RDW (11.5-15.5) % Neutrophils # (1.3-7.7) k/uL Neutrophils # (Manual) 27.40 H (1.3-7.7) k/uL Lymphocytes # (1.0-4.8) k/uL Monocytes # (Manual) 1.56 H (0-1.0) k/uL PT 12.4 H (9.0-12.0) sec INR 1.3 H (<1.2) Sodium 130 L (137-145) mmol/L Potassium 5.2 H (3.5-5.1) mmol/L Chloride 96 L (98-107) mmol/L Creatinine 0.60 L (0.66-1.25) mg/dL Glucose 288 H (74-99) mg/dL Calcium (8.4-10.2) mg/dL Alkaline Phosphatase 441 H (38-126) U/L Total Protein 5.4 L (6.3-8.2) g/dL Albumin 2.2 L (3.5-5.0) g/dL HDL Cholesterol (40-60) mg/dL Amylase <30 L (30-110) U/L Ur Specific Guild (1.001-1.035) Urine Protein (Negative) 02/12/17 02/13/17 02/13/17 Range/Units 20:40 06:35 06:35 WBC 26.7 H* (3.8-10.6) k/uL RBC 2.76 L (4.30-5.90) m/uL Hgb 7.9 L (13.0-17.5) gm/dL Hct 26.4 L (39.0-53.0) % MCHC 29.8 L (31.0-37.0) g/dL RDW 16.7 H (11.5-15.5) % Neutrophils # 24.9 H (1.3-7.7) k/uL Neutrophils # (Manual) (1.3-7.7) k/uL Lymphocytes # 0.7 L (1.0-4.8) k/uL Monocytes # (Manual) (0-1.0) k/uL PT (9.0-12.0) sec INR (<1.2) Sodium 130 L (137-145) mmol/L Potassium (3.5-5.1) mmol/L Chloride (98-107) mmol/L Creatinine 0.65 L (0.66-1.25) mg/dL Glucose 202 H (74-99) mg/dL Calcium 8.3 L (8.4-10.2) mg/dL Alkaline Phosphatase (38-126) U/L Total Protein (6.3-8.2) g/dL Albumin (3.5-5.0) g/dL HDL Cholesterol 17 L (40-60) mg/dL Amylase (30-110) U/L Ur Specific Guild 1.050 H (1.001-1.035) Urine Protein 1+ H (Negative) Microbiology - Last 24 Hours (Table) 02/12/17 20:40 Urine Culture - Preliminary Urine,Voided Assessment and Plan Plan: #1 abdominal pain: Secondary to metastatic cancer, patient had gastric cancer with metastasis. Further management as mentioned above patient will be on pain management with fentanyl and hydromorphone. #2 urinary tract infection cannot be ruled out patient does have super pubic pain. Patient is on levofloxacin at this time. #3 leukocytosis can be reactive or secondary to urinary tract infection #4 hypertension #5 metastatic esophageal and gastric cancers. #6 chronic low back pain. Plan as mentioned in the interval history.
[2017-02-13] MEDS ORDERED: MORPHINE SULFATE 10 MG/ML SYRINGE IVP PRN (16:14)
[2017-02-13] MEDS: LEVOFLOXACIN 500MG-D5W PMX 500 MG in DEXTROSE/WATER 1 100ML.BAG IVPB SCH (17:55)
--- NOTE | 2017-02-13 18:13 | P.CONS ---
History of Present Illness - Reason for Consult Consult date: 02/13/17 - History of Present Illness the patient is a 71-year-old male, well known to our service. He is followed by Dr. Millan in the outpatient setting. he was initially seen in due to complains of decreased appetite, early satiety and abdominal pain on eating, causing nausea and occasional vomiting. Symptoms had been progressive over the last 3-4 months and he had lost almost [address] scan of the abdomen and pelvisin 08/27 revealed evidence of multiple liver lesions consistent with metastatic disease. The patient had an EGD in 09/27, revealing an ulcerated mass at the GE junction that was a mixed squamous and adeno- carcinoma. Liver biopsy was positive for adenocarcinoma consistent with upper GI primary. The patient was started on treatment with carboplatin and Taxol weekly, with Herceptin subsequently added as the tumor was HER-2 positive. He initially had a partial response. e was admitted in 12/28 with increasing abdominal pain. CT scan showed progression of disease. He also was noted to have progression of an abdominal aortic aneurysm. He was transferred to [facility] but was not felt to be a surgical candidate. Post discharge, he has declined with increasing abdominal pain, progressive weakness and decreased appetite. He was seen in the office on 02/12/17. He was quite weak, clinically dehydrated, with uncontrolled pain. He was therefo the hospitalthat he transition over to hospice subsequently. Review of Systems Constitutional: Reports chronic pain, Reports fatigue, Reports poor appetite, Reports weakness, Reports weight loss Eyes: denies blurred vision, denies pain Ears: deny: decreased hearing, ear discharge, earache, tinnitus Ears, nose, mouth and throat: Denies headache, Denies sore throat Cardiovascular: Reports decreased exercise tolerance Respiratory: Denies cough Gastrointestinal: Reports abdominal pain Genitourinary: Reports as per HPI, Reports urinary frequency Musculoskeletal: Reports muscle weakness Integumentary: Denies pruritus, Denies rash Neurological: Reports weakness Psychiatric: Denies anxiety, Denies depression Endocrine: Reports fatigue, Reports weight change Hematologic/Lymphatic: Reports as per HPI Past Medical History Past Medical History: Cancer, Hypertension, Osteoarthritis (OA) Additional Past Medical History / Comment(s): Current UTI and is in the middle of his antibiotics for this, CHRONIC BACK PAIN, prostate cancer in 1995 HAD SX And radiation-pt incont of urine wears a pad.hepatitis as child. aaa pt unsure of size, "borderline dm- no meds and does'nt check blood sugars, September 2016 dx esophageal ca with mets to liver currently receiving oral chemotherapy and once a month IV chemotherapy, recently discovered mass in stomach, has peg tube. History of Any Multi-Drug Resistant Organisms: None Reported Past Surgical History: Hernia Repair, Prostate Surgery Additional Past Surgical History / Comment(s): Peg tube insertion, UMBILICAL AND INGUINAL HERNIA, surgery for nose bleeds, egd w/ bx, liver bx, prostatectomy Past Anesthesia/Blood Transfusion Reactions: No Reported Reaction Smoking Status: Former smoker - Past Family History Mother Family Medical History: CVA/TIA Additional Family Medical History / Comment(s): mom from a stroke when pt was 4 years old. Father Family Medical History: No Reported History Medications and Allergies Home Medications Medication Instructions Recorded Confirmed Type Amitriptyline HCl [Elavil] 25 mg PO HS PRN 05/12/14 02/12/17 History Gabapentin [Neurontin] 400 mg PO DAILY 05/12/14 02/12/17 History Metoprolol Tartrate [Lopressor] 25 mg PO DAILY 05/12/14 02/12/17 History Sertraline [Zoloft] 100 mg PO DAILY 05/12/14 02/12/17 History Mometasone Furoate [Mometasone 1 applic BOTH EARS DAILY PRN 07/21/16 02/12/17 History Furoate 0.1%] HYDROcodone/APAP 10-325MG [[place] 1 tab PO Q6H PRN #20 tab 12/17/16 02/12/17 Rx 10-325] Capecitabine [Xeloda] 2 tab PO BID 02/12/17 02/12/17 History Ciprofloxacin HCl [Cipro] 500 mg PO BID 02/12/17 02/12/17 History Megestrol [Megace] 800 mg PO DAILY 02/12/17 02/12/17 History Prochlorperazine [Compazine] 10 mg PO Q6H PRN 02/12/17 02/12/17 History fentaNYL 50MCG/HR PATCH [Durages[place] 1 patch TRANSDERM Q72H 02/12/17 02/12/17 History 50MCG/HR] Allergies Allergy/AdvReac Type Severity Reaction Status Date / Time cephalexin [From Keflex] Allergy Rash/Hives Verified 02/12/17 12:27 Physical Exam Vitals: Vital Signs Temp Pulse Resp BP Pulse Ox 02/13/17 07:00 99.1 F 89 16 112/65 96 02/12/17 23:00 98.3 F 86 16 109/64 96 02/12/17 19:58 98.5 F 81 17 123/68 95 02/12/17 16:33 98.4 F 76 18 109/62 97 Intake and Output 02/12/17 02/13/17 02/13/17 22:59 06:59 14:59 Intake Total 450 1790 Output Total 50 200 Balance 400 1590 Intake: Intake, IV Titration 450 1200 Amount Sodium Chloride 0.9% 1, 450 1200 000 ml @ 150 mls/hr IV . Q6H40M [facility] Rx#:[id number] Oral 590 Output: Urine 50 200 Other: Voiding Method Toilet Toilet Toilet Urinal Urinal Weight 92.5 kg Patient Weight 02/14/17 06:59 Weight 92.5 kg - Constitutional General appearance: no acute distress - EENT Eyes: EOMI, PERRLA ENT: hearing grossly normal, normal oropharynx - Neck Neck: no lymphadenopathy Thyroid: bilateral: normal size - Respiratory Respiratory: bilateral: CTA - Cardiovascular Rhythm: regular Heart sounds: normal: S1, S2 - Gastrointestinal General gastrointestinal: normal bowel sounds, soft Localized gastrointestinal: tender: RUQ - Integumentary Integumentary: normal - Neurologic Neurologic: CNII-XII intact - Musculoskeletal Musculoskeletal: generalized weakness, strength equal bilaterally Results CBC & Chem 7: 02/13/17 06:35 02/13/17 06:35 Labs: Abnormal Lab Results - Last 24 Hours (Table) 02/12/17 02/12/17 02/12/17 Range/Units 17:21 17:21 17:21 WBC 31.2 H* (3.8-10.6) k/uL RBC 2.98 L (4.30-5.90) m/uL Hgb 8.4 L (13.0-17.5) gm/dL Hct 29.1 L (39.0-53.0) % MCHC 28.8 L (31.0-37.0) g/dL RDW (11.5-15.5) % Neutrophils # (1.3-7.7) k/uL Neutrophils # (Manual) 27.40 H (1.3-7.7) k/uL Lymphocytes # (1.0-4.8) k/uL Monocytes # (Manual) 1.56 H (0-1.0) k/uL PT 12.4 H (9.0-12.0) sec INR 1.3 H (<1.2) Sodium 130 L (137-145) mmol/L Potassium 5.2 H (3.5-5.1) mmol/L Chloride 96 L (98-107) mmol/L Creatinine 0.60 L (0.66-1.25) mg/dL Glucose 288 H (74-99) mg/dL Calcium (8.4-10.2) mg/dL Alkaline Phosphatase 441 H (38-126) U/L Total Protein 5.4 L (6.3-8.2) g/dL Albumin 2.2 L (3.5-5.0) g/dL HDL Cholesterol (40-60) mg/dL Amylase <30 L (30-110) U/L Ur Specific [place] (1.001-1.035) Urine Protein (Negative) 02/12/17 02/13/17 02/13/17 Range/Units 20:40 06:35 06:35 WBC 26.7 H* (3.8-10.6) k/uL RBC 2.76 L (4.30-5.90) m/uL Hgb 7.9 L (13.0-17.5) gm/dL Hct 26.4 L (39.0-53.0) % MCHC 29.8 L (31.0-37.0) g/dL RDW 16.7 H (11.5-15.5) % Neutrophils # 24.9 H (1.3-7.7) k/uL Neutrophils # (Manual) (1.3-7.7) k/uL Lymphocytes # 0.7 L (1.0-4.8) k/uL Monocytes # (Manual) (0-1.0) k/uL PT (9.0-12.0) sec INR (<1.2) Sodium 130 L (137-145) mmol/L Potassium (3.5-5.1) mmol/L Chloride (98-107) mmol/L Creatinine 0.65 L (0.66-1.25) mg/dL Glucose 202 H (74-99) mg/dL Calcium 8.3 L (8.4-10.2) mg/dL Alkaline Phosphatase (38-126) U/L Total Protein (6.3-8.2) g/dL Albumin (3.5-5.0) g/dL HDL Cholesterol 17 L (40-60) mg/dL Amylase (30-110) U/L Ur Specific [place] 1.050 H (1.001-1.035) Urine Protein 1+ H (Negative) Microbiology - Last 24 Hours (Table) 02/12/17 20:40 Urine Culture - Preliminary Urine,Voided Assessment and Plan (1) Intractable pain Narrative/Plan: This is mostly due to progression of malignancy. During his previous admission, there was concern regarding his AAA, though that was not ultimately felt to be surgical. Pain has not been well controlled on his home regimen. I will increase fentanyl to 100 g. 1 breakthrough medication will be utilized, to facilitate transition to the outpatient setting. [place] which she was getting at home, was not effective. This will be discontinued, along with IV Dilaudid. He will be placed on IV morphine for dose adjusted according to her response. Current Visit: Yes Status: Acute Code(s): R52 - PAIN, UNSPECIFIED SNOMED Code(s): 81964839 (2) Metastatic adenocarcinoma Narrative/Plan: he patient had progressive disease fairly soon after first-line treatment. Since then performance status is declined significantly. According to his recent assessment by Dr. Millan in in the office, he is not felt to be a candidate for active cancer treatment. Therefore comfort care has been recommended. I had a long discussion with the patient regarding the rationale behind the recommendation for comfort care. The logistics of comfort care/hospice were also discussed in detail. He is agreeable to hospice informational visit. Consult for the same will be placed. Case was also discussed in detail with the admitting service Current Visit: No Status: Acute Priority: High Code(s): C79.9 - SECONDARY MALIGNANT NEOPLASM OF UNSPECIFIED SITE SNOMED Code(s): 630779256
[2017-02-14 05:56] LABS: Anisocytosis Slight; Basophils % (A) 0 %; CH 28.3; CHCM 29.1; Eosinophils % (A) 0 %; HCT 27.6 % (39.0-53.0); HDW 2.35; HGB 8.2 gm/dL (13.0-17.5); Hypochromasia Marked; Luc # (Auto) 0.22; Luc % (Auto) 1; Lymphocytes # (A) 0.8 k/uL (1.0-4.8); Lymphocytes % (A) 3 %; MCHC 29.8 g/dL (31.0-37.0); MCV 97.3 fL (80.0-100.0); Macrocytosis Slight; Mean Platelet Volume 9.9; Monocytes # (A) 0.8 k/uL (0-1.0); Monocytes % (A) 3 %; Neutrophils # (A) 27.3 k/uL (1.3-7.7); Neutrophils % (A) 94 %; RBC 2.83 m/uL (4.30-5.90); RDW 16.9 % (11.5-15.5); WBC (Perox) 29.91
[2017-02-14 05:58] LABS: WBC 29.2 k/uL (3.8-10.6)
[2017-02-14 06:13] LABS: Anion Gap 7 mmol/L; Blood Urea Nitrogen 11 mg/dL (9-20); Calcium 8.3 mg/dL (8.4-10.2); Carbon Dioxide 23 mmol/L (22-30); Chloride 105 mmol/L (98-107); Glucose 216 mg/dL (74-99); Non-African American GFR(MDRD) >60 (>60 ml/min/1.73 sqM); Potassium 4.2 mmol/L (3.5-5.1); Sodium 135 mmol/L (137-145)
[2017-02-14] MEDS: SODIUM CHLORIDE 0.9% 1,000 ML IV SCH ×2 (08:05→09:06)
[2017-02-14 08:56] VITALS: BP 106/67; PULSE 69; RESP 12; TEMP 98.1
[2017-02-14] MEDS: METOPROLOL TARTRATE 25 MG TAB PO SCH (09:27)
[2017-02-14] MEDS: SERTRALINE 100 MG TAB PO SCH (09:27)
[2017-02-14] MEDS: GABAPENTIN 400 MG CAP PO SCH (09:27)
[2017-02-14] MEDS: MEGESTROL 400 MG/10 ML CUP PO SCH (09:28)
[2017-02-14] MEDS: PANTOPRAZOLE 40 MG/10 ML VIAL IVP SCH (09:43)
[2017-02-14] MEDS: HEPARIN SODIUM,PORCINE 5,000 UNIT/ML 1 ML VIAL SQ SCH (09:44)
--- NOTE | 2017-02-14 14:17 | P.DS ---
Providers Date of admission: 02/12/17 11:50 Attending physician: Martell More Consults: 02/12/17 12:10 Consult Physician Routine Consulting Provider: Srinivas Millan Consult Reason/Comments: gastric cancer Do you want consulting provider notified?: Yes Primary care physician: Kris Her [facility] Course: 71-year-old gentleman with history of gastric and esophageal cancer metastatic disease given with abdominal pain secondary to cancer patient is probably with pain patient is being treated for urinary tract infection with levofloxacin. And the patient does have leukocytosis patient the is more appropriate for hospice and thing was discussed with the patient.. Feb, Patient is being discharged home with hospice following medications were discontinued except for hospice medications. #1 abdominal pain: Secondary to metastatic cancer, #2 urinary tract infection cannot be ruled out patient does have super pubic pain. #3 leukocytosis can be reactive or secondary to urinary tract infection #4 hypertension #5 metastatic esophageal and gastric cancers. #6 chronic low back pain. Plan - Discharge Summary Discharge Rx Participant: No New Discharge Prescriptions: New LORazepam [Ativan] 1 mg PO QID PRN #30 tab PRN Reason: Anxiety MORPHINE ORAL JUAN CONC 20mg/mL [Roxanol Oral Soln Conc 20MG/ML] 10 mg PO Q4H PRN #30 ml PRN Reason: Pain Discontinued Ciprofloxacin HCl [Cipro] 500 mg PO BID No Action Sertraline [Zoloft] 100 mg PO DAILY Metoprolol Tartrate [Lopressor] 25 mg PO DAILY Gabapentin [Neurontin] 400 mg PO DAILY Amitriptyline HCl [Elavil] 25 mg PO HS PRN PRN Reason: anxiety/sleep Mometasone Furoate [Mometasone Furoate 0.1%] 1 applic BOTH EARS DAILY PRN PRN Reason: itchy ears HYDROcodone/APAP 10-325MG [[place] 10-325] 1 tab PO Q6H PRN #20 tab PRN Reason: Pain Prochlorperazine [Compazine] 10 mg PO Q6H PRN PRN Reason: Nausea fentaNYL 50MCG/HR PATCH [Duragesic 50MCG/HR] 1 patch TRANSDERM Q72H Capecitabine [Xeloda] 2 tab PO BID Megestrol [Megace] 800 mg PO DAILY Discharge Medication List Amitriptyline HCl [Elavil] 25 mg PO HS PRN 05/12/14 [History] Gabapentin [Neurontin] 400 mg PO DAILY 05/12/14 [History] Metoprolol Tartrate [Lopressor] 25 mg PO DAILY 05/12/14 [History] Sertraline [Zoloft] 100 mg PO DAILY 05/12/14 [History] Mometasone Furoate [Mometasone Furoate 0.1%] 1 applic BOTH EARS DAILY PRN [History] HYDROcodone/APAP 10-325MG [[place] 10-325] 1 tab PO Q6H PRN #20 tab 12/17/16 [Rx] Capecitabine [Xeloda] 2 tab PO BID 02/12/17 [History] Megestrol [Megace] 800 mg PO DAILY 02/12/17 [History] Prochlorperazine [Compazine] 10 mg PO Q6H PRN 02/12/17 [History] fentaNYL 50MCG/HR PATCH [Duragesic 50MCG/HR] 1 patch TRANSDERM Q72H 02/12/17 [ History] LORazepam [Ativan] 1 mg PO QID PRN #30 tab 02/14/17 [Rx] MORPHINE ORAL JUAN CONC 20mg/mL [Roxanol Oral Soln Conc 20MG/ML] 10 mg PO Q4H PRN #30 ml 02/14/17 [Rx] Patient Instructions/Handouts: Lorazepam (By mouth), Morphine, Rapid Release ( By mouth), Acute Abdominal Pain (DC) Discharge Disposition: DISCH TO [facility]
== END 2017-02-14 15:25 | disposition hospice, inpatient (51) | DRG 375 ==
LOC: 5MS5E 11:50 → 5ONC 17:44
PROVIDERS: ADMIT Hospitalist; ATTEND Hospitalist
DX: C16.9 Malignant neoplasm of stomach, unspecified (principal); E87.1 Hypo-osmolality and hyponatremia; N39.0 Urinary tract infection, site not specified; E86.0 Dehydration; M45.4 Ankylosing spondylitis of thoracic region; C78.7 Secondary malignant neoplasm of liver and intrahepatic bile duct; F41.9 Anxiety disorder, unspecified; F32.9 Major depressive disorder, single episode, unspecified; I71.4 Abdominal aortic aneurysm, without rupture; E78.5 Hyperlipidemia, unspecified; G89.3 Neoplasm related pain (acute) (chronic); M19.90 Unspecified osteoarthritis, unspecified site; R32 Unspecified urinary incontinence; I10 Essential (primary) hypertension; Z51.5 Encounter for palliative care; Z85.01 Personal history of malignant neoplasm of esophagus; Z87.440 Personal history of urinary (tract) infections; Z82.3 Family history of stroke; Z79.899 Other long term (current) drug therapy; Z86.79 Personal history of other diseases of the circulatory system; Z87.891 Personal history of nicotine dependence; Z85.46 Personal history of malignant neoplasm of prostate; Z79.2 Long term (current) use of antibiotics; Z79.891 Long term (current) use of opiate analgesic; Z17.0 Estrogen receptor positive status [ER+]; Z93.1 Gastrostomy status; Z86.19 Personal history of other infectious and parasitic diseases; Z92.21 Personal history of antineoplastic chemotherapy; Z87.19 Personal history of other diseases of the digestive system; Z90.79 Acquired absence of other genital organ(s)
CPT/HCPCS: 74177; 80048; 80053; 80061; 81001; 82150; 83690; 83735; 85025; 85610; 87040; 87077; 87086; 87186

== ENCOUNTER 2017-02-22 11:13 | Emergency (ER) | payer MEDICARE, BC ==
--- NOTE | 2017-02-22 11:20 | ED ---
General Adult HPI - General Stated complaint: Feeding tube came out Time Seen by Provider: 02/22/17 11:13 Source: EMS, RN notes reviewed, Caregiver Mode of arrival: EMS - History of Present Illness Initial comments: This is a 71-year-old male with a history of end-stage cancer who does have a PEG tube in place who apparently pulled his PEG tube out just prior to arrival. He is sent in because of some bleeding. Patient is a DO NOT RESUSCITATE. Patient report demonstrates no other complaints at this time. Bleeding has been controlled and has stopped. - Related Data Home Medications Medication Instructions Recorded Confirmed Amitriptyline HCl [Elavil] 25 mg PO HS PRN 05/12/14 02/22/17 Gabapentin [Neurontin] 400 mg PO DAILY 05/12/14 02/22/17 Metoprolol Tartrate [Lopressor] 25 mg PO DAILY 05/12/14 02/22/17 Sertraline [Zoloft] 100 mg PO DAILY 05/12/14 02/22/17 Mometasone Furoate [Mometasone 1 applic BOTH EARS DAILY PRN 07/21/16 02/22/17 Furoate 0.1%] Capecitabine [Xeloda] 2 tab PO BID 02/12/17 02/22/17 Megestrol [Megace] 800 mg PO DAILY 02/12/17 02/22/17 Prochlorperazine [Compazine] 10 mg PO Q6H PRN 02/12/17 02/22/17 MORPHINE ORAL JUAN CONC 20mg/mL 10 ml PO Q4H PRN 02/22/17 02/22/17 [Roxanol Oral Soln Conc 20MG/ML] fentaNYL 25MCG/HR PATCH [Duragesic 25 mcg TRANSDERM Q72H 02/22/17 02/22/17 25MCG/HR] fentaNYL 75MCG/HR PATCH [Duragesic 75 mcg TRANSDERM Q72H 02/22/17 02/22/17 75MCG/HR] Previous Rx's Medication Instructions Recorded HYDROcodone/APAP 10-325MG [[place] 1 tab PO Q6H PRN #20 tab 12/17/16 10-325] LORazepam [Ativan] 1 mg PO QID PRN #30 tab 02/14/17 Allergies Allergy/AdvReac Type Severity Reaction Status Date / Time cephalexin [From Keflex] Allergy Rash/Hives Verified 02/22/17 12:14 Review of Systems ROS Statement: Those systems with pertinent positive or pertinent negative responses have been documented in the HPI. ROS Other: All systems not noted in ROS Statement are negative. Limitations: ROS unobtainable due to patients medical condition Past Medical History Past Medical History: Cancer, Hypertension, Osteoarthritis (OA) Additional Past Medical History / Comment(s): Current UTI and is in the middle of his antibiotics for this, CHRONIC BACK PAIN, prostate cancer in 1995 HAD SX And radiation-pt incont of urine wears a pad.hepatitis as child. aaa pt unsure of size, "borderline dm- no meds and does'nt check blood sugars, September 2016 dx esophageal ca with mets to liver currently receiving oral chemotherapy and once a month IV chemotherapy, recently discovered mass in stomach, has peg tube. History of Any Multi-Drug Resistant Organisms: None Reported Past Surgical History: Hernia Repair, Prostate Surgery Additional Past Surgical History / Comment(s): Peg tube insertion, UMBILICAL AND INGUINAL HERNIA, surgery for nose bleeds, egd w/ bx, liver bx, prostatectomy Past Anesthesia/Blood Transfusion Reactions: No Reported Reaction Smoking Status: Former smoker - Past Family History Mother Family Medical History: CVA/TIA Additional Family Medical History / Comment(s): mom from a stroke when pt was 4 years old. Father Family Medical History: No Reported History General Exam - General Exam Comments Initial Comments: This is a well-developed obtunded appearing patient Limitations: altered mental status Head exam: Present: atraumatic Eye exam: Present: normal appearance, PERRL, EOMI. Absent: scleral icterus, conjunctival injection, periorbital swelling ENT exam: Present: mucous membranes dry Neck exam: Present: normal inspection. Absent: tenderness, meningismus, lymphadenopathy Respiratory exam: Present: normal lung sounds bilaterally Cardiovascular Exam: Present: normal rhythm GI/Abdominal exam: Present: soft, other (Egg to say demonstrate no active bleeding no drainage.) Rectal exam: Present: deferred Extremities exam: Present: normal inspection, full ROM, normal capillary refill. Absent: tenderness, pedal edema, joint swelling, calf tenderness Back exam: Absent: tenderness Neurological exam: Present: altered, CN II-XII intact Skin exam: Present: warm, dry, intact, normal color. Absent: rash Course Vital Signs 02/22/17 02/22/17 11:29 12:55 Temperature 98.8 F Pulse Rate 134 H 135 H Respiratory 16 18 Rate Blood Pressure 142/79 147/84 O2 Sat by Pulse 92 L 96 Oximetry Procedures - Procedures Initial comment: The site of the PEG tube was cleaned and prepped sterilely sterile K-Y jelly was used for lubricant I was able to put a new PEG tube and without difficulty. There was good gastric return afterwards. The patient did tolerate this well. It was a 20-[place] PEG tube. I did a long discussion with the power of compliance attorney regarding the patient's status the family is going to reconsider even PEG tube feeding at this time. He is stable for return to his residence. Disposition Clinical Impression: PEG tube malfunction Disposition: HOME SELF-CARE Condition: Good Instructions: How to Use and Care for Your PEG Tube (ED) Referrals: Kris Her MD [Primary Care Provider] - 1-2 days
[2017-02-22 11:34] VITALS: TEMP 98.8
[2017-02-22 12:55] VITALS: RESP 18
[2017-02-22 13:58] VITALS: BP 147/74; PULSE 122
== END 2017-02-22 14:20 | disposition home or self-care (01) ==
LOC: EC 11:13
DX: K94.23 Gastrostomy malfunction (principal); I10 Essential (primary) hypertension; Z85.46 Personal history of malignant neoplasm of prostate; Z87.891 Personal history of nicotine dependence; Z88.1 Allergy status to other antibiotic agents; Z79.899 Other long term (current) drug therapy
CPT/HCPCS: 43760; 99283